=== PATIENT | male | born 1955 | race Caucasian/White ===

== ENCOUNTER → 2023-09-28 08:13 | Outpatient (REF) | payer MEDICARE, OTHER, SELFPAY | LOC: RCS 08:13 | PROVIDERS: ATTENDING PHYSICIAN Internal Medicine Cardiovascular Disease; FAMILY PHYSICIAN Family Medicine | DX: Q23.1 Congenital insufficiency of aortic valve (principal); I35.0 Nonrheumatic aortic (valve) stenosis | CPT/HCPCS: 93306 ==

== ENCOUNTER → 2023-11-01 11:22 | Outpatient (REF) | payer MEDICARE, OTHER, SELFPAY | LOC: RAD 11:22 | PROVIDERS: ATTENDING PHYSICIAN Family Medicine | DX: J18.9 Pneumonia, unspecified organism (principal) | CPT/HCPCS: 71046 ==

== ENCOUNTER 2023-11-12 19:05 | Emergency (ER) | payer MEDICARE, OTHER, SELFPAY ==
[2023-11-12 19:08] VITALS: BP 140/84
[2023-11-12 19:26] LABS: % Basophils 0.4 % (0-2); % Eosinophils 0.3 % (0-6); % Immature Granulocytes 1.4 % (0-0.5); % Lymphocytes 15.6 % (20.5-51.1); % Monocytes 6.9 % (1.7-9.3); % Neutrophils 75.4 % (42.2-75.2); Absolute Basophils 0.1 10^3/uL (0-0.2); Absolute Immature Granulocytes 0.2 10^3/uL (0-0.05); Absolute Lymphocytes 2.5 10^3/uL (1.2-3.4); Absolute Monocytes 1.1 10^3/uL (0.1-0.6); Absolute Neutrophils 11.9 10^3/uL (1.4-6.5); Hematocrit 39.5 % (39.0-52.0); Hemoglobin 14.2 g/dL (13.0-18.0); Mean Corp Hgb Conc. 35.9 g/dL (33.0-37.0); Mean Corpuscular Volume 83.3 fL (80.0-94.0); Nucleated Red Blood Cells % 0 % (-); Platelet Count 131 10^3/uL (130-400); Red Blood Cell Count 4.74 10^6/uL (4.70-6.10); Red Cell Dist. Width 13.1 % (11.5-14.5); White Blood Cell Count 15.8 10^3/uL (4.8-10.8)
[2023-11-12 19:36] LABS: Lactic Acid 1.3 mmol/L (0.7-2.0)
[2023-11-12 19:45] LABS: ALT (SGPT) 25 U/L (0-50); AST (SGOT) 34 U/L (17-59); Albumin 4.4 g/dl (3.5-5.0); Alkaline Phosphatase 135 U/L (38-126); Blood Urea Nitrogen 25 mg/dl (9-20); Calcium 10.3 mg/dl (8.4-10.2); Carbon Dioxide 24 mmol/L (22-30); Chloride 100 mmol/L (98-107); Glucose 114 mg/dl (70-99); Potassium 3.6 mmol/L (3.5-5.1); Sodium 135 mmol/L (135-145); Total Bilirubin 1.3 mg/dl (0.2-1.3); Total Protein 6.7 g/dl (6.3-8.2); eGFR > 60.00
--- NOTE | 2023-11-12 20:20 | ED.GENMED ---
History of Present Illness
General
Chief Complaint: Fever
Source: patient and spouse
Time Seen by Provider: 11/12/23 19:51
Travel History
Have you had any contact with someone who has COVID-19?: No
Do you have any symptoms of coronavirus? Fever > 100 degrees, chills, cough, shortness of breath, sore throat, loss of taste or smell, muscle aches, or headache?: No
History of Present Illness
History of Present Illness:
68-year-old male who states that he has had a productive cough, mild, throughout the week, and mild 'sore' feeling in the right flank area yesterday who awoke this morning with a mild headache associated with a fever of 102. Throughout the day,
fever and chills and fatigue has persisted. His headache is now much better. He just took Advil Cold and Sinus and says he feels remarkably better. He denies sore throat, rhinorrhea, chest pain, dyspnea. He notes urinary frequency but denies
dysuria or hematuria. He denies groin pain, abdominal pain, nausea, vomiting. He denies nuchal rigidity or photophobia. Patient has a history of CLL.
Past History
Past History
ED Past Medical History: Asthma, COPD, HTN, Hypercholesterolemia, Other (CLL) and Other (Thyroid nodules, migraines, bicuspid valve leaks, pneumonia, hepatitis C, kidney stones, thyroid cancer, shingles, skin cancer, anemia hypogonadism)
ED Past Surgical History: Tonsilectomy and Other (Needle biopsies of the thyroid, Benadryl for deviated septum, melanoma removed from the chest)
Social History
Tobacco: Non-smoker
Alcohol: Occasional
Drug: None
Personal:
Living: with family
Employment: Employed
Phy Exam
Physical Exam
Physical Exam:
GENERAL: Alert , in no apparent distress
EYE: pupils equal and reactive, no photophobia,
NECK: Supple, no significant adenopathy.
ENT: o/p clr, mm dry.
CARDIAC: Regular rate and rhythm .
LUNGS: Clear breath sounds bilaterally, no acute respiratory distress, no wheezes/rales/rhonchi
ABDOMEN: Soft, without focal tenderness, no r/g, no cvat
NEUROLOGICAL: Alert and oriented, no focal neuro deficits
SKIN: Warm and dry, skin intact.
MUSCULOSKELETAL: No edema, well perfused.
PSYCH: Normal and appropriate interaction.
Course
Orders/Labs/Results
Orders:
Orders
11/12/23 19:16
CMP [Comprehensive Metabolic Panel] Urgent
Complete Blood Count/With Diff Urgent
Lactic Acid Urgent
Influenza A+B Rapid Molecular Urgent
DIALLO Source: Nasal Swab
Specimen Description:
11/12/23 20:20
0.9% Sodium Chloride 1000 ml [Nss] 1,000 ml IV BOLUS
CR Chest - 2 Views Urgent
Comment:
Reason For Exam: FEVER COUGH
11/12/23 20:23
Influenza A+B Rapid Molecular Urgent
DIALLO Source: [facility]
Specimen Description:
11/12/23 20:33
COVID-19 Antigen Urgent
Source: Nasal Swab
Urinalysis Reflex To Culture Urgent
Date Specimen was Collected: 11/12/23
Time Specimen was Collected: 20:24
11/12/23 22:51
Amoxicillin 875 mg/Clav 125 mg [Augmentin 875 mg/125 mg] 1 tablet PO NOW STA
Doxycycline [Vibramycin] 100 mg PO NOW STA
Abnormal Lab Results
11/12/23 11/12/23
19:16 20:33
WBC 15.8 H 10^3/uL
(4.8-10.8)
MPV 11.0 H fL
(7.4-10.4)
Abs Immat Gran (auto) 0.2 H 10^3/uL
(0-0.05)
Absolute Neuts (auto) 11.9 H 10^3/uL
(1.4-6.5)
Absolute Monos (auto) 1.1 H 10^3/uL
(0.1-0.6)
Immature Gran % 1.4 H %
(0-0.5)
Neutrophils % 75.4 H %
(42.2-75.2)
Lymphocytes % 15.6 L %
(20.5-51.1)
BUN 25 H mg/dl
(9-20)
Glucose 114 H mg/dl
(70-99)
Calcium 10.3 H mg/dl
(8.4-10.2)
Alkaline Phosphatase 135 H U/L
(38-126)
Urine Ketones Trace A
(Negative)
11/12/23 19:16
11/12/23 19:16
Vital Signs
Initial and Last Documented VS:
Initial Vital Signs
Temp Pulse Resp BP Pulse Ox
98.9 F 112 24 140/84 96
11/12/23 19:08 11/12/23 19:08 11/12/23 19:08 11/12/23 19:08 11/12/23 19:08
Last Documented Vital Signs
Temp Pulse Resp BP Pulse Ox
98.9 F 84 21 130/63 93
11/12/23 19:08 11/12/23 22:30 11/12/23 22:30 11/12/23 21:00 11/12/23 22:30
*Critical Care Note
Total Time (30-74mins, 75-104mins- exclusive of procedures): Not Applicable
Update Note
Update Note:
Patient presents to the Emergency Department with fever fatigue___
Number and Complexity of Problems Addressed at the Encounter
� Chronic conditions affecting care:
� Acute Exacerbation and/or Progression of Chronic Illness:
� Differential Diagnosis includes: But not limited to influenza, COVID, pneumonia, UTI, neutropenic fever, etc.
Amount and/or Complexity of Data to be Reviewed and Analyzed
� I performed an independent evaluation of and my interpretation is:
EKG:
CT:
Xrays: Read by me, confirmed by radiology left lower lobe pneumonia noted
Laboratory Studies: Mild leukocytosis, otherwise generally unremarkable
Other:
� Review of other/old records reveals: Reviewed patient's prior discharge summaries including aortic valve replacement and colostomy reversal.
� Clinical information was obtained by an independent historian: who is bedside
� Prescriptions/Medications Considered but not given:
� Further testing considered but not performed:
Risk of Complications and/or Morbidity or Mortality of Patient Management
� Social determinants of health affecting care:
� Discussion with other providers (PCP, Hospitalists, Consultants, etc):
� Escalation of care including admission/observation vs risk of discharge considered: 10:55 PM reassessment here patient remains incredibly nontoxic and well-appearing, does not raise suspicion for sepsis/bacteremia, etc.
Patient eager to go home with treatment with p.o. antibiotics understanding importance of follow-up and reasons return to the ER immediately. He mentions that he had pneumonia in July and recovered well from that. His pulse ox remained stable
as does the rest of his vital signs.
ED Attending Note
-
Portions of this chart may have been created with voice recognition software.� Occasional wrong word or��sound alike� substitutions may have occurred due to the inherent limitations of voice recognition software.
Discharge Plan
Departure
Patient Disposition: Home (Routine Discharge)
Date of Disposition: 11/12/23
Time of Disposition: 22:52
Patient with high blood pressure during this ER visit?: Yes
Condition: Good
Discharge Problem:
Pneumonia
Instructions: Pneumonia in adults, BLOOD PRESSURE
Prescriptions:
New
amoxicillin-pot clavulanate 875-125 mg tablet
1 tab PO BID Qty: 14 0RF
doxycycline hyclate 100 mg capsule
100 mg PO BID Qty: 14 0RF
No Action
levothyroxine 75 MCG tablet
75 mcg PO DAILY
lorazepam 0.5 MG tablet
0.5 mg PO BID
ezetimibe 10 MG tablet
10 mg PO QPM
ascorbic acid (vitamin C) [Vitamin C] 500 MG tablet
500 mg PO DAILY
aspirin 81 MG tablet,delayed release (DR/EC)
81 mg PO DAILY
acyclovir 200 MG capsule
200 mg PO BID
cholecalciferol (vitamin D3) 2,000 UNITS tablet
2,000 units PO DAILY
metoprolol tartrate 25 MG tablet
25 mg PO BID
guaifenesin [Mucus Relief ER] 600 MG tablet extended release 12hr
600 mg PO BID
albuterol sulfate 1 PUFF HFA aerosol inhaler
2 puff inhalation R Q4HPRN PRN (Reason: sob)
alfuzosin 10 MG tablet extended release 24 hr
10 mg PO QPM
multivitamin with folic acid [Tab-A-Charla] 1 TABLET tablet
1 tab PO DAILY
sildenafil (pulm.hypertension) 20 MG tablet
20 mg PO DAILYPRN PRN (Reason: ed)
pseudoephedrine-ibuprofen 1 TAB tablet
2 tab PO DAILYPRN PRN (Reason: headache)
atorvastatin 40 MG tablet
40 mg PO DAILY 30 Days Qty: 30 0RF
testosterone [Testim] 5 GM gel
5 gm TD DAILY
acetaminophen 325 MG tablet
650 mg PO PRN PRN (Reason: PAIN)
acetaminophen [Tylenol Extra Strength] 500 MG tablet
1,000 mg PO PRN PRN (Reason: PAIN)
fluticasone furoate-vilanterol [Breo Ellipta] 1 EACH blister with device
1 inh PO DAILY
jwcavbcoms-gmtwulnsqwwng-xcri 1 TAB tablet
50 - 300 mg PO PRN PRN (Reason: PAIN)
hydrocodone-acetaminophen 1 TABLET tablet
1 tab PO Q4HPRN PRN (Reason: moderate to severe pain) Qty: 25 0RF
clopidogrel [Plavix] 75 MG tablet
75 mg PO DAILY Qty: 21 0RF
Patient Comments:
21 day regimen started 08/29/21-08/07/21, may resume
Referrals:
Irwin Kay MD [Family Provider] - Follow up in 2-3 days
UNKNOWN - PT DOES,NOT KNOW [Unknown Provider] -
Activity Restrictions/Additional Instructions:
PLEASE SEE YOUR DOCTOR IN CLOSE FOLLOW UP. IF YOU DEVELOP TROUBLE BREATHING, CONTINUED FEVERS, VOMITING, CHEST PAIN, DIZZINESS, VOMITING, BLEEDING, GET WORSE, DO NOT GET BETTER, OR OTHER WORRISOME SIGNS, GO TO THE ER IMMEDIATELY!
Interventions
Interventions:
*Risk Screen - Suicide Last Done: 11/12/23 19:08
*Neglect/Abuse Screening Last Done: 11/12/23 19:08
Discharge Date and Time
Print Language: TRINIDADIAN
[2023-11-12] MEDS: NSS 1000 IV (20:33)
[2023-11-12 20:35] VITALS: BP 119/67
[2023-11-12 20:52] LABS: Urine Albumin Negative (Neg - Trace); Urine Bilirubin Negative (Negative); Urine Character Clear (Clear); Urine Color Yellow; Urine Glucose Negative (Negative); Urine Ketone Trace (Negative); Urine Leukocyte Negative (Negative); Urine Nitrite Negative (Negative); Urine Occult Blood Negative (Negative); Urine Urobilinogen Negative (Neg - 1+)
[2023-11-12 21:00] VITALS: BP 130/63
[2023-11-12 21:04] LABS: COVID-19 Antigen Negative (Negative)
[2023-11-12 22:50] VITALS: BP 124/65
[2023-11-12] MEDS: AUGMENTIN 875 MG/125 MG 1 TABLET PO (23:01)
[2023-11-12] MEDS: VIBRAMYCIN 100 MG PO (23:01)
== END 2023-11-12 23:22 | disposition home or self-care (01) ==
LOC: EMR 19:05
PROVIDERS: Student in an Organized Health Care Education/Training Program; EMERGENCY PHYSICIAN Emergency Medicine; FAMILY PHYSICIAN Family Medicine
DX: J18.9 Pneumonia, unspecified organism (principal); J45.909 Unspecified asthma, uncomplicated; J44.9 Chronic obstructive pulmonary disease, unspecified; I10 Essential (primary) hypertension; E78.00 Pure hypercholesterolemia, unspecified; C91.10 Chronic lymphocytic leukemia of B-cell type not having achieved remission; E04.1 Nontoxic single thyroid nodule; J44.0 Chronic obstructive pulmonary disease with (acute) lower respiratory infection; Z85.820 Personal history of malignant melanoma of skin; Z85.828 Personal history of other malignant neoplasm of skin; Z85.850 Personal history of malignant neoplasm of thyroid; Z86.19 Personal history of other infectious and parasitic diseases; Z87.442 Personal history of urinary calculi; Z95.1 Presence of aortocoronary bypass graft; Z95.2 Presence of prosthetic heart valve
CPT/HCPCS: 99283; 96360; 71046; 80053; 81003; 83605; 85025; 87502; 87811

== ENCOUNTER → 2023-11-28 06:20 | Day surgery (SDC) | payer MEDICARE, OTHER, SELFPAY | LOC: GI 06:20 | PROVIDERS: ATTENDING PHYSICIAN Surgery; FAMILY PHYSICIAN Radiology Vascular & Interventional Radiology | DX: Z12.11 Encounter for screening for malignant neoplasm of colon (principal); Z86.010 Personal history of colon polyps; Z09 Encounter for follow-up examination after completed treatment for conditions other than malignant neoplasm; K57.30 Diverticulosis of large intestine without perforation or abscess without bleeding; D12.5 Benign neoplasm of sigmoid colon | CPT/HCPCS: 45380; 88305 ==

== ENCOUNTER → 2023-12-14 09:32 | Outpatient (REF) | payer MEDICARE, OTHER, SELFPAY | LOC: RAD 09:32 | PROVIDERS: ATTENDING PHYSICIAN Family Medicine | DX: Z87.01 Personal history of pneumonia (recurrent) (principal) | CPT/HCPCS: 71046 ==

== ENCOUNTER → 2023-12-26 12:40 | Outpatient (REF) | payer MEDICARE, OTHER, SELFPAY ==
[2023-12-26 14:11] LABS: Urine Albumin Negative (Neg - Trace); Urine Bilirubin Negative (Negative); Urine Character Clear (Clear); Urine Color Yellow; Urine Glucose Negative (Negative); Urine Ketone Negative (Negative); Urine Leukocyte Negative (Negative); Urine Nitrite Negative (Negative); Urine Occult Blood Negative (Negative); Urine Specific Gravity 1.005 (<1.030); Urine Urobilinogen Negative (Neg - 1+)
[2023-12-26 14:13] LABS: % Basophils 0.6 % (0-2); % Eosinophils 1.9 % (0-6); % Immature Granulocytes 1.8 % (0-0.5); % Lymphocytes 17.9 % (20.5-51.1); % Monocytes 6.3 % (1.7-9.3); % Neutrophils 71.5 % (42.2-75.2); Absolute Basophils 0.1 10^3/uL (0-0.2); Absolute Eosinophils 0.3 10^3/uL (0-0.7); Absolute Immature Granulocytes 0.3 10^3/uL (0-0.05); Absolute Lymphocytes 2.5 10^3/uL (1.2-3.4); Absolute Monocytes 0.9 10^3/uL (0.1-0.6); Absolute Neutrophils 10.1 10^3/uL (1.4-6.5); Hematocrit 43.2 % (39.0-52.0); Hemoglobin 14.6 g/dL (13.0-18.0); Mean Corp Hgb Conc. 33.8 g/dL (33.0-37.0); Mean Corpuscular Hgb 30.2 pg (27.0-31.0); Mean Corpuscular Volume 89.3 fL (80.0-94.0); Mean Platelet Volume 12.4 fL (7.4-10.4); Nucleated Red Blood Cells % 0 % (-); Platelet Count 99 10^3/uL (130-400); Red Blood Cell Count 4.84 10^6/uL (4.70-6.10); Red Cell Dist. Width 13.5 % (11.5-14.5); White Blood Cell Count 14.2 10^3/uL (4.8-10.8)
[2023-12-26 14:20] LABS: Erythrocyte Sed Rate 36 mm/hour (0-20)
[2023-12-26 14:37] LABS: ALT (SGPT) 29 U/L (0-50); AST (SGOT) 28 U/L (17-59); Albumin 4.3 g/dl (3.5-5.0); Alkaline Phosphatase 113 U/L (38-126); Blood Urea Nitrogen 17 mg/dl (9-20); Calcium 9.1 mg/dl (8.4-10.2); Carbon Dioxide 27 mmol/L (22-30); Chloride 104 mmol/L (98-107); Glucose 97 mg/dl (70-99); Potassium 3.8 mmol/L (3.5-5.1); Sodium 139 mmol/L (135-145); Total Bilirubin 0.8 mg/dl (0.2-1.3); Total Protein 6.8 g/dl (6.3-8.2); eGFR > 60.00
[2023-12-26 14:48] LABS: Procalcitonin 0.09 ng/ml (0.0-0.25)
== END ==
LOC: CLAB 12:40
PROVIDERS: ATTENDING PHYSICIAN Family Medicine
DX: R50.9 Fever, unspecified (principal)
CPT/HCPCS: 36415; 71046; 80053; 81003; 84145; 85025; 85652; 86140; 87040

== ENCOUNTER 2024-01-26 12:56 | Inpatient (IN) | payer MEDICARE, OTHER, SELFPAY ==
[2024-01-26] VITALS (18 sets, daily range): BP systolic 123–152; BP diastolic 63–89; BMI 24.5
[2024-01-26] MEDS: DUONEB 3 ML INH (09:03)
--- NOTE | 2024-01-26 09:09 | ED.GENMED ---
History of Present Illness
General
Chief Complaint: Cough
Source: patient, records and spouse
Exam Limitations: none
Time Seen by Provider: 01/26/24 08:35
Nursing documentation reviewed up to this point in time: agreed with
History of Present Illness
History of Present Illness:
68-year-old male history of CLL CAD status post bypass surgery is on his fourth course of antibiotics this year for pneumonia previously on Augmentin and doxycycline helped initially and then the symptoms return saw pulmonary Dr. Pinto, had a
sputum culture that revealed E. coli, recently started on Levaquin which again helped with his cough and fever this morning was coughing expectorating up some blood
He gets IVIG, from Dr. Cedeño he is on a twice daily medicine for CLL through hematology oncology [facility]
Tells me his platelet counts are usually 80-90,000 he takes baby aspirin
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
Past History
Past History
ED Past Medical History: Asthma, COPD, HTN, Hypercholesterolemia, Other (CLL) and Other (Thyroid nodules, migraines, bicuspid valve leaks, pneumonia, hepatitis C, kidney stones, thyroid cancer, shingles, skin cancer, anemia hypogonadism)
ED Past Surgical History: Appendectomy, Bowel resection and Tonsilectomy
Social History
Tobacco: Non-smoker
Alcohol: Occasional
Drug: None
Personal:
Living: with family
Employment: Employed
Review of Systems
Review of Systems
All Other Systems: Not applicable
Constitutional: Reports fatigue; Denies fever or chills
Respiratory: Reports cough, hemoptysis and trouble breathing
Cardiac: Reports no symptoms
ABD/GI: Reports no symptoms
: Reports no symptoms
Musculoskeletal: Reports no symptoms
Skin: Reports no symptoms
Phy Exam
Physical Exam
Physical Exam:
Physical Exam
General: 68 male mild distress coughing up some bloody sputum
Neck: No jaundice
Heart: s1/s2 regular rate and rhythm, no murmur. equal radial pulses.
Lungs: Rhonchi left greater than right
Abdomen: Nontender
Neuro: alert and oriented. no focal neurological deficits
Skin: no rash
Psychiatric: well kept. interactive and cooperative
Extremities: no edema. no calf tenderness.
Course
Orders/Labs/Results
Orders:
Orders
01/26/24 08:21
ECG [Electrocardiogram (*1)] Urgent
Reason for Study: Chest Pain
EKG- Treatment ONCE
01/26/24 08:35
Cardiac Monitoring- Treatment ONCE
01/26/24 08:36
Electrocardiogram (*1) Stat
Reason for Study: Other
Other Reason for Exam: pneumonia
EKG- Treatment ONCE
CR Chest - 2 Views Urgent
Comment:
Reason For Exam: sob
01/26/24 08:59
Type+Screen Urgent
Complete Blood Count/With Diff Urgent
Comprehensive Metabolic Panel Urgent
Lactic Acid Q4H
Comment: CANCEL 2nd LACTIC ACID IF 1st LACTIC ACID IS LESS THAN 2
Blood Culture Q30M
DILALO Source: Blood/Venous
Specimen Description:
01/26/24 09:02
Ipratropium/Albuterol Sulfate [Duoneb] 3 ml .ROUTE .STK-MED ONE
01/26/24 09:03
Ipratropium/Albuterol Sulfate [Duoneb] 3 ml INH R NOW ONE
01/26/24 09:15
Blood Culture Q30M
DIALLO Source: Blood/Venous
Specimen Description:
01/26/24 09:45
Respiratory Culture/Gram Stain Urgent
DIALLO Source: Sputum
Specimen Description:
Date Specimen was Collected: 01/26/24
Time Specimen was Collected: 09:06
Abnormal Lab Results
01/26/24
08:59
WBC 12.7 H 10^3/uL
(4.8-10.8)
MPV 11.7 H fL
(7.4-10.4)
Abs Immat Gran (auto) 0.2 H 10^3/uL
(0-0.05)
Absolute Neuts (auto) 7.2 H 10^3/uL
(1.4-6.5)
Absolute Monos (auto) 0.7 H 10^3/uL
(0.1-0.6)
Absolute Eos (auto) 1.2 H 10^3/uL
(0-0.7)
Immature Gran % 1.5 H %
(0-0.5)
Eosinophils % 9.7 H %
(0-6)
Chloride 108 H mmol/L
(98-107)
BUN 24 H mg/dl
(9-20)
Glucose 132 H mg/dl
(70-99)
01/26/24 08:59
01/26/24 08:59
Vital Signs
Initial and Last Documented VS:
Initial Vital Signs
Temp Pulse BP Pulse Ox
98.1 F 96 137/81 97
01/26/24 08:19 01/26/24 08:19 01/26/24 08:19 01/26/24 08:19
Last Documented Vital Signs
Temp Pulse Resp BP Pulse Ox
98.1 F 103 24 129/89 95
01/26/24 08:19 01/26/24 09:30 01/26/24 09:30 01/26/24 09:00 01/26/24 09:30
MDM/Problems Addressed
Differential Diagnosis Includes:
Infectious bronchitis irritation thrombocytopenia malignancy conceivably PE
MDM/Problems Addressed:
Cough of office
Chronic conditions affecting care:
Pneumonia CLL
Acute Exacerbation and/or Progression of Chronic Illness:
Pneumonia CLL
*Critical Care Note
Total Time (30-74mins, 75-104mins- exclusive of procedures): 15
Update Note
Update Note:
Update labs noted hemoglobin white count platelet count noted chest x-ray noted report noted believe it would be prudent to admit the patient to the hospital, message sent to the hospitalist and pulmonary
ED Attending Note
-
Portions of this chart may have been created with voice recognition software.� Occasional wrong word or��sound alike� substitutions may have occurred due to the inherent limitations of voice recognition software.
Discharge Plan
Departure
Patient Disposition: Admit
Date of Disposition: 01/26/24
Time of Disposition: 09:59
Admit to: Med/Surg
Presentation/result/management discussed w/ accepting MD/DO: Hospitalist
Condition: Fair
Covid-19: Not Applicable
Discharge Problem:
CLL (chronic lymphocytic leukemia), Acute bronchitis, Cough with hemoptysis
Prescriptions:
No Action
levothyroxine 75 MCG tablet
75 mcg PO DAILY
lorazepam 0.5 MG tablet
0.5 mg PO BID
ezetimibe 10 MG tablet
10 mg PO QPM
ascorbic acid (vitamin C) [Vitamin C] 500 MG tablet
500 mg PO DAILY
aspirin 81 MG tablet,delayed release (DR/EC)
81 mg PO DAILY
acyclovir 200 MG capsule
200 mg PO BID
cholecalciferol (vitamin D3) 2,000 UNITS tablet
2,000 units PO DAILY
metoprolol tartrate 25 MG tablet
25 mg PO BID
guaifenesin [Mucus Relief ER] 600 MG tablet extended release 12hr
600 mg PO BID
albuterol sulfate 1 PUFF HFA aerosol inhaler
2 puff inhalation R Q4HPRN PRN (Reason: sob)
alfuzosin 10 MG tablet extended release 24 hr
10 mg PO QPM
multivitamin with folic acid [Tab-A-Charla] 1 TABLET tablet
1 tab PO DAILY
sildenafil (pulm.hypertension) 20 MG tablet
20 mg PO DAILYPRN PRN (Reason: ed)
pseudoephedrine-ibuprofen 1 TAB tablet
2 tab PO DAILYPRN PRN (Reason: headache)
atorvastatin 40 MG tablet
40 mg PO DAILY 30 Days Qty: 30 0RF
testosterone [Testim] 5 GM gel
5 gm TD DAILY
acetaminophen 325 MG tablet
650 mg PO PRN PRN (Reason: PAIN)
acetaminophen [Tylenol Extra Strength] 500 MG tablet
1,000 mg PO PRN PRN (Reason: PAIN)
fluticasone furoate-vilanterol [Breo Ellipta] 1 EACH blister with device
1 inh PO DAILY
bwvytkhkma-muzkljxgvmucf-mssc 1 TAB tablet
50 - 300 mg PO PRN PRN (Reason: PAIN)
hydrocodone-acetaminophen 1 TABLET tablet
1 tab PO Q4HPRN PRN (Reason: moderate to severe pain) Qty: 25 0RF
clopidogrel [Plavix] 75 MG tablet
75 mg PO DAILY Qty: 21 0RF
Patient Comments:
21 day regimen started 08/29/21-08/07/21, may resume
amoxicillin-pot clavulanate 875-125 mg tablet
1 tab PO BID Qty: 14 0RF
doxycycline hyclate 100 mg capsule
100 mg PO BID Qty: 14 0RF
Referrals:
Irwin Kay MD [Family Provider] -
Interventions
Interventions:
*Risk Screen - Suicide Last Done: 01/26/24 08:36
*General Assessment Last Done: 01/26/24 08:36
*Neglect/Abuse Screening Last Done: 01/26/24 08:36
ED- Fall Risk Assessment Last Done: 01/26/24 08:36
*ED COVID-19 Vaccine History Last Done: 01/26/24 08:36
ED- Pulmonary Assessment Last Done: 01/26/24 08:36
Discharge Date and Time
Print Language: ROMANSH
[2024-01-26 09:19] LABS: % Basophils 1.3 % (0-2); % Eosinophils 9.7 % (0-6); % Immature Granulocytes 1.5 % (0-0.5); % Lymphocytes 25.2 % (20.5-51.1); % Monocytes 5.5 % (1.7-9.3); % Neutrophils 56.8 % (42.2-75.2); Absolute Basophils 0.2 10^3/uL (0-0.2); Absolute Eosinophils 1.2 10^3/uL (0-0.7); Absolute Immature Granulocytes 0.2 10^3/uL (0-0.05); Absolute Lymphocytes 3.2 10^3/uL (1.2-3.4); Absolute Monocytes 0.7 10^3/uL (0.1-0.6); Absolute Neutrophils 7.2 10^3/uL (1.4-6.5); Hematocrit 42.7 % (39.0-52.0); Hemoglobin 14.5 g/dL (13.0-18.0); Mean Corpuscular Hgb 29.6 pg (27.0-31.0); Mean Corpuscular Volume 87.1 fL (80.0-94.0); Mean Platelet Volume 11.7 fL (7.4-10.4); Nucleated Red Blood Cells % 0 % (-); Platelet Count 146 10^3/uL (130-400); Red Cell Dist. Width 13.3 % (11.5-14.5); White Blood Cell Count 12.7 10^3/uL (4.8-10.8)
[2024-01-26 09:23] LABS: Lactic Acid 1.8 mmol/L (0.7-2.0)
[2024-01-26 09:30] LABS: ALT (SGPT) 30 U/L (0-50); AST (SGOT) 36 U/L (17-59); Albumin 4.5 g/dl (3.5-5.0); Alkaline Phosphatase 121 U/L (38-126); Blood Urea Nitrogen 24 mg/dl (9-20); Calcium 9.5 mg/dl (8.4-10.2); Carbon Dioxide 26 mmol/L (22-30); Chloride 108 mmol/L (98-107); Estimated Creatinine Clearance 61 ml/min; Glucose 132 mg/dl (70-99); Potassium 4.5 mmol/L (3.5-5.1); Sodium 141 mmol/L (135-145); Total Protein 6.8 g/dl (6.3-8.2); eGFR 59.47
--- NOTE | 2024-01-26 12:00 | CON.PUL ---
Addendum entered and electronically signed by Carlos Paredes MD 01/26/24 13:15:
error below
Pt not taking Plavix
Will hold ASA
Original Note:
Consultation
Consultation Request
Date/Time Consultation Requested: 01/25
Date/Time Consultation Performed: 01/25
Reason for Consultation: Hemoptysis
Medical History
-
History of Present Illness:
History obtained from the patient, at bedside, ED staff, hospital records and outpatient records. Patient is a pleasant 68-year-old male with history of CLL, hypogammaglobulinemia on IVIG, on chronic Zanubrutinib follwed at [facility] ([facility]
[place]), with recent recurrent pneumonia, 4 times in 2023. More recently, he was seen in the pulmonary office, started on outpatient nebulized therapy. He was initially treated with Augmentin/doxycycline, but culture grew out E. coli transition to
Levaquin therapy. After a few days of Levaquin, he felt improved with regards to fatigue, cough improved. This morning, he woke up at 2 in the morning as is typical for him and proceeded to expectorate bright red blood. This progressed to the
point where he brought himself into [facility]. Throughout this he denied significant chest pain, chest tightness, lightheadedness, dizziness, palpitations or shortness of breath. He admits to some lightheadedness with cough spasms but
this is chronic. Upon arrival to [facility], afebrile, pulse 96, blood pressure 137/81, 97%. Chest x-ray suggest patchy pneumonia on the right side. Reviewed recent CT chest done at [facility] 01/10/2024 which reveals extensive right upper lobe
pneumonia and mild left lower lobe consolidation
Presently, patient has not expectorated now for 90 minutes which is the longest he has gone without coughing up blood. He otherwise appears to be comfortable
Patient exercises regularly, plays golf, plays pickle ball, last played 3 weeks ago
.
PMH: History of CLL diagnosed 2012 status post chemotherapy, recurred in 2020, now on chronic Zanubrutinib followed at [facility], IVIG for hypogammaglobulinemia, recurrent pneumonia, chronic thrombocytopenia, hypertension, hypercholesterolemia, history
of asthma, history of TIA, thyroid nodule, history of sleep apnea, not on CPAP for 10 years. Bypass surgery, aortic valvular surgery 2019 at , appendectomy, tonsillectomy, sigmoidectomy/colostomy secondary to diverticulitis 2020, colostomy
reversal 2021
Past Medical History
Past Medical History: None (See above)
Past Surgical History: None (See above)
Social History
Tobacco: Non-smoker
Alcohol: Occasional
Drug: None
Personal:
Living: With Family
Employment: Employed ([employer])
Family History
Family History: Other (Brother from CLL complicated by fungal pneumonia respiratory failure. Mother had CLL, in ninth decade. Family history negative for blood clots. Children are healthy)
Allergies / Home Medications
Allergies
Allergy/AdvReac Type Severity Reaction Status Date / Time
cat dander Allergy WHEEZING Verified 01/26/24 08:27
immune globulin,gamma (IgG) Allergy WHEEZING Verified 01/26/24 08:27
human
Iodinated Contrast Media Allergy wheezing Verified 01/26/24 08:27
[IV Dye, Iodine Containing
Contrast ]
ragweed pollen Allergy WHEEZING Verified 01/26/24 08:27
Home Medications
�Medication �Instructions �Recorded �Confirmed �Last Taken �Type
ascorbic acid (vitamin C) 500 mg 500 mg PO DAILY Supplement 10/30/16 01/26/24 01/25/24 History
tablet (Vitamin C)
ezetimibe 10 mg tablet 10 mg PO QPM High cholesterol 10/30/16 01/26/24 01/25/24 History
levothyroxine 75 mcg tablet 75 mcg PO DAILY Thyroid 10/30/16 01/26/24 01/25/24 History
lorazepam 0.5 mg tablet 0.5 mg PO BID Mental Health/Anxiety 10/30/16 01/26/24 01/25/24 History
acyclovir 200 mg capsule 400 mg PO BID Infection 09/24/19 01/26/24 01/25/24 History
aspirin 81 mg tablet,delayed 81 mg PO DAILY Blood clot 09/24/19 01/26/24 01/25/24 History
release prevention/tx
cholecalciferol (vitamin D3) 50 2,000 units PO DAILY Supplement 09/24/19 01/26/24 01/25/24 History
mcg (2,000 unit) tablet
metoprolol tartrate 25 mg tablet 25 mg PO BID Heart disease 09/24/19 01/26/24 01/25/24 History
albuterol sulfate 90 mcg/actuation 2 puff inhalation R Q4HPRN PRN 03/24/21 01/26/24 Unknown History
aerosol inhaler shortness of breath
alfuzosin 10 mg tablet,extended 10 mg PO QPM Urinary issue 04/30/21 01/26/24 01/25/24 History
release 24 hr
multivitamin with folic acid 400 1 tab PO DAILY Supplement 04/30/21 01/26/24 01/25/24 History
mcg tablet (Tab-A-Charla)
sildenafil (pulm.hypertension) 20 20 mg PO DAILYPRN PRN ed 04/30/21 01/26/24 05/31/21 20:00 History
mg tablet
Bifidobacterium infantis 4 mg 4 mg PO DAILY Gastrointestinal 01/26/24 01/26/24 01/25/24 History
capsule (Align) Issue
albuterol sulfate 2.5 mg/3 mL 2.5 mg inhalation R BID shortness 01/26/24 01/26/24 01/25/24 History
(0.083 %) solution for nebulization of breath
amlodipine 5 mg tablet (Norvasc) 5 mg PO DAILY Blood Pressure 01/26/24 01/26/24 01/25/24 History
atorvastatin 40 mg tablet 40 mg PO QPM High Cholesterol 01/26/24 01/26/24 01/25/24 History
calcium carbonate 500 mg PO DAILY Supplement 01/26/24 01/26/24 01/25/24 History
fluticasone furoate 100 1 inh inhalation R DAILY 01/26/24 01/26/24 01/25/24 History
mcg-vilanterol 25 mcg/dose Lung/Breathing Issues
inhalation powder (Breo Ellipta)
guaifenesin 600 mg tablet, 1,200 mg PO BID Gastrointestinal 01/26/24 01/26/24 01/25/24 History
extended release 12 hr (Mucinex) Issue
levofloxacin 500 mg tablet 500 mg PO NOON Infection 01/26/24 01/26/24 01/25/24 History
catcyrfm-psmzgh-srpze extract 5 3 cap PO BID Supplement 01/26/24 01/26/24 01/25/24 History
mg-6 mg-150 mg capsule (Fruit and
Vegetable Daily)
sulfamethoxazole 800 1 tab PO MOWEFR@0800 Infection 01/26/24 01/26/24 01/24/24 History
mg-trimethoprim 160 mg tablet
(Bactrim DS)
testosterone 50 mg/5 gram (1 %) 1 packet topical DAILY Hormonal 01/26/24 01/26/24 Unknown History
transdermal gel Agent
zanubrutinib 80 mg capsule 160 mg PO BID CLL 01/26/24 01/26/24 01/25/24 History
(Brukinsa)
zinc sulfate 25 mg zinc (110 mg) 25 mg PO DAILY Supplement 01/26/24 01/26/24 01/25/24 History
tablet
Review of Systems
-
All other systems: Negative unless noted
Vitals / Labs / Diagnostic Testing
Vital Signs
Temp Pulse Resp BP Pulse Ox
98.1 F 81 18 127/72 94
01/26/24 08:19 01/26/24 11:00 01/26/24 11:00 01/26/24 11:00 01/26/24 11:00
Lab Data
01/26/24 08:59
01/26/24 08:59
Microbiology
01/26/24 09:45 Sputum Gram Stain - Preliminary
Diagnostic Testing:
Physical Exam
-
HEENT: Normocephalic, Anicteric and Other (Old blood in posterior oropharynx, mild)
Cardiovascular: S1/S2, Regular Rhythm, Murmur (n), Rub (n) and Peripheral Edema (n)
Respiratory: Wheeze (n), Rales (Mild bibasilar, left greater than right), Rhonchi (n) and Non-Labored Respirations
GI: Soft, Non Distended and Non Tender
Neurology: Awake, Alert, Oriented and No Motor Deficits (Able to sit up without assistance)
Skin: Good Color and Other (No clubbing, cyanosis)
General: Comfortable
Assessment
-
68-year-old male with complex medical history including CLL on chronic Zanubrutinib, history of recurrent pneumonia recently identified as having E. coli, started on Levaquin therapy 3 days ago with subjective improvement. Now presents with
hemoptysis. We are asked to help from pulmonary standpoint 01/25
Acute hemoptysis
100-150cc
Right upper lobe pneumonia
E. coli per culture, 01/18/2024 R to ampicillin/cefazolin/gentamicin/tetracycline/Bactrim)
Scant mold growth
Status post Augmentin/doxycycline, switched to Levaquin with improvement
History of recurrent pneumonia, 4 times in 2023
Hypogammaglobulinemia, on IVIG
Conditions present prior to admission
Hypertension/hyperlipidemia
History of CLL, IVIG [id number] ([place])
chronic Zanubrutinib ([place])
History of sleep apnea, not using CPAP
S/p aortic valve replacement, CAB x 2018
Hypothyroidism
History of thyroid cancer status post thyroidectomy
History of hepatitis A
Diverticulitis status post sigmoidectomy with colostomy 2020
Colostomy reversal 2021
Family history of CLL
Plan/recommendations
At this time, patient with complex medical history
Salient features include recurrent pneumonia, recent CT chest 01/10/2024 with extensive right upper lobe consolidation, recent culture positive for E. coli with heavy growth started on Levaquin therapy with subjective improvement. There was also
scant mold growth
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
He has had recurrent pneumonias over the past 6 months with frequent antibiotic course
I reviewed all of his films. No significant film was a germination testing manager film/CT chest from 01/09 which showed extensive right upper lobe consolidation
Fortunately, his current x-ray appears to be improved, per my review
Moving forward
Differential is broad but includes bacterial pneumonia, fungal pneumonia given immunosuppression, thromboembolic disease, bronchiectasis. I cannot appreciate any bronchiectasis on CT imaging from 2 weeks ago
Given subjective and radiographic improvement, suspect this is from pneumonia
Will need to hold Plavix/aspirin for now
Maintain n.p.o., quantify hemoptysis
Empiric antitussive therapy, minimize cough for now. No indication for setroids
[id number] if there are any issues
Will maintain active type and screen
plts presently 146
Given possibility of fungal pneumonia in the setting of recurrent infection over the past few months, may need to empirically treat with antifungal therapy pending further data (Aspergillus, Mucor)
Consider infectious disease evaluation given immunosuppression and risk for fungal infection
Had recent sputum culture positive for mold 01/10/2024
In this regard, CT chest without contrast may be helpful to rule out mycetoma, but lack of cavitary process, mycetoma from 01/10/24 imaging is encouraging
Will also review prior imaging with IR (CT from 01/09 with IC contrast)
Bronchoscopy may be indicated acutely but for now we will hold off. Suspect bleeding coming from RUL based on recent imaging
less likely embolic phenomena
Given possible need for bronchoscopy, would recommend admission to ICU
Bedside bronchoscopy can be performed if needed
Would hold Zanubrutinib for now given risk for hemorrhage
Consider Heme/Onc to follow (Known to [facility])
Reviewed at length with critical care, ED, primary service, patient and
TCCT 50 min
--- NOTE | 2024-01-26 13:15 | HPS.HSE ---
Family Physician
-
Family Physician: Irwin Kay
Chief Complaint
-
Hemoptysis
History of Present Illness
68-year-old gentleman with CLL on Brukinsa and Bactrim prophylaxis presents with recurrent pneumonia and GI hemoptysis.
He states he has had 4 episodes of pneumonia requiring 4 courses of antibiotic. According to him his most recent sputum culture came back for E. coli and was put on Levaquin 4 days ago. He states his cough has gotten better but he was surprised to
have acute onset of large amount of hemoptysis mostly blood and very little phlegm. Not on blood thinners. Just on aspirin.
Patient never had hemoptysis before.
No fever chills.
No nausea or vomiting.
No dizziness or chest pain.
In ER he is hemodynamically stable and saturating well on room air. No acute respiratory distress noted.
He also has hypogammaglobinemia and on IVIG.
Medical History
Past Medical History
Past Medical History: Reports Asthma, CAD, Cancer (CLL diagnosed 9 years ago and was in remission after chemo;he has recurrence in last couple of years), CVA ([facility]IA), HTN, Hypercholesterolemia and Other (Hypogammaglobinemia)
Past Surgical History: Reports Bowel Resection (Sigmoidectomy/colectomy for diverticulitis) and Cardiac (CABG/Bovine AVR)
Social History
Tobacco: Former Smoker
Alcohol: Occasional
Drug: None
Personal:
Living: With Family
Family History
Family History: Not pertinent
Allergies / Home Medications
Allergies reflects when Allergies were last updated in [employer].
Home Medications with original date entered in [employer]
Allergy/Medication List:
Allergies
Allergy/AdvReac Type Severity Reaction Status Date / Time
cat dander Allergy WHEEZING Verified 01/26/24 08:27
immune globulin,gamma (IgG) Allergy WHEEZING Verified 01/26/24 08:27
human
Iodinated Contrast Media Allergy wheezing Verified 01/26/24 08:27
[IV Dye, Iodine Containing
Contrast ]
ragweed pollen Allergy WHEEZING Verified 01/26/24 08:27
Home Medications
ascorbic acid (vitamin C) 500 mg tablet (Vitamin C) 500 mg PO DAILY Supplement 10/30/16
ezetimibe 10 mg tablet 10 mg PO QPM High cholesterol 10/30/16
levothyroxine 75 mcg tablet 75 mcg PO DAILY Thyroid 10/30/16
lorazepam 0.5 mg tablet 0.5 mg PO BID Mental Health/Anxiety 10/30/16
acyclovir 200 mg capsule 400 mg PO BID Infection 09/24/19
aspirin 81 mg tablet,delayed release 81 mg PO DAILY Blood clot prevention/tx 09/24/19
cholecalciferol (vitamin D3) 50 mcg (2,000 unit) tablet 2,000 units PO DAILY Supplement 09/24/19
metoprolol tartrate 25 mg tablet 25 mg PO BID Heart disease 09/24/19
albuterol sulfate 90 mcg/actuation aerosol inhaler 2 puff inhalation R Q4HPRN PRN shortness of breath 03/24/21
alfuzosin 10 mg tablet,extended release 24 hr 10 mg PO QPM Urinary issue 04/30/21
multivitamin with folic acid 400 mcg tablet (Tab-A-Charla) 1 tab PO DAILY Supplement 04/30/21
sildenafil (pulm.hypertension) 20 mg tablet 20 mg PO DAILYPRN PRN ed 04/30/21
Bifidobacterium infantis 4 mg capsule (Align) 4 mg PO DAILY Gastrointestinal Issue 01/26/24
albuterol sulfate 2.5 mg/3 mL (0.083 %) solution for nebulization 2.5 mg inhalation R BID shortness of breath 01/26/24
amlodipine 5 mg tablet (Norvasc) 5 mg PO DAILY Blood Pressure 01/26/24
atorvastatin 40 mg tablet 40 mg PO QPM High Cholesterol 01/26/24
calcium carbonate 500 mg PO DAILY Supplement 01/26/24
fluticasone furoate 100 mcg-vilanterol 25 mcg/dose inhalation powder (Breo Ellipta) 1 inh inhalation R DAILY Lung/Breathing Issues 01/26/24
guaifenesin 600 mg tablet, extended release 12 hr (Mucinex) 1,200 mg PO BID Gastrointestinal Issue 01/26/24
levofloxacin 500 mg tablet 500 mg PO NOON Infection 01/26/24
ttsgytfu-fckfxw-ckhns extract 5 mg-6 mg-150 mg capsule (Fruit and Vegetable Daily) 3 cap PO BID Supplement 01/26/24
sulfamethoxazole 800 mg-trimethoprim 160 mg tablet (Bactrim DS) 1 tab PO MOWEFR@0800 Infection 01/26/24
testosterone 50 mg/5 gram (1 %) transdermal gel 1 packet topical DAILY Hormonal Agent 01/26/24
zanubrutinib 80 mg capsule (Brukinsa) 160 mg PO BID CLL 01/26/24
zinc sulfate 25 mg zinc (110 mg) tablet 25 mg PO DAILY Supplement 01/26/24
Review of Systems
-
A 12 point ROS was completed and negative except as noted: Yes
Physical Exam
Vital Signs
Vital Signs
Temp Pulse Resp BP Pulse Ox
98.1 F 85 20 145/86 97
01/26/24 08:19 01/26/24 13:00 01/26/24 13:00 01/26/24 13:00 01/26/24 13:00
Physical Exam
General: No Apparent Distress
HEENT: Moist mucous membranes
Respiratory: Crackles (Few coarse crackles in left base) and Non Labored Respirations; No Wheezes or Accessory Resp Muscle Use
Cardiac: S1/S2 and Regular Rhythm
GI: Soft
Musculoskeletal: No Edema
Neuro: AO x 3
Psych: Calm
Laboratory Results
-
01/26/24 08:59
01/26/24 08:59
Laboratory Results
Lactic Acid Cancelled 01/26/24 12:45
Total Bilirubin 1.0 mg/dl (0.2-1.3) 01/26/24 08:59
AST 36 U/L (17-59) 01/26/24 08:59
ALT 30 U/L (0-50) 01/26/24 08:59
Alkaline Phosphatase 121 U/L (38-126) 01/26/24 08:59
Data Reviewed
-
Diagnostic Radiology: Report Reviewed by me (CXR)
Lab Data: Labs Reviewed by me
Impression/Plan
-
Acute large amount hemoptysis-mostly blood mixed with minimal phlegm. Admit to ICU. Pulmonary consulted. He is current hemodynamically stable and not hypoxic. Review recent suptum cx data and CT chest data and consider repeating as appropriate.
Hx of Asthma - no flare -cw home inhaler tx.
Recurrent pneumonia-last 1 was a left lower lobe pneumonia currently on Levaquin for E. coli which was isolated in the sputum recently. Continue with Levaquin. In view of recurrent pneumonias, CLL on treatment consult ID for consultation.
CLL on Zanubrutinib - pt with recurrent pneumonias - consult Heme for an input regarding further use of the medication. CW Bactrim prophylaxis.
HTN -CW meds
Full code.
Discussed with pulmonary
[2024-01-26] MEDS: ZETIA PO (14:12)
[2024-01-26 14:14] LABS: INR 1.12; PT 14.2 Sec (11.4-14.6)
[2024-01-26 14:15] LABS: APTT 27.3 Sec (23.4-35.0)
[2024-01-26] MEDS: NORVASC 5 MG PO (14:20)
[2024-01-26] MEDS: ATIVAN 0.5 MG PO ×2 (14:21→21:52)
[2024-01-26] MEDS: LEVAQUIN 500 MG PO (14:21)
[2024-01-26] MEDS: VITAMIN C 500 MG PO (14:22)
[2024-01-26] MEDS: SYNTHROID 75 MCG PO (14:22)
[2024-01-26] MEDS: VITAMIN D3 (cholecalciferol) 50 MCG PO (14:22)
[2024-01-26] MEDS: LOPRESSOR 25 MG PO ×2 (14:22→21:52)
--- NOTE | 2024-01-26 14:28 | CON.ONC ---
Impression
Impression
- CLL
- acquired hypogammaglobulinemia
- recurrent respiratory infections
Plan
Plan
# Recurrent respiratory infections, hemoptysis
- pt with 4 respiratory infections over 6 months that appear to respond to abx then return. He presented to ED due to hemoptysis.
- pt has a hx of acquired hypogammaglobulinemia for which he receives IVIG every ~ 8 weeks, last received 5 weeks ago. Will check IgG and if < 400 then may require increased freq of IVIG in office.
- ok to hold Brukinsa in setting of reported hemoptysis. resume once this is confirmed resolved.
- due to repeat reported infections however no infiltrate on CXR with ongoing symptoms will check ESR, p-ANCA, c-ANCA to rule out a vasculitis.
Patient History
History of Present Illness
Watson is a 68-year-old gentleman with CLL on Brukinsa and Bactrim prophylaxis, IVIG every 2 months who presented with recurrent pneumonia and GI hemoptysis. He has been experiencing recurrent respiratory infections since july with admission
last in October. He has been following with pulm outpt. He was initially on 2 abx however then sputum culture was positive for E coli so recently switched to levofloxacin. ON this admission he also elicits episode of hemopytsis. CBC notable for
elevation in white count at 12.7 with elevated neutrophils, eosinophils, monocytes, normal lymphocytes. Hgb and plts normal. CXR showed no acute cardiopulm process, resolved left basilar PNA.
Regarding CLL hx, he was diagnosed in 2011 for which he received FCR with good response and late relapse. He is now on Burkinsa with normal lymphocyte count, hgb, platelets. He has acquired hypogammaglobulinemia for which he receives IVIG every 6-8
weeks to keep IgG > 600, last received in November and due again 02/18.
Patient Medication
�Medication �Instructions �Recorded �Confirmed �Last Taken �Type
ascorbic acid (vitamin C) 500 mg 500 mg PO DAILY Supplement 10/30/16 01/26/24 01/25/24 History
tablet (Vitamin C)
ezetimibe 10 mg tablet 10 mg PO QPM High cholesterol 10/30/16 01/26/24 01/25/24 History
levothyroxine 75 mcg tablet 75 mcg PO DAILY Thyroid 10/30/16 01/26/24 01/25/24 History
lorazepam 0.5 mg tablet 0.5 mg PO BID Mental Health/Anxiety 10/30/16 01/26/24 01/25/24 History
acyclovir 200 mg capsule 400 mg PO BID Infection 09/24/19 01/26/24 01/25/24 History
aspirin 81 mg tablet,delayed 81 mg PO DAILY Blood clot 09/24/19 01/26/24 01/25/24 History
release prevention/tx
cholecalciferol (vitamin D3) 50 2,000 units PO DAILY Supplement 09/24/19 01/26/24 01/25/24 History
mcg (2,000 unit) tablet
metoprolol tartrate 25 mg tablet 25 mg PO BID Heart disease 09/24/19 01/26/24 01/25/24 History
albuterol sulfate 90 mcg/actuation 2 puff inhalation R Q4HPRN PRN 03/24/21 01/26/24 Unknown History
aerosol inhaler shortness of breath
alfuzosin 10 mg tablet,extended 10 mg PO QPM Urinary issue 04/30/21 01/26/24 01/25/24 History
release 24 hr
multivitamin with folic acid 400 1 tab PO DAILY Supplement 04/30/21 01/26/24 01/25/24 History
mcg tablet (Tab-A-Charla)
sildenafil (pulm.hypertension) 20 20 mg PO DAILYPRN PRN ed 04/30/21 01/26/24 05/31/21 20:00 History
mg tablet
Bifidobacterium infantis 4 mg 4 mg PO DAILY Gastrointestinal 01/26/24 01/26/24 01/25/24 History
capsule (Align) Issue
albuterol sulfate 2.5 mg/3 mL 2.5 mg inhalation R BID shortness 01/26/24 01/26/24 01/25/24 History
(0.083 %) solution for nebulization of breath
amlodipine 5 mg tablet (Norvasc) 5 mg PO DAILY Blood Pressure 01/26/24 01/26/24 01/25/24 History
atorvastatin 40 mg tablet 40 mg PO QPM High Cholesterol 01/26/24 01/26/24 01/25/24 History
calcium carbonate 500 mg PO DAILY Supplement 01/26/24 01/26/24 01/25/24 History
fluticasone furoate 100 1 inh inhalation R DAILY 01/26/24 01/26/24 01/25/24 History
mcg-vilanterol 25 mcg/dose Lung/Breathing Issues
inhalation powder (Breo Ellipta)
guaifenesin 600 mg tablet, 1,200 mg PO BID Gastrointestinal 01/26/24 01/26/24 01/25/24 History
extended release 12 hr (Mucinex) Issue
levofloxacin 500 mg tablet 500 mg PO NOON Infection 01/26/24 01/26/24 01/25/24 History
fdkqlglq-hatrhu-pulyv extract 5 3 cap PO BID Supplement 01/26/24 01/26/24 01/25/24 History
mg-6 mg-150 mg capsule (Fruit and
Vegetable Daily)
sulfamethoxazole 800 1 tab PO MOWEFR@0800 Infection 01/26/24 01/26/24 01/24/24 History
mg-trimethoprim 160 mg tablet
(Bactrim DS)
testosterone 50 mg/5 gram (1 %) 1 packet topical DAILY Hormonal 01/26/24 01/26/24 Unknown History
transdermal gel Agent
zanubrutinib 80 mg capsule 160 mg PO BID CLL 01/26/24 01/26/24 01/25/24 History
(Brukinsa)
zinc sulfate 25 mg zinc (110 mg) 25 mg PO DAILY Supplement 01/26/24 01/26/24 01/25/24 History
tablet
Active Medications
Generic Name Dose Route Start Last Admin
Trade Name Freq PRN Reason Stop Dose Admin
Acyclovir Sodium 400 mg 01/26/24 20:00
Acyclovir Sodium 200 Mg Capsule PO 02/05/24 19:59
BID MITRA
Albuterol 2 puff 01/26/24 13:20
Albuterol Hfa [90 Mcg/Dose] Inhaler INH
R Q4HPRN PRN
shortness of breath
Protocol
Albuterol Sulfate 2.5 mg 01/26/24 20:00
Albuterol Nebs 2.5 Mg/3 Ml Ampul INH
R BID MITRA
Protocol
Albuterol/Ipratropium 3 ml 01/26/24 13:20
Ipratropium 0.5/Albuterol 3 Mg (3 Ml Ampul) INH
R Q4HPRN PRN
shortness of breath or wheezin
Protocol
Amlodipine Besylate 5 mg 01/26/24 13:20 01/26/24 14:20
Amlodipine 5 Mg Tablet PO 02/23/24 13:19 5 mg
DAILY MITRA Administration
Ascorbic Acid 500 mg 01/26/24 13:20 01/26/24 14:22
Ascorbic Acid 500 Mg Tablet PO 02/23/24 13:19 500 mg
DAILY MITRA Administration
Atorvastatin Calcium 40 mg 01/26/24 18:00
Atorvastatin (Lipitor) 40 Mg Tablet PO 02/23/24 17:59
QPM MITRA
Benzonatate 100 mg 01/26/24 13:20
Benzonatate 100 Mg Capsule PO 02/23/24 13:19
TIDPRN PRN
cough
Calcium Carbonate 500 mg 01/27/24 08:00
Calcium Carbonate 500 Mg Tablet PO 02/24/24 07:59
DAILY MITRA
Cholecalciferol 50 mcg 01/26/24 13:20 01/26/24 14:22
Cholecalciferol (Vitamin D3) 50 Mcg Tablet (2,000 Units) PO 02/23/24 13:19 50 mcg
DAILY MITRA Administration
Ezetimibe 10 mg 01/26/24 13:20 01/26/24 14:12
Ezetimibe (Zetia) 10 Mg Tablet PO 02/23/24 13:19 Not Given
QPM MITRA
Guaifenesin 1,200 mg 01/26/24 20:00
Guaifenesin 600 Mg Extended Release Tablet PO 02/23/24 19:59
BID MITRA
Lactobacillus/Bifidobacterium 1 cap 01/27/24 08:00
Lactobac/Bifidobac (Visbiome) PO 02/24/24 07:59
DAILY MITRA
Levofloxacin 500 mg 01/26/24 15:00 01/26/24 14:21
Levofloxacin 500 Mg Tablet PO 500 mg
NOON MITRA Administration
Levothyroxine Sodium 75 mcg 01/26/24 13:20 01/26/24 14:22
Levothyroxine 75 Mcg Tablet PO 02/23/24 13:19 75 mcg
DAILY@0600 MITRA Administration
Lorazepam 0.5 mg 01/26/24 13:20 01/26/24 14:21
Lorazepam 0.5 Mg Tablet PO 02/23/24 13:19 0.5 mg
BID MITRA Administration
Metoprolol Tartrate 25 mg 01/26/24 13:20 01/26/24 14:22
Metoprolol 25 Mg Regular Release Tablet PO 02/23/24 13:19 25 mg
BID MITRA Administration
Non-Formulary Medication 160 mg 01/26/24 20:00
Zanubrutinib [Brukinsa] PO 02/23/24 19:59
BID MITRA
Fluticasone Furoate- 1 inh 01/26/24 13:20
Vilanterol [Breo INH 02/23/24 13:19
Ellipta] 100-25 Mcg/ R DAILY MITRA
Dose 1 Inhalation
Daily
Non-Formulary Medication 1 packet 01/26/24 13:20
Testosterone TOPICAL 02/23/24 13:19
DAILY MITRA
Sodium Chloride 0 flush 01/26/24 14:00
Sodium Chloride 0.9% (Flush) Syringe IV 02/23/24 13:59
PER PROTOCOL MITRA
Tamsulosin HCl 0.4 mg 01/26/24 18:00
Tamsulosin 0.4 Mg Capsule PO 02/23/24 17:59
QPM MITRA
Trimethoprim/Sulfamethoxazole 1 tablet 01/29/24 08:00
Sulfamethoxazole (800 Mg)/Trimethoprim (160 Mg) Tablet PO
MOWEFR@0800 MITRA
Zinc Sulfate 220 mg 01/27/24 08:00
Zinc Sulfate 220 Mg Capsule PO 02/24/24 07:59
DAILY MITRA
Review of Systems
-
History Source: Patient
Constitutional: Denies Fever
EENT: Denies Sore Throat
Respiratory: Reports Cough and Hemoptysis
Cardiac: Denies Chest Pain
Neuro: Denies Headache
Hematologic/Lymphatic: Denies Swollen Glands
Allergy / Immunology: Reports Asthma
Physical Exam
-
General: Well Developed, Well Nourished and No Apparent Distress
HEENT: Negative Jaundice
Cardiology: Normal Sinus Rhythm
Pulmonary: Clear; Negative Wheezes
Musculoskeletal: No Cyanosis and No Edema
Neurology: Non Focal
Psych: Calm
Labs
Lab Results
WBC 12.7 10^3/uL (4.8-10.8) H 01/26/24 08:59
RBC 4.90 10^6/uL (4.70-6.10) 01/26/24 08:59
Hgb 14.5 g/dL (13.0-18.0) 01/26/24 08:59
Hct 42.7 % (39.0-52.0) 01/26/24 08:59
MCV 87.1 fL (80.0-94.0) 01/26/24 08:59
MCH 29.6 pg (27.0-31.0) 01/26/24 08:59
MCHC 34.0 g/dL (33.0-37.0) 01/26/24 08:59
RDW 13.3 % (11.5-14.5) 01/26/24 08:59
Plt Count 146 10^3/uL (130-400) 01/26/24 08:59
MPV 11.7 fL (7.4-10.4) H 01/26/24 08:59
Abs Immat Gran (auto) 0.2 10^3/uL (0-0.05) H 01/26/24 08:59
Absolute Neuts (auto) 7.2 10^3/uL (1.4-6.5) H 01/26/24 08:59
Absolute Lymphs (auto) 3.2 10^3/uL (1.2-3.4) 01/26/24 08:59
Absolute Monos (auto) 0.7 10^3/uL (0.1-0.6) H 01/26/24 08:59
Absolute Eos (auto) 1.2 10^3/uL (0-0.7) H 01/26/24 08:59
Absolute Basos (auto) 0.2 10^3/uL (0-0.2) 01/26/24 08:59
Immature Gran % 1.5 % (0-0.5) H 01/26/24 08:59
Neutrophils % 56.8 % (42.2-75.2) 01/26/24 08:59
Lymphocytes % 25.2 % (20.5-51.1) 01/26/24 08:59
Monocytes % 5.5 % (1.7-9.3) 01/26/24 08:59
Eosinophils % 9.7 % (0-6) H 01/26/24 08:59
Basophils % 1.3 % (0-2) 01/26/24 08:59
Creatinine 1.3 mg/dL (0.7-1.3) 01/26/24 08:59
Vital Signs
Vital Signs
Temp Pulse Resp BP Pulse Ox
98.1 F 96 18 139/71 94
01/26/24 08:19 01/26/24 14:22 01/26/24 14:00 01/26/24 14:22 01/26/24 14:00
--- NOTE | 2024-01-26 14:47 | PTCARENOTE ---
patient received from ED, assessments per work list. labs sent. oriented to room. plan of care. call jolly in reach
[2024-01-26] MEDS: NON-FORMULARY ITEM 1 INH INH (14:50)
[2024-01-26 15:25] LABS: Erythrocyte Sed Rate 13 mm/hour (0-20)
--- NOTE | 2024-01-26 15:48 | CON.ID ---
Consultation
-
Date/Time Consultation Requested: January 26, 2024 1320
Date/Time Consultation Performed: January 26, 2024 1550
Requesting Provider: Dr. Adelfo Evans
Performing Provider: Dr. Jessica Magallanes
Reason for Consultation: CLL, hemoptysis
Chief Complaint / Past History
Chief Complaint
Coughing up blood
History of Present Illness
History obtained from the patient as well as review from medical records. He is a 68-year-old male with hypogammaglobulinemia on IVIG every 8 weeks, recurrent CLL currently on send new routine nebs since May 2023 who presented to the ER today
due to hemoptysis. He has had 4 episodes of pneumonia since July 2023. The first 1 was treated with Augmentin, second episode with doxycycline and Augmentin, third episode doxycycline and Augmentin. The fourth time again he was placed on
Augmentin and doxycycline until January 17 sputum culture resulted as E. coli, scant mold and he was changed to levofloxacin 500 mg daily for 14 days. His symptoms of pneumonia consist of fever, chills, and cough. Since being on levofloxacin 4 days
ago, he feels much improved with decreased cough. He was also using nebulized treatment. Last night he got up and coughed up large amount of bloody sputum. He went back to bed. However this morning can he coughed up sputum with blood. He
therefore came to the hospital. He is afebrile. He is oxygenating well. White count 12.7. Chest x-ray shows no acute pulmonary process with resolution of previous left basilar opacity. So far he has not had hemoptysis while in the ICU. No
recent fevers or chills. No diarrhea. No sinus congestion. No headache. He reports his brother had CLL and of fungal pneumonia at age 59. He recently had chest CT without contrast at [facility] on January 09 which showed new moderate right upper
lobe and right middle lobe consolidation, mild left lower lobe consolidation, increased right hilar lymphadenopathy most likely reactive.
Past History
Additional Past Medical History:
CLL diagnosed 1999 2011 status post chemotherapy with recurrence in 2020, currently on Zanubrutinib since 05/2023 ([facility])
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
Hypertension
Chronic thrombocytopenia
Recurrent pneumonia
TIA
CAD status post CAB x 1
Bio-Aortic valve replacement
Appendectomy
Diverticulitis status post sigmoidectomy with colostomy with subsequent colostomy reversal
Allergy History:
cat dander Allergy (Verified 01/26/24 08:27)
WHEEZING
immune globulin,gamma (IgG) human Allergy (Verified 01/26/24 08:27)
WHEEZING
Iodinated Contrast Media [IV Dye, Iodine Containing Contrast ] Allergy (Verified 01/26/24 08:27)
wheezing
ragweed pollen Allergy (Verified 01/26/24 08:27)
WHEEZING
Social History
Tobacco: Non-Smoker
Alcohol: None
Drug: None
Personal:
Family History
Family History: Not Pertinent
Review of Systems
Review of Systems
General: Negative Fever, Chills or Change in Appetite
HEENT: Negative Sinus Problems or Pharyngitis
Cardiovascular: Negative Chest Pain or Dyspnea
Respiratory: Cough; Negative Dyspnea
Gasteroenterology: Other (no diarrhea); Negative Nausea or Vomiting
Genital / Urological: Negative Dysuria or Flank Pain
Endocrine: Negative Weakness or Fatigue
Musculoskeletal: Negative Arthralgias
Skin / Hair / Nails: Negative Rash
Neurological: Negative Dizziness
All systems: All other systems were reviewed and were negative
Vital Signs
Temp Pulse Resp BP Pulse Ox
97.6 F 87 16 129/77 97
01/26/24 15:23 01/26/24 15:03 01/26/24 15:03 01/26/24 15:00 01/26/24 15:03
Physical Exam
Physical Exam
Constitutional: No Acute Distress and Comfortable
Eyes: No Conjunctival Hemorrhage and Sclera Anicteric
Cardiovascular: Regular Rate and S1/S2
Pulmonary: Coarse (Mild left base coarse BS)
Gastrointestinal: Soft, Non Tender, Non Distended and Normal Bowel Sounds
Genito-Urinary: Negative CVA Tenderness
Extremities: Negative Edema
Neurological: AO x 3
Lab / Diagnostic Study Results
01/26/24 08:59
01/26/24 08:59
Abs Immat Gran (auto) 0.2 10^3/uL (0-0.05) H 01/26/24 08:59
Absolute Neuts (auto) 7.2 10^3/uL (1.4-6.5) H 01/26/24 08:59
Absolute Lymphs (auto) 3.2 10^3/uL (1.2-3.4) 01/26/24 08:59
Absolute Monos (auto) 0.7 10^3/uL (0.1-0.6) H 01/26/24 08:59
Absolute Basos (auto) 0.2 10^3/uL (0-0.2) 01/26/24 08:59
Immature Gran % 1.5 % (0-0.5) H 01/26/24 08:59
Neutrophils % 56.8 % (42.2-75.2) 01/26/24 08:59
Lymphocytes % 25.2 % (20.5-51.1) 01/26/24 08:59
Monocytes % 5.5 % (1.7-9.3) 01/26/24 08:59
Eosinophils % 9.7 % (0-6) H 01/26/24 08:59
Basophils % 1.3 % (0-2) 01/26/24 08:59
ESR 13 mm/hour (0-20) 01/26/24 15:01
PT 14.2 Sec (11.4-14.6) 01/26/24 13:49
INR 1.12 01/26/24 13:49
Lactic Acid Cancelled 01/26/24 12:45
C-Reactive Protein 6.60 mg/L (0.0-10.00) 01/26/24 15:01
Microbiology Results
Micro:
01/26/24 13:49 Blood Culture - Pending
Blood/Venous
01/26/24 09:45 Respiratory Culture - Pending
Sputum Gram Stain - Preliminary
01/26/24 08:59 Blood Culture - Pending
Blood/Venous
01/26/24 CXR: No acute cardiopulmonary process. Resolved left basilar pneumonia.
Assessment / Plan
# Hemoptysis
# Recurrent PNA x 4 since Jul 2023. Most recent E. coli
# Recurrent CLL on Zanubrutinib since 05/2023 ([facility]), prophylactic acyclovir and Bactrim 3x/wk
# Hypogammaglobulinemia on IVIG q8 weeks
- 01/18/24 Sputum E. coli, scant mold
-07/30/18 Sputum x 2: Aspergillus fumigatus
- 01/10/[address] (at [facility]): new moderate RUL, RML opacities, mild LLL opacity
- Of note Zanubrutinib increases hemorrhage, drug on hold.
- Follow sputum cx.
- At this time unclear if Aspergillus is playing a role in hemoptysis. He is nontoxic- appearing, oxygenating well, feels well.
Will like to ascertain if mold is invasive vs noninvasive. Can start with checking serum Aspergillus galactomannan assay and Fungitell.
Interestingly, + peripheral eosinophilia. ?Allergic Bronchopulmonary Aspergillosis. Check total IgE, and Aspergillus-IgE
-Continue levofloxacin for now.
--- NOTE | 2024-01-26 17:16 | PTCARENOTE ---
patient with moist cough, expectorated small amount thick blood sputum, nickel sized. patient to remain npo per orders from Dr Evans. darryl text to hospitalist and steel pourer helper to update
[2024-01-26] MEDS: FLOMAX 0.400000000000000022 MG PO (17:24)
[2024-01-26] MEDS: ZETIA 10 MG PO (17:24)
[2024-01-26] MEDS: LIPITOR 40 MG PO (17:24)
[2024-01-26] MEDS: TESSALON PERLES 100 MG PO (17:31)
--- NOTE | 2024-01-26 18:36 | PTCARENOTE ---
Addendum entered by Nancy Cintron RN 01/26/24 19:14:
stat cxr taken, RT to admin stat neb. report to oncoming RN
Original Note:
patient rang call light, hemoptysis resumed, expectorated @50 ml bright red blood. patient states 'I'm trying not to cough'. turned to right side. Precast Worker GISELLE updated, to assess patient at bedside
[2024-01-26 19:12] LABS: Fibrinogen 380 MG/DL (199-459)
[2024-01-26] MEDS: TRANEXAMIC ACID 1000 MG INH (19:14)
[2024-01-26] MEDS: VENTOLIN NEBULES 2.5 MG INH (19:14)
[2024-01-26] MEDS: BENADRYL 50 MG IV (19:56)
[2024-01-26] MEDS: SOLU-CORTEF 200 MG IV (19:56)
--- NOTE | 2024-01-26 20:00 | PTCARENOTE ---
Pt Aox3, VSS, NSR on monitor, room air. no complaints of pain. Right long coarse and rhonchus anterior and posterior. Pt is coughing up bright red sputum with clots. CXR, CT scan and TXA neb treatment ordered. After TXA nebulizer, pts hemoptysis
subsided. Pt has allergy to Iodine, he received prep of Benadryl and Hydrocortisone.
[2024-01-26] MEDS: MUCINEX 1200 MG PO (21:52)
[2024-01-26] MEDS: ZOVIRAX 400 MG PO (21:52)
[2024-01-27] VITALS (24 sets, daily range): BP systolic 98–142; BP diastolic 62–88; BMI 23.4
[2024-01-27] MEDS: TRANEXAMIC ACID 500 MG INH ×4 (02:56→23:13)
[2024-01-27 04:07] LABS: Hematocrit 38.3 % (39.0-52.0); Hemoglobin 13.4 g/dL (13.0-18.0); Mean Corpuscular Volume 85.7 fL (80.0-94.0); Mean Platelet Volume 11.6 fL (7.4-10.4); Platelet Count 142 10^3/uL (130-400); Red Blood Cell Count 4.47 10^6/uL (4.70-6.10); Red Cell Dist. Width 13.4 % (11.5-14.5); White Blood Cell Count 10.9 10^3/uL (4.8-10.8)
[2024-01-27 04:25] LABS: Blood Urea Nitrogen 24 mg/dl (9-20); Calcium 9.2 mg/dl (8.4-10.2); Carbon Dioxide 25 mmol/L (22-30); Chloride 106 mmol/L (98-107); Estimated Creatinine Clearance 79 ml/min; Glucose 130 mg/dl (70-99); Potassium 4.2 mmol/L (3.5-5.1); Sodium 140 mmol/L (135-145); eGFR > 60.00
--- NOTE | 2024-01-27 06:03 | PTCARENOTE ---
Pt assessment unchanged, 2nd TXA neb given per order.
[2024-01-27] MEDS: SYNTHROID 75 MCG PO (06:38)
--- NOTE | 2024-01-27 07:14 | W.PN.INTV ---
Today's Communication / Plan
Recommendations
Doing well, stable on RA
Hb stable
Repeat CT not impressive, PNA mostly resolved from prior scan 01/09
Hemoptysis noted, observation next 24 hours
ID following for abx recs
Consider ENT eval for UA eval
Assessment
-
68-year-old male with complex medical history including CLL on chronic Zanubrutinib, history of recurrent pneumonia recently identified as having E. coli, started on Levaquin therapy 3 days ago with subjective improvement. Now presents with
hemoptysis. We are asked to help from pulmonary standpoint 01/25
Acute hemoptysis, 100-150cc
Right upper lobe pneumonia
E. coli per culture (01/18/2024 R to ampicillin/cefazolin/gentamicin/tetracycline/Bactrim)
Scant mold growth
Status post Augmentin/doxycycline, switched to Levaquin with improvement
History of recurrent pneumonia, 4 times in 2023
Hypogammaglobulinemia, on IVIG
Conditions present prior to admission
Hypertension/hyperlipidemia
History of CLL, IVIG [id number] ([place])
chronic Zanubrutinib ([facility])
History of sleep apnea, not using CPAP
S/p aortic valve replacement, CAB x 2018
Hypothyroidism
History of thyroid cancer status post thyroidectomy
History of hepatitis A
Diverticulitis status post sigmoidectomy with colostomy 2020
Colostomy reversal 2021
Family history of CLL
Plan
At this time, he is stable on RA
Hemoptysis ongoing, about 120cc total
Will observe next 24 hours
Hb stable
Salient features include recurrent pneumonia, recent CT chest 01/10/2024 with extensive right upper lobe consolidation, recent culture positive for E. coli with heavy growth started on Levaquin therapy with subjective improvement. There was also
scant mold growth
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
He has had recurrent pneumonias over the past 6 months with frequent antibiotic course
ID following for abx regiment
I personally reviewed all of his films. CT chest from 01/09 which showed extensive right upper lobe consolidation
Fortunately, his current x-ray appears to be improved, per my review
Repeat CT showing no significant parenchymal disease on R, speckled appearance on L
Consideration for ENT eval to r/o upper airway cause
Hb stable
Continue to hold Plavix/aspirin for now
Advance diet to clears
Nebs PRN, inhalers
Follow CBC
Bronchoscopy may be indicated but for now we will hold off.
Can quantify another 24 hours to determine direction
Would hold Zanubrutinib for now given risk for hemorrhage
Consider Heme/Onc to follow (Known to [facility])
-----
Critical Care time 35 mins -- The patient is admitted for acute critical illness for the treatment of vital organ failure and/or prevention of further life-threatening conditions. Total care includes time spent in review of history, physical exam,
medications, hemodynamic/ventilator parameters, laboratory data, imaging and discussion with house staff, pharmacy, respiratory therapy, cable repairer, and nursing.
Subjective Dataa
Subjective Data
Date of Service:
Date of Service: January 27, 2024
Chief Complaint: Iron Pellet Tester Follow Up
Subjective:
hemoptysis ongoing, total amount in containers ~120cc
stable on room air otherwise, no acute distress
Objective Data
Data Reviewed
Vital Signs / I&O / Oxygen:
Vital Signs
Temp Pulse Resp BP Pulse Ox
98.0 F 62 15 114/68 93
01/27/24 03:43 01/27/24 06:00 01/27/24 06:00 01/27/24 06:00 01/27/24 06:00
Intake and Output
01/26/24 01/27/24 01/28/24
06:59 06:59 06:59
Intake Total 240 / 240
Output Total 1550 / 1550
Balance -1310 / -1310
SaO2 93
Nasal Cannula flow liters per 92
minute
Physical Exam
General: Comfortable and Other (NAD)
HEENT: Normocephalic, Anicteric and Moist Mucous Membranes
Cardiovascular: S1-S2 and Regular Rhythm
Respiratory: Rhonchi (L>R) and Non-Labored Respirations
GI: Soft, Non Distended and Non Tender
Neurology: Awake, Alert, Oriented, AO x 3 and No Motor Deficits
Skin: Warm, Dry and Good Color
Labs/Micro/Reports
Lab Data
01/27/24 03:48
01/27/24 03:48
Laboratory Results
01/26/24
13:49
PT 14.2
INR 1.12
APTT 27.3
Microbiology
01/26/24 09:45 Sputum Gram Stain - Preliminary
[2024-01-27] MEDS: VENTOLIN NEBULES 2.5 MG INH ×2 (07:57→19:40)
[2024-01-27] MEDS: NON-FORMULARY ITEM 1 INH INH (07:57)
[2024-01-27] MEDS: ZINC SULFATE 220 MG PO (08:45)
[2024-01-27] MEDS: LOPRESSOR 25 MG PO ×2 (08:45→20:39)
[2024-01-27] MEDS: MUCINEX 1200 MG PO ×2 (08:45→20:40)
[2024-01-27] MEDS: VITAMIN D3 (cholecalciferol) 50 MCG PO (08:45)
[2024-01-27] MEDS: ZOVIRAX 400 MG PO ×2 (08:45→20:39)
[2024-01-27] MEDS: VITAMIN C 500 MG PO (08:45)
[2024-01-27] MEDS: VISBIOME 1 CAP PO (08:45)
[2024-01-27] MEDS: NORVASC 5 MG PO (08:45)
[2024-01-27] MEDS: ATIVAN 0.5 MG PO ×2 (08:45→20:40)
[2024-01-27] MEDS: OSCAL CAL 500 500 MG PO (08:45)
--- NOTE | 2024-01-27 09:15 | W.PN.ID1 ---
Date of Service
Date of Service: January 27, 2024
Today's Communication
See below.
Assessment / Plan
# Hemoptysis persists
# Recurrent PNA x 4 since Jul 2023; most recent E. coli, currently on levofloxacin
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
# Hypogammaglobulinemia on IVIG q8 weeks
- 01/18/24 Sputum E. coli, scant mold
-07/30/18 Sputum x 2: Aspergillus fumigatus
- 01/10/[address] (at [facility]): new moderate RUL, RML opacities, mild LLL opacity
-01/27/[address] PE ([facility]) resolved R lung opacities; mild opacity DANIA/lingula
- Zanubrutinib increases hemorrhage, drug on hold.
- Follow sputum cx. pending
- At this time unclear if Aspergillus is playing a role in hemoptysis. He is nontoxic- appearing, oxygenating well, feels well. Per Pulm, CT unimpressive, ENT to assess upper airways.
- Unlikely invasive aspergillosis given relatively benign CT. Serum Aspergillus galactomannan assay and Fungitell are pending.
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 Total IgE, and Aspergillus-IgE pending.
-Continue levofloxacin for now.
#Additional Past Medical History:
CLL diagnosed 1999 2011 status post chemotherapy with recurrence in 2020, currently on Zanubrutinib since 05/2023 ([facility])
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
Hypertension
Chronic thrombocytopenia
Recurrent pneumonia
TIA
CAD status post CAB x 1
Bio-Aortic valve replacement
Appendectomy
Diverticulitis status post sigmoidectomy with colostomy with subsequent colostomy reversal
Chief Complaint
-: Other (Hemoptysis)
Subjective / Review of Systems
Had episode of copious hemoptysis last evening. Otherwise feels well.
Vital Signs / Physical Exam
Vital Signs
Vital Signs
Temp Pulse Resp BP Pulse Ox
97.5 F 86 18 135/71 91
01/27/24 07:21 01/27/24 08:45 01/27/24 08:45 01/27/24 08:00 01/27/24 08:45
Physical Exam
Constitutional: No Acute Distress, Comfortable and Non-toxic
Eyes: No Conjunctival Hemorrhage and Sclera Anicteric
Cardiovascular: Regular Rate and S1/S2
Pulmonary: Coarse (mild left base)
Gastrointestinal: Soft, Non Tender, Non Distended and Normal Bowel Sounds
Genito-Urinary: Negative CVA Tenderness
Extremities: Negative Edema
Neurological: AO x 3
Objective Data
Lab Data
Lab Results
01/27/24 03:48
01/27/24 03:48
ESR 13 mm/hour (0-20) 01/26/24 15:01
PT 14.2 Sec (11.4-14.6) 01/26/24 13:49
INR 1.12 01/26/24 13:49
APTT 27.3 Sec (23.4-35.0) 01/26/24 13:49
Estimated Creat Clear 79 ml/min 01/27/24 03:48
Lactic Acid Cancelled 01/26/24 12:45
Total Bilirubin 1.0 mg/dl (0.2-1.3) 01/26/24 08:59
AST 36 U/L (17-59) 01/26/24 08:59
ALT 30 U/L (0-50) 01/26/24 08:59
Alkaline Phosphatase 121 U/L (38-126) 01/26/24 08:59
C-Reactive Protein 6.60 mg/L (0.0-10.00) 01/26/24 15:01
Most recent labs reviewed.
Micro Results:
01/26/24 08:59 Blood Culture - Preliminary
Blood/Venous No Growth in 24 hours- Final report to follow
01/26/24 13:49 Blood Culture - Pending
Blood/Venous
01/26/24 09:45 Respiratory Culture - Pending
Sputum Gram Stain - Preliminary
01/26/24 CXR: No acute cardiopulmonary process. Resolved left basilar pneumonia.
01/26/24 CT chest PE protocol: parenchymal consolidation consistent with pneumonia seen previously in the right upper lobe has resolved. Intraluminal opacity in the posteromedial right lower lobe segmental/subsegmental bronchus, consistent with
mucous plugging. Mild Patchy airspace opacity is present in the anterior left upper lobe, consistent with pneumonia. There is also patchy airspace opacity in the superior segment of the left lower lobe and lingula. In the left lower lobe, patchy and
slightly more confluent airspace opacity is noted, consistent with pneumonia.
Care Review
Plan reviewed with: Physician (Dr. Cannon)
--- NOTE | 2024-01-27 09:16 | PTCARENOTE ---
Rec'd pt at 0700. Pt AAOx3, follows commands, DOTSON. Monitor SR. Lungs basilar sct coarse, pox 96% RA. No hemoptysis this am. +BS, abd soft/nt. Will start clear liquid diet today.
[2024-01-27] MEDS: LEVAQUIN 500 MG PO (11:39)
--- NOTE | 2024-01-27 12:49 | W.PN.HOSP.TC ---
Today's Communication/Plan
-
Follow closely in ICU
CW ABX
Follow HH
Assessment / Plan
Assessment / Plan
Acute large amount hemoptysis-mostly blood mixed with minimal phlegm. He is current hemodynamically stable and not hypoxic. Recent sputum cx data - EColi and mold .CT chest no PE,mild pneumonia, few small nodular opacities concerning for
inflammatory pathology.
Appt ID and pulm input
Ongoing eval for Aspergillus infection
CW Levaquin
Endoscopic eval per pulm
Hx of Asthma - no flare -cw home inhaler tx
Recurrent pneumonia-last 1 was a left lower lobe pneumonia currently on Levaquin for E. coli which was isolated in the sputum recently. Continue with Levaquin.
CLL on Zanubrutinib - pt with recurrent pneumonias - consulted [facility] for an input regarding further use of the medication. .Hold Zanubruitinib with recurrent infections and bleeding.CW Bactrim prophylaxis
HTN -CW meds
Full code.
Discussed with pulmonary
Anticipated Discharge: > 48 hours
Subjective/Interval History
-
Date of Service: January 27, 2024
No hemoptysis this morning.
Not SOB.
No CP.
No fever or chills.
Objective Data
-
Labs:
Laboratory Results
01/27/24
03:48
WBC 10.9 H
Hgb 13.4
Hct 38.3 L
Plt Count 142
Sodium 140
Potassium 4.2
Chloride 106
Carbon Dioxide 25
BUN 24 H
Creatinine 1.0
Glucose 130 H
Calcium 9.2
Vital Signs:
Vital Signs
Temp Pulse Resp BP Pulse Ox
97.4 F 75 15 120/73 96
01/27/24 11:15 01/27/24 10:45 01/27/24 10:45 01/27/24 10:00 01/27/24 10:45
I&O
01/26/24 01/27/24 01/28/24
06:59 06:59 06:59
Intake Total 240 / 240
Output Total 1550 / 1550
Balance -1310 / -1310
Review of Systems
-
Constitutional: Denies Fever
EENT: Denies Sore Throat
Abdomen/GI: Denies Abdominal Pain, Nausea or Vomiting
Neuro: Denies Dizzy
Physical Exam
-
General: No Apparent Distress
HEENT: Moist Mucous Membranes
Respiratory: Crackles (in left base); Negative Wheezes
Cardiac: Regular Rhythm and S1/S2
GI: Soft
Neuro: AO x 3
Data Reviewed
-
CT Scan: Report Reviewed by me (ct chest)
Labs: Labs Reviewed by me
[2024-01-27] MEDS: LIPITOR 40 MG PO (17:06)
[2024-01-27] MEDS: ZETIA 10 MG PO (17:07)
[2024-01-27] MEDS: FLOMAX 0.400000000000000022 MG PO (17:07)
--- NOTE | 2024-01-27 17:23 | PTCARENOTE ---
Pt occas bringing up bloody sputum with moist cough, quantifying <10ml throughout entire shift. Pt sitting up eating dinner at this time.
--- NOTE | 2024-01-27 20:30 | PTCARENOTE ---
Pt Aox3, VSS, NSR on monitor, denies pain. Lungs are clear on room air sats 91-95%. Pt continues with small amount of bloody sputum.
--- NOTE | 2024-01-27 22:29 | W.PN.ONC2 ---
Today's Communication / Plan
-
Holding Brukinsa. Discussed possibility of a change in regimen with frequent infections despite IVIg, and now bleeding.
Supportive care.
Impression
Impression
- CLL
- acquired hypogammaglobulinemia
- recurrent respiratory infections
- hemoptysis
Plan
Plan
# Recurrent respiratory infections, hemoptysis
- pt with 4 respiratory infections over 6 months that appear to respond to abx then return. He presented to ED due to hemoptysis.
- pt has a hx of acquired hypogammaglobulinemia for which he receives IVIG every ~ 8 weeks, last received 5 weeks ago. Will check IgG and if < 400 then may require increased freq of IVIG in office.
# Hemoptysis
- ok to hold Brukinsa in setting of reported hemoptysis. resume once this is confirmed resolved.
- sed rate unremarkable.
- p-ANCA, c-ANCA to rule out a vasculitis.
Brukinsa associated with frequent infection as well as bleeding.
Subjective/Objective
Chief Complaint
Heme/Onc follow up of CLL, hemoptysis
Subjective
Reports less hemoptysis. Brukinsa held currently. Recent E. coli pna.
Vital Signs:
Vital Signs
Temp Pulse Resp BP Pulse Ox
97.7 F 79 22 131/80 93
01/27/24 19:43 01/27/24 21:00 01/27/24 21:00 01/27/24 21:00 01/27/24 21:00
Lab Results:
Laboratory Data
WBC 10.9 10^3/uL (4.8-10.8) H 01/27/24 03:48
Hgb 13.4 g/dL (13.0-18.0) 01/27/24 03:48
Plt Count 142 10^3/uL (130-400) 01/27/24 03:48
PT 14.2 Sec (11.4-14.6) 01/26/24 13:49
INR 1.12 01/26/24 13:49
APTT 27.3 Sec (23.4-35.0) 01/26/24 13:49
eGFR > 60.00 01/27/24 03:48
Physical Exam
HEENT: Moist Mucous Membranes; No Jaundice
Cardiology: Normal Sinus Rhythm, S1 and S2
Pulmonary: Wheezes (cleared with cough)
GI: Soft and Normal Bowel Sounds
Extremities: Pulses Present; No Phlebitic Signs
Neuro: Non Focal
[2024-01-28] VITALS (19 sets, daily range): BP systolic 91–132; BP diastolic 46–95; BMI 23.2
--- NOTE | 2024-01-28 00:30 | PTCARENOTE ---
Pt reassessed and assessment unchanged, he received TXA nebulizer.
[2024-01-28 04:36] LABS: Hematocrit 37.9 % (39.0-52.0); Mean Corp Hgb Conc. 34.3 g/dL (33.0-37.0); Mean Corpuscular Hgb 30.1 pg (27.0-31.0); Mean Corpuscular Volume 87.7 fL (80.0-94.0); Mean Platelet Volume 11.6 fL (7.4-10.4); Platelet Count 112 10^3/uL (130-400); Red Blood Cell Count 4.32 10^6/uL (4.70-6.10); Red Cell Dist. Width 13.1 % (11.5-14.5); White Blood Cell Count 8.4 10^3/uL (4.8-10.8)
[2024-01-28] MEDS: SYNTHROID 75 MCG PO (06:13)
[2024-01-28 07:06] LABS: Blood Urea Nitrogen 23 mg/dl (9-20); Calcium 8.5 mg/dl (8.4-10.2); Carbon Dioxide 25 mmol/L (22-30); Chloride 108 mmol/L (98-107); Estimated Creatinine Clearance 87 ml/min; Glucose 115 mg/dl (70-99); Potassium 3.7 mmol/L (3.5-5.1); Sodium 138 mmol/L (135-145); eGFR > 60.00
--- NOTE | 2024-01-28 07:18 | W.PN.INTV ---
Today's Communication / Plan
Recommendations
Doing well today, hemoptysis greatly improving, only ~20cc in past 24 hours
Continue supportive care, abx
Can likely hold off on procedures at this point
Quantify another 24 hours
Will advance diet
Can likely transfer to floors today as well
Assessment
-
68-year-old male with complex medical history including CLL on chronic Zanubrutinib, history of recurrent pneumonia recently identified as having E. coli, started on Levaquin therapy 3 days ago with subjective improvement. Now presents with
hemoptysis. We are asked to help from pulmonary standpoint 01/25
Acute hemoptysis, 100-150cc--improving
Right upper lobe pneumonia
E. coli per culture (01/18/2024 R to ampicillin/cefazolin/gentamicin/tetracycline/Bactrim)
Scant mold growth
Status post Augmentin/doxycycline, switched to Levaquin with improvement
History of recurrent pneumonia, 4 times in 2023
Hypogammaglobulinemia, on IVIG
Conditions present prior to admission
Hypertension/hyperlipidemia
History of CLL, IVIG [id number] ([facility])
chronic Zanubrutinib ([facility])
History of sleep apnea, not using CPAP
S/p aortic valve replacement, CAB x 2018
Hypothyroidism
History of thyroid cancer status post thyroidectomy
History of hepatitis A
Diverticulitis status post sigmoidectomy with colostomy 2020
Colostomy reversal 2021
Family history of CLL
Plan
At this time, he is stable on RA
Hemoptysis ongoing, about 120cc total on day of admission
He now is improving, only 20cc made in last 24 hours
Will observe next 24 hours
Hb stable
Salient features include recurrent pneumonia, recent CT chest 01/10/2024 with extensive right upper lobe consolidation, recent culture positive for E. coli with heavy growth started on Levaquin therapy with subjective improvement. There was also
scant mold growth
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
He has had recurrent pneumonias over the past 6 months with frequent antibiotic course
ID following for abx regiment
I personally reviewed all of his films. CT chest from 01/09 which showed extensive right upper lobe consolidation
Fortunately, his current x-ray appears to be improved, per my review
Repeat CT showing no significant parenchymal disease on R, speckled appearance on L
Hb stable
Continue to hold Plavix/aspirin for now
Advance diet to clears
Nebs PRN, inhalers
Follow CBC
Bronchoscopy may be indicated but for now we will hold off.
If hemoptysis is improving, no intervention may be needed
Can quantify another 24 hours to determine direction
Would hold Zanubrutinib for now given risk for hemorrhage
Consider Heme/Onc to follow (Known to [facility])
-----
Critical Care time 31 mins -- The patient is admitted for acute critical illness for the treatment of vital organ failure and/or prevention of further life-threatening conditions. Total care includes time spent in review of history, physical exam,
medications, hemodynamic/ventilator parameters, laboratory data, imaging and discussion with house staff, pharmacy, respiratory therapy, lopper, and nursing.
Subjective Dataa
Subjective Data
Date of Service:
Date of Service: January 28, 2024
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
Subjective:
better this AM, hemoptysis improving, about 20cc total past 24 hours
no new complaints
stable on RA
Objective Data
Data Reviewed
Vital Signs / I&O / Oxygen:
Vital Signs
Temp Pulse Resp BP Pulse Ox
98.5 F 74 16 108/71 90
01/28/24 03:51 01/28/24 05:00 01/28/24 05:00 01/28/24 05:00 01/28/24 05:00
Intake and Output
01/27/24 01/28/24 01/29/24
06:59 06:59 06:59
Intake Total 240 / 240 600 / 600
Output Total 1550 / 1550 850 / 850
Balance -1310 / -1310 -250 / -250
SaO2 90
Nasal Cannula flow liters per 93
minute
Physical Exam
General: Comfortable and Other (NAD)
HEENT: Normocephalic, Anicteric and Moist Mucous Membranes
Cardiovascular: S1-S2 and Regular Rhythm
Respiratory: Clear and Non-Labored Respirations
GI: Soft, Non Distended and Non Tender
Neurology: Awake, Alert, Oriented, AO x 3 and No Motor Deficits
Skin: Warm, Dry and Good Color
Labs/Micro/Reports
Lab Data
01/28/24 04:17
01/28/24 06:18
Microbiology
01/26/24 13:49 Blood/Venous Blood Culture - Preliminary
No Growth in 24 hours- Final report to follow
01/26/24 09:45 Sputum Respiratory Culture - Preliminary
Mold
01/26/24 09:45 Sputum Gram Stain - Preliminary
01/26/24 08:59 Blood/Venous Blood Culture - Preliminary
No Growth in 24 hours- Final report to follow
--- NOTE | 2024-01-28 07:29 | W.PN.HOSP.TC ---
Today's Communication/Plan
-
see A/P
Assessment / Plan
Assessment / Plan
A/P:
# Acute large amount hemoptysis-mostly blood mixed with minimal phlegm.
# Recurrent PNA x 4 since Jul 2023; most recently isolated E. coli, currently on levofloxacin
He is current hemodynamically stable and not hypoxic. 97% on RA on my exam.
Recent sputum cx data noted mold.
CT chest no PE, mild pneumonia, few small nodular opacities concerning for inflammatory pathology.
Appt ID and pulm input
Ongoing eval for Aspergillus infection
c/w Levaquin
Endoscopic eval per pulm
# Hx of Asthma - no flare- cw home inhaler tx
# CLL on Zanubrutinib
# acquired hypogammaglobulinemia, he receives IVIG every ~ 8 weeks, last received 5 weeks ago.
pt with recurrent pneumonias, Heme on board for input regarding further use of the medication. Hold Zanubruitinib with recurrent infections and bleeding. CW Bactrim prophylaxis
p-ANCA, c-ANCA to rule out a vasculitis.
# HTN- CW meds
Full code.
Anticipated Discharge: > 48 hours
Subjective/Interval History
-
Date of Service: January 28, 2024
Objective Data
-
Labs:
Laboratory Results
01/28/24 01/28/24
04:17 06:18
WBC 8.4
Hgb 13.0
Hct 37.9 L
Plt Count 112 L D
Sodium 138
Potassium 3.7
Chloride 108 H
Carbon Dioxide 25
BUN 23 H
Creatinine 0.9
Glucose 115 H
Calcium 8.5
Vital Signs:
Vital Signs
Temp Pulse Resp BP Pulse Ox
36.9 C 74 16 108/71 90
01/28/24 03:51 01/28/24 05:00 01/28/24 05:00 01/28/24 05:00 01/28/24 05:00
I&O
01/27/24 01/28/24 01/29/24
06:59 06:59 06:59
Intake Total 240 / 240 600 / 600
Output Total 1550 / 1550 850 / 850
Balance -1310 / -1310 -250 / -250
Review of Systems
-
Respiratory: Reports Hemoptysis; Denies Trouble Breathing
Physical Exam
-
General: Well Developed, Well Nourished, No Apparent Distress and Comfortable
Respiratory: Crackles (in left base) and Non Labored Respirations; Negative Wheezes or Accessory Resp Muscle Use
Cardiac: Regular Rhythm and S1/S2
GI: Soft, Nondistended and Normal Bowel Sounds
Neuro: Awake, Alert and AO x 3
Psych: Calm and Intact Judgement/Insight
Data Reviewed
-
Labs: Labs Reviewed by me
[2024-01-28] MEDS: TRANEXAMIC ACID 500 MG INH ×3 (07:36→23:36)
[2024-01-28] MEDS: VENTOLIN NEBULES 2.5 MG INH ×2 (07:36→19:39)
[2024-01-28] MEDS: NON-FORMULARY ITEM 1 INH INH (07:37)
[2024-01-28] MEDS: NORVASC 5 MG PO (07:58)
[2024-01-28] MEDS: VITAMIN C 500 MG PO (07:59)
[2024-01-28] MEDS: ATIVAN 0.5 MG PO ×2 (07:59→19:42)
[2024-01-28] MEDS: OSCAL CAL 500 500 MG PO (07:59)
[2024-01-28] MEDS: MUCINEX 1200 MG PO ×2 (07:59→19:43)
[2024-01-28] MEDS: LOPRESSOR 25 MG PO ×2 (07:59→19:42)
[2024-01-28] MEDS: VISBIOME 1 CAP PO (07:59)
[2024-01-28] MEDS: ZINC SULFATE 220 MG PO (07:59)
[2024-01-28] MEDS: VITAMIN D3 (cholecalciferol) 50 MCG PO (07:59)
[2024-01-28] MEDS: ZOVIRAX 400 MG PO ×2 (07:59→19:42)
--- NOTE | 2024-01-28 08:42 | W.PN.ID1 ---
Date of Service
Date of Service: January 28, 2024
Today's Communication
Observing without antifungal.
Assessment / Plan
# Hemoptysis decreasing
# Recurrent PNA x 4 since Jul 2023; most recent E. coli, currently on levofloxacin
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
# Hypogammaglobulinemia on IVIG q8 weeks
- 01/18/24 Sputum E. coli, scant mold
-07/30/18 Sputum x 2: Aspergillus fumigatus
- 01/10/[address] (at [place]): new moderate RUL, RML opacities, mild LLL opacity
-01/27/[address] PE ([facility]) resolved R lung opacities; mild opacity DANIA/lingula
- Zanubrutinib increases risk of hemorrhage, drug on hold.
- Sputum cx: few Mold - asked micro to identify
- At this time unclear if Aspergillus is playing a role in hemoptysis. He is nontoxic- appearing, oxygenating well, feels well. Per Pulm, CT unimpressive, ENT to assess upper airways.
- Unlikely invasive aspergillosis given relatively benign CT. Serum Aspergillus galactomannan assay and Fungitell are pending.
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 Total IgE, and Aspergillus-IgE pending.
-Continue levofloxacin for now.
#Additional Past Medical History:
CLL diagnosed 2011 status post chemotherapy with recurrence in 2020, currently on Zanubrutinib since 05/2023 ([facility])
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
Hypertension
Chronic thrombocytopenia
Recurrent pneumonia
TIA
CAD status post CAB x 1
Bio-Aortic valve replacement
Appendectomy
Diverticulitis status post sigmoidectomy with colostomy with subsequent colostomy reversal
Chief Complaint
-: Other (Hemoptysis)
Subjective / Review of Systems
Hemoptysis decreasing
Vital Signs / Physical Exam
Vital Signs
Vital Signs
Temp Pulse Resp BP Pulse Ox
97.3 F 73 20 129/76 95
01/28/24 07:38 01/28/24 08:30 01/28/24 08:30 01/28/24 08:00 01/28/24 08:30
Physical Exam
Constitutional: No Acute Distress and Comfortable
Cardiovascular: Regular Rate and S1/S2
Pulmonary: Coarse (left base)
Gastrointestinal: Soft, Non Tender and Non Distended
Extremities: Negative Edema
Neurological: AO x 3
Objective Data
Lab Data
Lab Results
01/28/24 04:17
01/28/24 06:18
ESR 13 mm/hour (0-20) 01/26/24 15:01
PT 14.2 Sec (11.4-14.6) 01/26/24 13:49
INR 1.12 01/26/24 13:49
APTT 27.3 Sec (23.4-35.0) 01/26/24 13:49
Estimated Creat Clear 87 ml/min 01/28/24 06:18
Lactic Acid Cancelled 01/26/24 12:45
Total Bilirubin 1.0 mg/dl (0.2-1.3) 01/26/24 08:59
AST 36 U/L (17-59) 01/26/24 08:59
ALT 30 U/L (0-50) 01/26/24 08:59
Alkaline Phosphatase 121 U/L (38-126) 01/26/24 08:59
C-Reactive Protein 6.60 mg/L (0.0-10.00) 01/26/24 15:01
Most recent labs reviewed.
Micro Results:
01/26/24 13:49 Blood Culture - Preliminary
Blood/Venous No Growth in 24 hours- Final report to follow
01/26/24 09:45 Respiratory Culture - Preliminary
Sputum Mold
Gram Stain - Preliminary
01/26/24 08:59 Blood Culture - Preliminary
Blood/Venous No Growth in 24 hours- Final report to follow
01/26/24 CXR: No acute cardiopulmonary process. Resolved left basilar pneumonia.
01/26/24 CT chest PE protocol: parenchymal consolidation consistent with pneumonia seen previously in the right upper lobe has resolved. Intraluminal opacity in the posteromedial right lower lobe segmental/subsegmental bronchus, consistent with
mucous plugging. Mild Patchy airspace opacity is present in the anterior left upper lobe, consistent with pneumonia. There is also patchy airspace opacity in the superior segment of the left lower lobe and lingula. In the left lower lobe, patchy and
slightly more confluent airspace opacity is noted, consistent with pneumonia.
--- NOTE | 2024-01-28 11:05 | PTCARENOTE ---
Rec'd pt at 0700. Pt AAOx3, follows commands, [place]. Monitor SR. Lungs sct coarse/rales left posteriorly, pox 94% RA. Occas moist cough, scant amt bloody sputum, quantifying at bedside in specimen cup. +BS, abd soft/nt. Advanced to reg diet, ate 100%
breakfast. Vdg benji urine via urinal. For transfer to IMU.
[2024-01-28] MEDS: LEVAQUIN 500 MG PO (12:11)
[2024-01-28] MEDS: FLOMAX 0.400000000000000022 MG PO (17:07)
[2024-01-28] MEDS: ZETIA 10 MG PO (17:07)
[2024-01-28] MEDS: LIPITOR 40 MG PO (17:07)
--- NOTE | 2024-01-28 17:22 | PTCARENOTE ---
Pt sitting OOB in chair throughout afternoon, back in bed at this time. No changes in assessment.
--- NOTE | 2024-01-28 20:00 | PTCARENOTE ---
Rec'd pt resting in bed, amb ad bijan to bathroom , denies pain, SR w/ occas PVC's, bp stable, + pulses, skin warm/dry, RA, lungs w/ crackles 1/4 up Left, sat 95, sm amt dark red/maroon sputum- cup at bedside to quantify, + bowel sounds, no bm, abd
soft, no n/v, blanche diet, voids in bathroom
[2024-01-28 22:40] LABS: IgE 3301 kU/L (<=214)
[2024-01-28 23:43] LABS: IgG 502 mg/dl (700-1600)
[2024-01-29] VITALS (11 sets, daily range): BP systolic 100–133; BP diastolic 58–80; BMI 23.7
--- NOTE | 2024-01-29 00:12 | PTCARENOTE ---
sys reviewed, changes noted
[2024-01-29 01:13] LABS: Myeloperoxidase Antibody 0 AU/mL (0-19); Serine Protease-3, IgG 0 AU/mL (0-19)
--- NOTE | 2024-01-29 04:03 | PTCARENOTE ---
sys reviewed, changes noted
[2024-01-29 04:21] LABS: % Basophils 1.1 % (0-2); % Eosinophils 12.5 % (0-6); % Immature Granulocytes 1.4 % (0-0.5); % Lymphocytes 25.7 % (20.5-51.1); % Monocytes 7.2 % (1.7-9.3); % Neutrophils 52.1 % (42.2-75.2); Absolute Basophils 0.1 10^3/uL (0-0.2); Absolute Eosinophils 1.2 10^3/uL (0-0.7); Absolute Immature Granulocytes 0.1 10^3/uL (0-0.05); Absolute Lymphocytes 2.4 10^3/uL (1.2-3.4); Absolute Monocytes 0.7 10^3/uL (0.1-0.6); Absolute Neutrophils 4.8 10^3/uL (1.4-6.5); Hematocrit 37.1 % (39.0-52.0); Hemoglobin 12.9 g/dL (13.0-18.0); Mean Corp Hgb Conc. 34.8 g/dL (33.0-37.0); Mean Corpuscular Hgb 29.7 pg (27.0-31.0); Mean Corpuscular Volume 85.3 fL (80.0-94.0); Mean Platelet Volume 11.7 fL (7.4-10.4); Nucleated Red Blood Cells % 0 % (-); Platelet Count 115 10^3/uL (130-400); Red Blood Cell Count 4.35 10^6/uL (4.70-6.10); Red Cell Dist. Width 13.1 % (11.5-14.5); White Blood Cell Count 9.2 10^3/uL (4.8-10.8)
[2024-01-29 04:35] LABS: Blood Urea Nitrogen 28 mg/dl (9-20); Calcium 8.7 mg/dl (8.4-10.2); Carbon Dioxide 22 mmol/L (22-30); Chloride 109 mmol/L (98-107); Estimated Creatinine Clearance 88 ml/min; Glucose 119 mg/dl (70-99); Magnesium 2.2 mg/dl (1.6-2.3); Potassium 4.2 mmol/L (3.5-5.1); Sodium 140 mmol/L (135-145); eGFR > 60.00
[2024-01-29] MEDS: SYNTHROID 75 MCG PO (05:52)
--- NOTE | 2024-01-29 06:43 | W.PN.INTV ---
Today's Communication / Plan
Recommendations
Out of bed to chair, ambulate
Continue to quantify hemoptysis
No indication for bronchoscopy at this time
Continue to hold Zanubrutinib, Aspirin
Continue Levaquin
Okay for transfer out of ICU. Pulmonary will continue to follow
Assessment
-
68-year-old male with complex medical history including CLL on chronic Zanubrutinib, history of recurrent pneumonia recently identified as having E. coli, started on Levaquin therapy 3 days ago with subjective improvement. Now presents with
hemoptysis. We are asked to help from pulmonary standpoint 01/25
Acute hemoptysis, 100-150cc--improving
Right upper lobe pneumonia
E. coli per culture (01/18/2024 R to ampicillin/cefazolin/gentamicin/tetracycline/Bactrim)
Scant mold growth
Status post Augmentin/doxycycline, switched to Levaquin with improvement
History of recurrent pneumonia, 4 times in 2023
Hypogammaglobulinemia, on IVIG
Eosinophilia, elevated IgE
(ANCA neg)
Conditions present prior to admission
Hypertension/hyperlipidemia
History of CLL, IVIG [id number] ([place])
chronic Zanubrutinib ([place])
History of sleep apnea, not using CPAP
S/p aortic valve replacement, CAB x 2018
Hypothyroidism
History of thyroid cancer status post thyroidectomy
History of hepatitis A
Diverticulitis status post sigmoidectomy with colostomy 2020
Colostomy reversal 2021
Family history of CLL
Plan/recommendations
At this time, he is stable on RA
Minimal hemoptysis over the last 36 hours
Hb stable
Salient features include recurrent pneumonia, recent CT chest 01/10/2024 with extensive right upper lobe consolidation, recent culture positive for E. coli with heavy growth started on Levaquin therapy with subjective improvement. There was also
scant mold growth
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
He has had recurrent pneumonias over the past 6 months with frequent antibiotic course
ID following for abx regiment. Remains on oral Levaquin
I personally reviewed all of his films. CT chest from 01/09 which showed extensive right upper lobe consolidation
Fortunately, his current x-ray appears to be improved, per my review
Repeat CT showing no significant parenchymal disease on R, speckled appearance on L
Suspect mucous plugging, aspirated blood
Hb stable
Continue to hold Plavix/aspirin for now
Continue diet
Discontinue nebs
Follow CBC
Out of bed to chair, ambulate
Bronchoscopy may be indicated but for now we will hold off.
If hemoptysis is improving, no intervention may be needed
Can quantify another 24 hours to determine direction
Hope for possible disposition in the next 24 hours
I would recommend bronchoscopy sometime in the next 4 weeks for endobronchial inspection given extent of hemoptysis
Elevated IgE, eosinophilia noted
Check Aspergillus specific IgE
Would hold Zanubrutinib for now given risk for hemorrhage
Oncology following
Subjective Dataa
Subjective Data
Date of Service:
Date of Service: January 29, 2024
Chief Complaint: Denitrator Follow Up
Subjective:
Patient is feeling well. Denies chest pain, lightheadedness, dizziness, nausea. Has mild cough. Hemoptysis improved significantly over the last 36 hours. Without any other complaints
Objective Data
Data Reviewed
Vital Signs / I&O / Oxygen:
Vital Signs
Temp Pulse Resp BP Pulse Ox
97.1 F 85 21 100/58 96
01/29/24 03:35 01/29/24 05:00 01/29/24 05:00 01/29/24 04:02 01/29/24 05:00
Intake and Output
01/27/24 01/28/24 01/29/24
06:59 06:59 06:59
Intake Total 240 / 240 600 / 600 560 / 560
Output Total 1550 / 1550 850 / 850 800 / 800
Balance -1310 / -1310 -250 / -250 -240 / -240
SaO2 96
Nasal Cannula flow liters per 93
minute
Physical Exam
General: Comfortable and Other (NAD)
HEENT: Normocephalic, Anicteric and Moist Mucous Membranes
Cardiovascular: S1-S2, Regular Rhythm, Murmur (n) and Rub (n)
Respiratory: Wheeze (n), Crackles (Few at base), Non-Labored Respirations and Stridor (n)
GI: Soft, Non Distended and Non Tender
Neurology: Awake, Alert and No Motor Deficits
Skin: Good Color, Cyanosis (n), Jaundice (n) and Rash (n)
Labs/Micro/Reports
Lab Data
01/29/24 03:58
01/29/24 03:58
Microbiology
01/26/24 13:49 Blood/Venous Blood Culture - Preliminary
No Growth in 48 hours- Final report to follow
01/26/24 09:45 Sputum Respiratory Culture - Final
Mold
01/26/24 09:45 Sputum Gram Stain - Final
01/26/24 08:59 Blood/Venous Blood Culture - Preliminary
No Growth in 48 hours- Final report to follow
[2024-01-29] MEDS: VENTOLIN NEBULES 2.5 MG INH (07:42)
[2024-01-29] MEDS: NON-FORMULARY ITEM 1 INH INH (07:42)
[2024-01-29] MEDS: TRANEXAMIC ACID 500 MG INH (07:45)
[2024-01-29] MEDS: ATIVAN 0.5 MG PO ×2 (08:32→20:44)
[2024-01-29] MEDS: BACTRIM DS 800 MG/160 MG 1 TABLET PO (08:32)
[2024-01-29] MEDS: VITAMIN C 500 MG PO (08:32)
[2024-01-29] MEDS: LOPRESSOR 25 MG PO ×2 (08:32→20:42)
[2024-01-29] MEDS: VISBIOME 1 CAP PO (08:32)
[2024-01-29] MEDS: OSCAL CAL 500 500 MG PO (08:32)
[2024-01-29] MEDS: ZINC SULFATE 220 MG PO (08:32)
[2024-01-29] MEDS: ZOVIRAX 400 MG PO ×2 (08:32→20:43)
[2024-01-29] MEDS: MUCINEX 1200 MG PO ×2 (08:32→20:41)
[2024-01-29] MEDS: NORVASC 5 MG PO (08:32)
[2024-01-29] MEDS: VITAMIN D3 (cholecalciferol) 50 MCG PO (08:32)
--- NOTE | 2024-01-29 09:00 | PTCARENOTE ---
Received pt @ change of shift. AAOx3, denies pain. SR monitor. SpO2 98% on RA. Hemoptysis improving, occasion productive cough w brown/old bloody secretions. Dr. Paredes to bedside this AM aware; eventual plan for outpt. bronchoscopy. +BS, abd
soft/nt, + aubree. Cont b/b. Stand by assisted into chair, steady gait. Instructed on how to report care concerns and call jolly w in reach.
--- NOTE | 2024-01-29 10:15 | W.PN.ID1 ---
Date of Service
Date of Service: January 29, 2024
Today's Communication
See below.
Assessment / Plan
# Hemoptysis decreasing
# Recurrent PNA x 4 since Jul 2023; most recent E. coli, currently on levofloxacin
# Recurrent CLL on Zanubrutinib since 05/2023 ([facility]), prophylactic acyclovir and Bactrim 3x/wk
# Hypogammaglobulinemia on IVIG q8 weeks
- 01/18/24 Sputum E. coli, scant mold
-07/30/18 Sputum x 2: Aspergillus fumigatus
- 01/10/[address] (at [facility] [facility]): new moderate RUL, RML opacities, mild LLL opacity
-01/27/[address] PE ([facility]) resolved R lung opacities; mild opacity DANIA/lingula
- Zanubrutinib increases risk of hemorrhage, drug on hold.
- Sputum cx: few Mold - asked micro to identify
- At this time unclear if Aspergillus is playing a role in hemoptysis. He is nontoxic- appearing, oxygenating well, feels well. Per Pulm, CT unimpressive, ENT to assess upper airways.
- Unlikely invasive aspergillosis given relatively benign CT. Serum Aspergillus galactomannan assay and Fungitell are pending.
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
Total IgE >3301
Aspergillus-IgE pending. If positive, tx is steroid taper 2-3months and itraconazole x 3-6months.
-Consider dc levofloxacin (d7)
#Additional Past Medical History:
CLL diagnosed 2011 status post chemotherapy with recurrence in 2020, currently on Zanubrutinib since 05/2023 ([facility])
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
Hypertension
Chronic thrombocytopenia
Recurrent pneumonia
TIA
CAD status post CAB x 1
Bio-Aortic valve replacement
Appendectomy
Diverticulitis status post sigmoidectomy with colostomy with subsequent colostomy reversal
Chief Complaint
-: Other (Hemoptysis)
Subjective / Review of Systems
Hemoptysis is scant.
Vital Signs / Physical Exam
Vital Signs
Vital Signs
Temp Pulse Resp BP Pulse Ox
97.7 F 83 16 128/77 98
01/29/24 08:21 01/29/24 08:32 01/29/24 07:49 01/29/24 08:32 01/29/24 07:49
Physical Exam
Constitutional: No Acute Distress and Comfortable
Pulmonary: Clear
Gastrointestinal: Soft, Non Tender and Non Distended
Extremities: Negative Edema
Neurological: AO x 3
Objective Data
Lab Data
Lab Results
01/29/24 03:58
01/29/24 03:58
ESR 13 mm/hour (0-20) 01/26/24 15:01
PT 14.2 Sec (11.4-14.6) 01/26/24 13:49
INR 1.12 01/26/24 13:49
APTT 27.3 Sec (23.4-35.0) 01/26/24 13:49
Estimated Creat Clear 88 ml/min 01/29/24 03:58
Lactic Acid Cancelled 01/26/24 12:45
Total Bilirubin 1.0 mg/dl (0.2-1.3) 01/26/24 08:59
AST 36 U/L (17-59) 01/26/24 08:59
ALT 30 U/L (0-50) 01/26/24 08:59
Alkaline Phosphatase 121 U/L (38-126) 01/26/24 08:59
C-Reactive Protein 6.60 mg/L (0.0-10.00) 01/26/24 15:01
Most recent labs reviewed.
Micro Results:
01/26/24 08:59 Blood Culture - Preliminary
Blood/Venous No Growth in 72 hours- Final report to follow
01/26/24 13:49 Blood Culture - Preliminary
Blood/Venous No Growth in 48 hours- Final report to follow
01/26/24 09:45 Fungus Mold Identification - Pending
Sputum
01/26/24 09:45 Respiratory Culture - Final
Sputum Mold
Gram Stain - Final
01/26/24 CXR: No acute cardiopulmonary process. Resolved left basilar pneumonia.
01/26/24 CT chest PE protocol: parenchymal consolidation consistent with pneumonia seen previously in the right upper lobe has resolved. Intraluminal opacity in the posteromedial right lower lobe segmental/subsegmental bronchus, consistent with
mucous plugging. Mild Patchy airspace opacity is present in the anterior left upper lobe, consistent with pneumonia. There is also patchy airspace opacity in the superior segment of the left lower lobe and lingula. In the left lower lobe, patchy and
slightly more confluent airspace opacity is noted, consistent with pneumonia.
Care Review
Plan reviewed with: Physician (Dr. Paredes)
--- NOTE | 2024-01-29 10:59 | PTCARENOTE ---
Report given to 4E RN and pt. transferred via wheel chair to 413-[id number] 02 on mat making machine tender and belongings. No further needs from this RN.
--- NOTE | 2024-01-29 11:47 | PTCARENOTE ---
Recieved pt form ICU. AAOx3, VVS WNL. Oriented to unit. Plan of care is ongoing.
--- NOTE | 2024-01-29 11:53 | CM ---
CM following re: discharge planning.
Reviewed pt's chart, met with pt.
Pt is a 68 year old male, admitted with primary dx of Hemoptysis. Per MD pt is doing better and probably will be discharged denice may tomorrow. Pt is aware, expressed his agreement. IMM reviewed, placed on chart, pt has a copy.
Pt reports he lives with spouse in a 2SH, 1 step o enter, has 4 supportive children. 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
PCP: Irwin Urrutia
Pharmacy: [facility].
D/C plan: home with anticipated no needs. Family to transport at discharge.
CM will follow with discharge plan updates as needed.
[2024-01-29] MEDS: LEVAQUIN 500 MG PO (13:13)
--- NOTE | 2024-01-29 16:06 | W.PN.HOSP.TC ---
Today's Communication/Plan
-
Minimal hemoptysis. Continue to monitor
On room air.
Continue Levaquin
Physical therapy assessment
Discharge planning.
Assessment / Plan
Assessment / Plan
A/P:
# Acute large amount hemoptysis-mostly blood mixed with minimal phlegm.
# Recurrent PNA x 4 since Jul 2023; most recently isolated E. coli, currently on levofloxacin
He is current hemodynamically stable and not hypoxic. 97% on RA on my exam.
Recent sputum cx data noted mold.
CT chest no PE, mild pneumonia, few small nodular opacities concerning for inflammatory pathology.
Appt ID and pulm input
Ongoing eval for Aspergillus infection
c/w Levaquin
Endoscopic eval per pulm
# Hx of Asthma - no flare- cw home inhaler tx
# CLL on Zanubrutinib
# acquired hypogammaglobulinemia, he receives IVIG every ~ 8 weeks, last received 5 weeks ago.
pt with recurrent pneumonias, Heme on board for input regarding further use of the medication. Hold Zanubruitinib with recurrent infections and bleeding. CW Bactrim prophylaxis
p-ANCA, c-ANCA to rule out a vasculitis.
# HTN- CW meds
Full code.
Anticipated Discharge: 24 - 48 hours
Subjective/Interval History
-
Date of Service: January 29, 2024
Objective Data
-
Labs:
Laboratory Results
01/29/24
03:58
WBC 9.2
Hgb 12.9 L
Hct 37.1 L
Plt Count 115 L
Sodium 140
Potassium 4.2
Chloride 109 H
Carbon Dioxide 22
BUN 28 H
Creatinine 0.9
Glucose 119 H
Calcium 8.7
Vital Signs:
Vital Signs
Temp Pulse Resp BP Pulse Ox
97.8 F 85 20 127/76 98
01/29/24 11:47 01/29/24 11:47 01/29/24 11:47 01/29/24 11:47 01/29/24 11:47
I&O
01/28/24 01/29/24 01/30/24
06:59 06:59 06:59
Intake Total 600 / 600 560 / 560 360 / 360
Output Total 850 / 850 800 / 800 200 / 200
Balance -250 / -250 -240 / -240 160 / 160
Physical Exam
-
General: Well Developed and No Apparent Distress
HEENT: Normocephalic, Atraumatic and Moist Mucous Membranes
Respiratory: Clear to Auscultation
Cardiac: Regular Rhythm and S1/S2; Negative Murmur, Rub or Gallop
GI: Soft, Nontender, Nondistended and Normal Bowel Sounds; Negative Organomegaly
Rectal: Deferred by Provider
Musculoskeletal: No Clubbing, No Cyanosis and No Edema
Skin: Negative Rash
Neuro: Nonfocal/Grossly Intact
--- NOTE | 2024-01-29 16:17 | W.PN.ONC2 ---
Today's Communication / Plan
-
Continue to hold Brukinsa until hemoptysis resolves.
Impression
Impression
- CLL
- acquired hypogammaglobulinemia
- recurrent respiratory infections
- hemoptysis
Plan
Plan
# Recurrent respiratory infections, hemoptysis
- pt with 4 respiratory infections over 6 months that appear to respond to abx then return. He presented to ED due to hemoptysis.
- pt has a hx of acquired hypogammaglobulinemia for which he receives IVIG every ~ 8 weeks, last received 5 weeks ago. IgG 502 from 01/25, okay to continue on Q8w schedule
# Hemoptysis
- ok to hold Brukinsa in setting of reported hemoptysis. resume once this is confirmed resolved.
- sed rate unremarkable.
- vasculitis serologies from 01/25 are negative.
IgE noted to be 3301.
Brukinsa associated with frequent infection as well as bleeding; however, pt states he has been reassured by his outpt physicians that the frequent infections are not related to Brukinsa.
Unclear whether aspergillosis is present and how much it may be contributing to hemoptysis, recurrent lung infection. W/u ongoing, Pulmonary and ID following.
Subjective/Objective
Chief Complaint
CLL, recurrent pna, hemoptysis
Subjective
Scant hemoptysis today, similar to 01/26
Vital Signs:
Vital Signs
Temp Pulse Resp BP Pulse Ox
97.8 F 85 20 127/76 98
01/29/24 11:47 01/29/24 11:47 01/29/24 11:47 01/29/24 11:47 01/29/24 11:47
Lab Results:
Laboratory Data
WBC 9.2 10^3/uL (4.8-10.8) 01/29/24 03:58
Hgb 12.9 g/dL (13.0-18.0) L 01/29/24 03:58
Plt Count 115 10^3/uL (130-400) L 01/29/24 03:58
PT 14.2 Sec (11.4-14.6) 01/26/24 13:49
INR 1.12 01/26/24 13:49
APTT 27.3 Sec (23.4-35.0) 01/26/24 13:49
eGFR > 60.00 01/29/24 03:58
Physical Exam
Awake, alert, non-toxic appearing
HEENT: Moist Mucous Membranes; No Jaundice
Cardiology: Normal Sinus Rhythm, S1 and S2
Pulmonary: Clear
GI: Soft and Normal Bowel Sounds
Extremities: Pulses Present and No C/C/E
Neuro: Non Focal
Review of Systems
Review of Systems
Constitutional: Reports Fatigue; Denies Fever
Head: Denies Sore Throat or Hearing Loss
Respiratory: Denies Dyspnea or Cough
Cardiovascular: Denies Chest Pain or Palpitations
Gastrointestinal: Denies Nausea/Vomiting or Diarrhea
Genitourinary: Denies Hematuria
Skin: Denies Rash or Pruritis
Neurological: Denies Headache or Numbness
Psychiatric: Denies Depression or Insomnia
Hem/Lymphatic: Denies Easy Bruising or Night Sweats
[2024-01-29] MEDS: ZETIA 10 MG PO (17:00)
[2024-01-29] MEDS: LIPITOR 40 MG PO (17:00)
[2024-01-29] MEDS: FLOMAX 0.400000000000000022 MG PO (17:00)
[2024-01-30 03:30] VITALS: BP 106/64
[2024-01-30] MEDS: SYNTHROID 75 MCG PO (05:36)
[2024-01-30 06:00] VITALS: BMI 23.5
[2024-01-30 08:00] VITALS: BP 128/78
[2024-01-30] MEDS: NON-FORMULARY ITEM 1 INH INH (08:18)
[2024-01-30] MEDS: MUCINEX 1200 MG PO (09:10)
[2024-01-30] MEDS: ATIVAN 0.5 MG PO (09:10)
[2024-01-30] MEDS: ZINC SULFATE 220 MG PO (09:10)
[2024-01-30] MEDS: NORVASC 5 MG PO (09:10)
[2024-01-30] MEDS: ZOVIRAX 400 MG PO (09:10)
[2024-01-30] MEDS: VISBIOME 1 CAP PO (09:10)
[2024-01-30] MEDS: VITAMIN C 500 MG PO (09:11)
[2024-01-30] MEDS: LOPRESSOR 25 MG PO (09:11)
[2024-01-30] MEDS: OSCAL CAL 500 500 MG PO (09:11)
[2024-01-30] MEDS: VITAMIN D3 (cholecalciferol) 50 MCG PO (09:11)
--- NOTE | 2024-01-30 10:44 | W.PN.ID1 ---
Date of Service
Date of Service: January 30, 2024
Today's Communication
See below.
Assessment / Plan
# Hemoptysis decreasing
# Suspect ABPA
# Recurrent PNA x 4 since Jul 2023; most recent E. coli, currently on levofloxacin
# Recurrent CLL on Zanubrutinib since 05/2023 ([facility]), prophylactic acyclovir and Bactrim 3x/wk
# Hypogammaglobulinemia on IVIG q8 weeks
- 01/18/24 Sputum E. coli, scant mold
-07/30/18 Sputum x 2: Aspergillus fumigatus
- 01/10/[address] (at [place]): new moderate RUL, RML opacities, mild LLL opacity
-01/27/[address] PE ([facility]) resolved R lung opacities; mild opacity DANIA/lingula
- Zanubrutinib increases risk of hemorrhage, drug on hold.
- Sputum cx: few Mold - asked micro to identify
- At this time unclear if Aspergillus is playing a role in hemoptysis.
- Unlikely invasive aspergillosis given relatively benign CT. Also Serum Aspergillus galactomannan assay and Fungitell both negative.
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
Total IgE >3301
Aspergillus-IgE pending. If positive, tx is steroid taper 2-3months and itraconazole x 3-6months.
If dc home prior to results, follow-up with me in 1 week.
- dc levofloxacin- had 7d course for E. coli recovered in sputum outpt.
-Continue prophylactic acyclovir and Bactrim
#Additional Past Medical History:
CLL diagnosed 2011 status post chemotherapy with recurrence in 2020, currently on Zanubrutinib since 05/2023 ([facility])
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
Hypertension
Chronic thrombocytopenia
Recurrent pneumonia
TIA
CAD status post CAB x 1
Bio-Aortic valve replacement
Appendectomy
Diverticulitis status post sigmoidectomy with colostomy with subsequent colostomy reversal
Chief Complaint
-: Other (Hemoptysis)
Subjective / Review of Systems
Has scant hemoptysis.
Vital Signs / Physical Exam
Vital Signs
Vital Signs
Temp Pulse Resp BP Pulse Ox
97.5 F 75 16 128/78 97
01/30/24 08:00 01/30/24 09:10 01/30/24 08:19 01/30/24 09:10 01/30/24 08:19
Physical Exam
Constitutional: No Acute Distress and Comfortable
Pulmonary: Coarse (LLL)
Gastrointestinal: Soft, Non Tender, Non Distended and Normal Bowel Sounds
Extremities: Negative Edema
Neurological: AO x 3
Objective Data
Lab Data
Lab Results
01/29/24 03:58
01/29/24 03:58
ESR 13 mm/hour (0-20) 01/26/24 15:01
PT 14.2 Sec (11.4-14.6) 01/26/24 13:49
INR 1.12 01/26/24 13:49
APTT 27.3 Sec (23.4-35.0) 01/26/24 13:49
Estimated Creat Clear 88 ml/min 01/29/24 03:58
Lactic Acid Cancelled 01/26/24 12:45
Total Bilirubin 1.0 mg/dl (0.2-1.3) 01/26/24 08:59
AST 36 U/L (17-59) 01/26/24 08:59
ALT 30 U/L (0-50) 01/26/24 08:59
Alkaline Phosphatase 121 U/L (38-126) 01/26/24 08:59
C-Reactive Protein 6.60 mg/L (0.0-10.00) 01/26/24 15:01
Most recent labs reviewed.
Micro Results:
01/26/24 08:59 Blood Culture - Preliminary
Blood/Venous No Growth in 4 days- Final report to follow
01/26/24 13:49 Blood Culture - Preliminary
Blood/Venous No Growth in 72 hours- Final report to follow
01/26/24 09:45 Fungus Mold Identification - Pending
Sputum
01/26/24 09:45 Respiratory Culture - Final
Sputum Mold
Gram Stain - Final
01/26/24 CXR: No acute cardiopulmonary process. Resolved left basilar pneumonia.
01/26/24 CT chest PE protocol: parenchymal consolidation consistent with pneumonia seen previously in the right upper lobe has resolved. Intraluminal opacity in the posteromedial right lower lobe segmental/subsegmental bronchus, consistent with
mucous plugging. Mild Patchy airspace opacity is present in the anterior left upper lobe, consistent with pneumonia. There is also patchy airspace opacity in the superior segment of the left lower lobe and lingula. In the left lower lobe, patchy and
slightly more confluent airspace opacity is noted, consistent with pneumonia.
[2024-01-30 11:00] VITALS: BP 120/68
[2024-01-30] MEDS: LEVAQUIN 500 MG PO (11:32)
--- NOTE | 2024-01-30 12:09 | W.PN.PUL3 ---
Today's Communication / Plan
-
Patient stable for discharge home on systemic steroids � started 40 mg daily and reduce by 10 mg every fifth day
We will see him in the office during this taper and will adjust his OCS dosing if needed depending on his symptoms
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
Defer antifungal treatment initiation to ID, who will also see the patient as an outpatient hopefully within 1 week from discharge
If patient unable to tolerate steroid taper without a recurrent ABPA flare then he will need to start biologic agent (xolair vs Nucala depending on his asthmatic Sx)
If hemoptysis recurs then we can discuss bronchoscopy for endobronchial inspection as an outpatient
Continue to hold Zanubrutinib for now given risk for hemorrhage --> defer to Oncology when to resume
Patient is stable for discharge home. We will see the patient in the office over the next 1-2 weeks. Pulmonary service will sign off. Please reconsult if there are any additional questions or concerns.
Assessment
-
68-year-old male with complex medical history including CLL on chronic Zanubrutinib, history of recurrent pneumonia recently identified as having E. coli, started on Levaquin therapy 3 days ago with subjective improvement. Now presents with
hemoptysis. We are asked to help from pulmonary standpoint 01/25
Impression:
Acute hemoptysis, 100-150cc--markedly improved as of 01/30/2024
Hx of right upper lobe pneumonia
E. coli per culture (01/18/2024 R to ampicillin/cefazolin/gentamicin/tetracycline/Bactrim)
Scant mold growth on respiratory culture
Status post Augmentin/doxycycline, switched to Levaquin with improvement
History of recurrent pneumonia, 4 times in 2023
Hypogammaglobulinemia, on IVIG
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
(ANCA neg)
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
Conditions present prior to admission
Hypertension/hyperlipidemia
History of CLL, IVIG [id number] ([place])
chronic Zanubrutinib ([place])
History of sleep apnea, not using CPAP
S/p aortic valve replacement, CAB x 2018
Hypothyroidism
History of thyroid cancer status post thyroidectomy
History of hepatitis A
Diverticulitis status post sigmoidectomy with colostomy 2020
Colostomy reversal 2021
Family history of CLL
Plan/recommendations
At this time, he is stable on RA
Minimal hemoptysis over the last 1-2 days
Hb stable
Salient features include recurrent pneumonia, recent CT chest 01/10/2024 with extensive right upper lobe consolidation, recent culture positive for E. coli with heavy growth started on Levaquin therapy with subjective improvement. There was also
scant mold growth
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
He has had recurrent pneumonias over the past 6 months with frequent antibiotic course
ID following for abx regiment. Remains on oral Levaquin
I personally reviewed all of his films. CT chest from 01/09 which showed extensive right upper lobe consolidation; CT chest performed on 01/18/2024 shows resolved RUL pneumonia and now with new DANIA pneumonia as well as patchy airspace opacities in
the LLL
Suspect mucous plugging, aspirated blood vs ABPA
Hb stable
Continue to hold Plavix/aspirin for now
Continue diet
Continue with Breo 100mcg with prn Duonebs
Follow CBC
Out of bed to chair, ambulate
Bronchoscopy not indicated as patient has improved with minimal hemoptysis today
Patient is stable for discharge and ABPA panel is pending which we will follow-up these results and discussed them with him in the office
Discharged on prednisone with taper: Start at 40 mg daily and reduce by 10 mg every fifth day; if patient does not tolerate steroid taper then he will need to start antifungal treatment with itraconazole +/- Xolair - pt to follow up with ID and I
will defer starting antifungal Tx to them; ideally if patient tolerates steroid taper without a recurrent ABPA flare, any will not need to start a biologic agent.
If hemoptysis recurs then we can discuss bronchoscopy for endobronchial inspection as an outpatient
Would hold Zanubrutinib for now given risk for hemorrhage --> defer to Oncology when to resume
Patient is stable for discharge home. We will see the patient in the office over the next 1-2 weeks. Pulmonary service will sign off. Thank you for allowing us to be involved in the care of this patient. Please reconsult if there are any
additional questions or concerns.
Total time spent today was 35 minutes for this encounter. Time includes reviewing laboratory test/imaging results, reviewing pertinent medical records, obtaining and reviewing medical history, performing an appropriate exam, ordering medications,
tests and procedures. Time also includes documentation of this encounter, coordinating patient care and communicating with other healthcare professionals. Total time does not include separately billed tests performed on this date of service.
Subjective Data
-
Date of Service:
Date of Service: January 30, 2024
Chief Complaint: Pulmonary Follow Up
Subjective:
Patient was seen and evaluated at bedside today with friend at bedside. Patient feels much better, minimal bloody phlegm production. He is ambulating okay around the unit without any chest pain or shortness of breath. He currently is eager to go
home, and denies abdominal pain, chest pain, fevers or chills.
Review of Systems
General: Other (Negative unless mentioned above)
Objective Data
Data Reviewed
Vital Signs / I&O / Oxygen:
Vital Signs
Temp Pulse Resp BP Pulse Ox
97.5 F 75 16 128/78 97
01/30/24 08:00 01/30/24 09:10 01/30/24 08:19 01/30/24 09:10 01/30/24 08:19
Intake and Output
01/29/24 01/30/24 01/31/24
06:59 06:59 06:59
Intake Total 560 / 560 600 / 600
Output Total 800 / 800 200 / 200
Balance -240 / -240 400 / 400
SaO2 97
Nasal Cannula flow liters per 93
minute
Physical Exam
General: Respiratory Distress (Negative) and Comfortable
HEENT: Normocephalic and Anicteric
Cardiovascular: S1-S2 and Peripheral Edema (Negative)
Respiratory: Wheeze (Negative), Crackles (Bilateral at the bases), Rhonchi (Negative) and Non-Labored Respirations
GI: Soft, Non Distended and Non Tender
Neurology: AO x 3 and Tremors (Negative)
Skin: Warm, Dry and Jaundice (n)
Labs/Micro/Reports
Lab Data
01/29/24 03:58
01/29/24 03:58
Microbiology
01/26/24 08:59 Blood/Venous Blood Culture - Preliminary
No Growth in 4 days- Final report to follow
01/26/24 13:49 Blood/Venous Blood Culture - Preliminary
No Growth in 72 hours- Final report to follow
01/26/24 09:45 Sputum Respiratory Culture - Final
Mold
01/26/24 09:45 Sputum Gram Stain - Final
--- NOTE | 2024-01-30 13:25 | W.PN.ONC ---
Today's Communication / Plan
-
Clinically improving. Acute plans as per pulmonary and infectious disease services.
Impression
Impression
- CLL
- acquired hypogammaglobulinemia
- recurrent respiratory infections; suspicion for allergic bronchopulmonary aspergillosis
- hemoptysis
Plan
Plan
# Recurrent respiratory infections, hemoptysis
- pt with 4 respiratory infections over 6 months that appear to respond to abx then return. He presented to ED due to hemoptysis.
- pt has a hx of acquired hypogammaglobulinemia for which he receives IVIG every ~ 8 weeks, last received 5 weeks ago. IgG 502 from 01/25, okay to continue on Q8w schedule
# Hemoptysis
- ok to hold Brukinsa in setting of reported hemoptysis. resume once this is confirmed resolved.
- sed rate unremarkable.
- vasculitis serologies from 01/25 are negative.
IgE noted to be 3301.
Brukinsa associated with frequent infection as well as bleeding; however, pt states he has been reassured by his outpt physicians that the frequent infections are not related to Brukinsa.
Unclear whether aspergillosis is present and how much it may be contributing to hemoptysis, recurrent lung infection. W/u ongoing, Pulmonary and ID following.
Subjective/Objective
Subjective/Objective
He notes less hemoptysis. His breathing is stable. Examination shows his chest to be clear.
Vital Signs:
Vital Signs
Temp Pulse Resp BP Pulse Ox
97.9 F 78 18 120/68 97
01/30/24 11:00 01/30/24 11:00 01/30/24 11:00 01/30/24 11:00 01/30/24 11:00
Lab Results:
Laboratory Data
WBC 9.2 10^3/uL (4.8-10.8) 01/29/24 03:58
Hgb 12.9 g/dL (13.0-18.0) L 01/29/24 03:58
Plt Count 115 10^3/uL (130-400) L 01/29/24 03:58
PT 14.2 Sec (11.4-14.6) 01/26/24 13:49
INR 1.12 01/26/24 13:49
APTT 27.3 Sec (23.4-35.0) 01/26/24 13:49
eGFR > 60.00 01/29/24 03:58
[2024-01-30 15:00] VITALS: BP 120/75
--- NOTE | 2024-01-30 16:51 | W.DS.TRANS ---
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
-
Discharge Instructions:
Discharge Diagnosis/Procedures ABPA.
CLL
Diet Regular
Instructions:
Stand-Alone Forms:
Changes to Home Medications: Yes
Discharge Medications:
DC Medications w/original date entered in [facility]
ascorbic acid (vitamin C) 500 mg tablet (Vitamin C) 500 mg PO DAILY Supplement 10/30/16
ezetimibe 10 mg tablet 10 mg PO QPM High cholesterol 10/30/16
levothyroxine 75 mcg tablet 75 mcg PO DAILY Thyroid 10/30/16
lorazepam 0.5 mg tablet 0.5 mg PO BID Mental Health/Anxiety 10/30/16
acyclovir 200 mg capsule 400 mg PO BID Infection 09/24/19
aspirin 81 mg tablet,delayed release 81 mg PO DAILY Blood clot prevention/tx 09/24/19
cholecalciferol (vitamin D3) 50 mcg (2,000 unit) tablet 2,000 units PO DAILY Supplement 09/24/19
metoprolol tartrate 25 mg tablet 25 mg PO BID Heart disease 09/24/19
albuterol sulfate 90 mcg/actuation aerosol inhaler 2 puff inhalation R Q4HPRN PRN shortness of breath 03/24/21
alfuzosin 10 mg tablet,extended release 24 hr 10 mg PO QPM Urinary issue 04/30/21
multivitamin with folic acid 400 mcg tablet (Tab-A-Charla) 1 tab PO DAILY Supplement 04/30/21
sildenafil (pulm.hypertension) 20 mg tablet 20 mg PO DAILYPRN PRN ed 04/30/21
Bifidobacterium infantis 4 mg capsule (Align) 4 mg PO DAILY Gastrointestinal Issue 01/26/24
albuterol sulfate 2.5 mg/3 mL (0.083 %) solution for nebulization 2.5 mg inhalation R BID shortness of breath 01/26/24
amlodipine 5 mg tablet (Norvasc) 5 mg PO DAILY Blood Pressure 01/26/24
atorvastatin 40 mg tablet 40 mg PO QPM High Cholesterol 01/26/24
calcium carbonate 500 mg PO DAILY Supplement 01/26/24
fluticasone furoate 100 mcg-vilanterol 25 mcg/dose inhalation powder (Breo Ellipta) 1 inh inhalation R DAILY Lung/Breathing Issues 01/26/24
guaifenesin 600 mg tablet, extended release 12 hr (Mucinex) 1,200 mg PO BID Gastrointestinal Issue 01/26/24
kwuzqhzd-pfifdi-tvmos extract 5 mg-6 mg-150 mg capsule (Fruit and Vegetable Daily) 3 cap PO BID Supplement 01/26/24
sulfamethoxazole 800 mg-trimethoprim 160 mg tablet (Bactrim DS) 1 tab PO MOWEFR@0800 Infection 01/26/24
testosterone 50 mg/5 gram (1 %) transdermal gel 1 packet topical DAILY Hormonal Agent 01/26/24
zanubrutinib 80 mg capsule (Brukinsa) 160 mg PO BID CLL 01/26/24
zinc sulfate 25 mg zinc (110 mg) tablet 25 mg PO DAILY Supplement 01/26/24
prednisone 10 mg tablet 10 mg PO DIRECTED #50 tabs 01/30/24
Home Medication Changes
Prednisone taper
Pending Results: Yes
Total time spent discharging patient (in min): Aspergilous IgE
== END 2024-01-30 18:26 | disposition home or self-care (01) | DRG 178 ==
LOC: 4 EAST ACU 12:56
PROVIDERS: Internal Medicine; Nurse Practitioner Family; ADMITTING PHYSICIAN Internal Medicine; ATTENDING PHYSICIAN Internal Medicine; CONSULT PHYSICIAN Internal Medicine Hematology & Oncology; CONSULT PHYSICIAN Internal Medicine Infectious Disease; EMERGENCY PHYSICIAN Emergency Medicine; FAMILY PHYSICIAN Family Medicine; OTHER PHYSICIAN Internal Medicine Critical Care Medicine
DX: J15.5 Pneumonia due to Escherichia coli (principal); C91.10 Chronic lymphocytic leukemia of B-cell type not having achieved remission; R04.2 Hemoptysis; D80.1 Nonfamilial hypogammaglobulinemia; D84.9 Immunodeficiency, unspecified; D69.6 Thrombocytopenia, unspecified; I10 Essential (primary) hypertension; Z95.3 Presence of xenogenic heart valve; J45.909 Unspecified asthma, uncomplicated; E03.9 Hypothyroidism, unspecified; E78.00 Pure hypercholesterolemia, unspecified; G47.30 Sleep apnea, unspecified; Z79.82 Long term (current) use of aspirin; Z79.890 Hormone replacement therapy; Z79.899 Other long term (current) drug therapy; Z87.01 Personal history of pneumonia (recurrent); Z86.73 Personal history of transient ischemic attack (TIA), and cerebral infarction without residual deficits; Z87.19 Personal history of other diseases of the digestive system; Z87.891 Personal history of nicotine dependence; Z92.21 Personal history of antineoplastic chemotherapy; Z90.49 Acquired absence of other specified parts of digestive tract; Z95.1 Presence of aortocoronary bypass graft; Z88.8 Allergy status to other drugs, medicaments and biological substances
CPT/HCPCS: 71045; 71046; 71275; 80048; 80053; 82784; 82785; 83516; 83605; 83735; 85025; 85027; 85384; 85610; 85652; 85730; 86140; 86850; 86900; 86901; 87040; 87070; 87107; 87205; 93005; 94640; 99285; Q9967

== ENCOUNTER 2024-04-30 18:22 | Inpatient (IN) | payer MEDICARE, OTHER, SELFPAY ==
[2024-04-30] VITALS (9 sets, daily range): BP systolic 120–138; BP diastolic 61–76; BMI 25.4
[2024-04-30 13:06] LABS: % Basophils 0.2 % (0-2); % Eosinophils 0.1 % (0-6); % Immature Granulocytes 0.9 % (0-0.5); % Lymphocytes 8.8 % (20.5-51.1); % Monocytes 2.7 % (1.7-9.3); % Neutrophils 87.3 % (42.2-75.2); Absolute Basophils 0.1 10^3/uL (0-0.2); Absolute Immature Granulocytes 0.2 10^3/uL (0-0.05); Absolute Lymphocytes 2.2 10^3/uL (1.2-3.4); Absolute Monocytes 0.7 10^3/uL (0.1-0.6); Absolute Neutrophils 22.3 10^3/uL (1.4-6.5); Hematocrit 40.8 % (39.0-52.0); Mean Corp Hgb Conc. 34.3 g/dL (33.0-37.0); Mean Corpuscular Hgb 30.2 pg (27.0-31.0); Mean Corpuscular Volume 88.1 fL (80.0-94.0); Mean Platelet Volume 11.2 fL (7.4-10.4); Nucleated Red Blood Cells % 0 % (-); Platelet Count 104 10^3/uL (130-400); Red Blood Cell Count 4.63 10^6/uL (4.70-6.10); Red Cell Dist. Width 14.9 % (11.5-14.5); White Blood Cell Count 25.5 10^3/uL (4.8-10.8)
[2024-04-30 13:18] LABS: INR 1.23; PT 15.3 Sec (11.4-14.6)
[2024-04-30 13:19] LABS: APTT 36.6 Sec (23.4-35.0); COVID-19 Antigen Negative (Negative)
[2024-04-30 13:23] LABS: ALT (SGPT) 19 U/L (0-50); AST (SGOT) 21 U/L (17-59); Albumin 3.7 g/dl (3.5-5.0); Alkaline Phosphatase 98 U/L (38-126); Calcium 8.7 mg/dl (8.4-10.2); Carbon Dioxide 31 mmol/L (22-30); Chloride 97 mmol/L (98-107); Glucose 225 mg/dl (70-99); Potassium 3.8 mmol/L (3.5-5.1); Sodium 139 mmol/L (135-145); Total Protein 5.8 g/dl (6.3-8.2); eGFR > 60.00
--- NOTE | 2024-04-30 13:46 | ED.GENMED ---
History of Present Illness
<Pasquale Muhammad MD, Resident - Last Filed: 05/01/24 08:59>
General
Chief Complaint: Cold/Flu/URI Symptoms
Source: patient and records
Time Seen by Provider: 04/30/24 13:19
Travel History
Have you traveled to any high risk areas for coronavirus over the past 14 days?: No
Have you had any contact with someone who has COVID-19?: No
Do you have any symptoms of coronavirus? Fever > 100 degrees, chills, cough, shortness of breath, sore throat, loss of taste or smell, muscle aches, or headache?: No
History of Present Illness
History of Present Illness:
Watson Ward, 68-year-old male, with chronic lymphocytic leukemia on zanubrutinib, hypogammaglobulinemia on IVIG, allergic bronchopulmonary aspergillosis, recurrent pneumonias and currently on a prednisone taper, has been experiencing right-sided
sharp back pain since 04-27-24. The pain is more prominent with deep inspiration. On 04-28-24, he developed fever, night sweats, chills and hemoptysis, which have all persisted. He discussed this with his primary who recommended he go to the
hospital for further evaluation and management. Of note, he is on trimethoprim-sulfamethoxazole, itraconazole and acyclovir prophylaxis.
Past History
<Pasquale Muhammad MD, Resident - Last Filed: 05/01/24 08:59>
Past History
ED Past Medical History: Asthma, COPD, HTN, Hypercholesterolemia, Other (CLL) and Other (Thyroid nodules, migraines, bicuspid valve leaks, pneumonia, hepatitis C, kidney stones, thyroid cancer, shingles, skin cancer, anemia hypogonadism)
ED Past Surgical History: Appendectomy, Bowel resection and Tonsilectomy
Social History
Tobacco: Non-smoker
Alcohol: Occasional
Drug: None
Personal:
Living: with family
Employment: Employed
Phy Exam
<Pasquale Muhammad MD, Resident - Last Filed: 05/01/24 08:59>
General Physical Exam
General Presentation: well appearing and no apparent distress
General Skin: warm and dry
General Habitus: normal
General Mental: alert
General Hydration: appears well hydrated
ENT Exam
ENT Exam: EOMI, pharynx normal, neck supple and normocephalic
Eye Exam
Eye Exam: PERRL, cornea clear and conjunctiva normal
Cardiovascular Exam
Cardiovascular Exam: regular rate/rhythm, no edema, no murmur and normal peripheral pulses
Pulmonary Exam
Pulmonary Exam: no respiratory distress, no stridor, generalized wheezing and other (bilateral rhonchi at bases (L>R))
Oxygen Status: room air
Cough: coarse cough and other (hemoptysis)
Gastrointestinal Exam
Gastrointestinal Exam: normal bowel sounds, non tender, soft, no organomegaly, no pulsatile mass and non distended
Neurological Exam
Neurological Exam: alert, oriented x3, no motor deficits and speech normal
Musculoskeletal Exam
Musculoskeletal Exam: full ROM and no edema
Skin Exam
Skin Exam: normal color, warm/dry, no rash and no petechia
Psychiatric Exam
Psychiatric Exam: normal mood/affect
Sepsis
<Pasquale Muhammad MD, Resident - Last Filed: 05/01/24 08:59>
Sepsis Screen
Sepsis Screen: Severe Sepsis
Date: 05/01/24
Time: 08:59
<Aaron Brown, DO - Last Filed: 04/30/24 20:55>
Sepsis Screening
Sepsis Assessment: Severe Sepsis
Sepsis Screening: Lactate >2mmol/L
Sepsis Screen
Sepsis Screen: Severe Sepsis
Date: 04/30/24
Time: 20:55
Course
<Pasquale Muhammad MD, Resident - Last Filed: 05/01/24 08:59>
Orders/Labs/Results
Orders:
Orders
04/30/24 12:44
EKG [Electrocardiogram (*1)] Urgent
Reason for Study: Chest Pain
EKG- Treatment ONCE
04/30/24 12:57
COVID-19 Antigen Urgent
Source: Nasal Swab
Complete Blood Count/With Diff Urgent
Comprehensive Metabolic Panel Urgent
PTT Urgent
Prothrombin Time Urgent
04/30/24 14:[address] [CT Chest Pe Study] Stat
Comment:
Reason For Exam: right sided sharp back pain
04/30/24 14:08
Diphenhydramine [Benadryl] 50 mg IV NOW STA
Hydrocortisone Sod Succinate [Solu-Cortef] 200 mg IV NOW STA
04/30/24 14:33
Lactic Acid Q4H
Comment: CANCEL 2nd LACTIC ACID IF 1st LACTIC ACID IS LESS THAN 2
Blood Culture Urgent
DIALLO Source: Blood/Venous
Specimen Description:
Influenza A+B Rapid Molecular Urgent
DIALLO Source: Nasal Swab
Specimen Description:
04/30/24 Dinner
Regular
At Your Request: Full Participation
04/30/24 18:05
Admit/Transfer Patient As Directed
Co-Sign Provider:
Level of Care: Inpatient admission
Assign to:: Medical/Surgical
Physician / Group: Alex Manzano
Diagnosis: Right lung PNA, h/o of aspergillosis
Reason for Hospitalization: Right lung PNA, h/o of aspergillosis in immunocompromised patient requiring
further testing
Expected length of stay greater than two midnights?: Yes
ELOS- Estimated Length of Stay in days: 2
I certify the patient meets the requirements for IP care: Yes
04/30/24 18:08
PRN Pain Medication Management As Directed
May give lesser potent ordered pain med per pt: Yes
preference::
Protocol:: Medication orders for pain may be administered in a
manner that supports deferring to patient preference
when the pt is:
- Requesting an ordered lesser potent pain medication.
Least to most potent pain medications are defined
as: acetaminophen < NSAID < tramadol < opioids
(morphine, oxycodone, hydromorphone).
- Requesting a lesser dose of the same medication IF
ORDERED.
- Requesting a less intrusive route of administration
if both routes are prescribed by the provider (PO <
IV).
04/30/24 18:12
Code Status As Directed
Resuscitation Status: Full Code
04/30/24 19:41
Acetaminophen [Tylenol] 650 mg PO Q4HPRN PRN
Albuterol Nebs [Ventolin Nebules] 2.5 mg INH R BIDPRN PRN
Bisacodyl [Dulcolax] 10 mg RECTAL [id number] PRN
Dextrose 50%-Water [Dextrose 50% Syringe] 12.5 grams IV [id number] PRN
Docusate W/Senna [Senokot-S] 1 tablet PO BIDPRN PRN
Glucagon [GlucaGen] 1 mg IM PRN PRN
Polyethylene Glycol Powder [Miralax] 17 grams PO DAILYPRN PRN
04/30/24 19:41
Consult Infectious Disease [INFECTIOUS DISEASE CONSULT] Routine
Consulting Provider: Rachel Hamlin
Was physician already notified: Yes
Reason for consult: aspergillus, Pna
Consult Pulmonary [PULMONARY CONSULT] Routine
Consulting Provider: Janette Hancock
Was physician already notified: Yes
Reason for consult: R pneumonia, immunocompromised
Respiratory Culture/Gram Stain Routine
DIALLO Source: Sputum
Specimen Description:
Activity As Directed
Activity Level: Ambulate
Bedside Glucose Monitoring As Directed
Frequency: AC&HS
Additional Instructions:: Change to q6h if pt on TPN, tube feeding or not eating
Pneumatic Compression Sleeves As Directed
Type: Knee high
Vital Signs As Directed
Frequency: Per unit guidelines
DX Deep Vein Thrombosis Video Routine
04/30/24 20:00
Acyclovir [Zovirax] 400 mg PO BID
Itraconazole [Sporanox] 200 mg PO BID
Lorazepam [Ativan] 0.5 mg PO BID
Metoprolol [Lopressor] 25 mg PO BID
Piperacillin/Tazo 4.5 Gram [Zosyn] 4.5 gram in 100 ml IV Q6H
zanubrutinib [Brukinsa] See Dose Instructions PO BID
05/01/24 06:00
Basic Metabolic Panel IN AM
Complete Blood Count/No Diff IN AM
Hemoglobin A1c [Glycohemoglobin (HgbA1c)] IN AM
Levothyroxine [Synthroid] 75 mcg PO DAILY@0600
05/01/24 07:30
Insulin Aspart Corrective Low [Novolog Flexpen-Low Resistance] See Protocol SC AC
05/01/24 08:00
Amlodipine [Norvasc] 5 mg PO DAILY
Aspirin Low Dose EC [Aspir Low (Enteric Coated)] 81 mg PO DAILY
Prednisone [Deltasone] 5 mg PO Q48H
Sulfamethox./Trimethoprim Ds [Bactrim Ds 800 mg/160 mg] 1 tablet PO MOWEFR@0800
testosterone 1 packet TOPICAL DAILY
05/01/24 18:00
Ezetimibe [Zetia] 10 mg PO QPM
05/02/24 06:00
Basic Metabolic Panel IN AM
Complete Blood Count/No Diff IN AM
05/02/24 08:00
Prednisone [Deltasone] 10 mg PO Q48H
Abnormal Lab Results
04/30/24
12:57
WBC 25.5 H 10^3/uL
(4.8-10.8)
RBC 4.63 L 10^6/uL
(4.70-6.10)
RDW 14.9 H %
(11.5-14.5)
Plt Count 104 L 10^3/uL
(130-400)
MPV 11.2 H fL
(7.4-10.4)
Abs Immat Gran (auto) 0.2 H 10^3/uL
(0-0.05)
Absolute Neuts (auto) 22.3 H 10^3/uL
(1.4-6.5)
Absolute Monos (auto) 0.7 H 10^3/uL
(0.1-0.6)
Immature Gran % 0.9 H %
(0-0.5)
Neutrophils % 87.3 H %
(42.2-75.2)
Lymphocytes % 8.8 L %
(20.5-51.1)
PT 15.3 H Sec
(11.4-14.6)
APTT 36.6 H Sec
(23.4-35.0)
Chloride 97 L mmol/L
(98-107)
Carbon Dioxide 31 H mmol/L
(22-30)
BUN 26 H mg/dl
(9-20)
Glucose 225 H mg/dl
(70-99)
Total Protein 5.8 L g/dl
(6.3-8.2)
04/30/24 12:57
04/30/24 12:57
Vital Signs
Initial and Last Documented VS:
Initial Vital Signs
Pulse Resp BP Pulse Ox
94 18 128/66 97
04/30/24 12:50 04/30/24 12:50 04/30/24 12:50 04/30/24 12:50
Last Documented Vital Signs
Temp Pulse Resp BP Pulse Ox
98.0 F 85 16 129/76 95
05/01/24 07:30 05/01/24 07:30 05/01/24 07:30 05/01/24 07:30 05/01/24 07:30
<Celestine Kilpatrick MD - Last Filed: 04/30/24 15:16>
Orders/Labs/Results
Orders:
Orders
04/30/24 12:44
EKG [Electrocardiogram (*1)] Urgent
Reason for Study: Chest Pain
EKG- Treatment ONCE
04/30/24 12:57
COVID-19 Antigen Urgent
Source: Nasal Swab
Complete Blood Count/With Diff Urgent
Comprehensive Metabolic Panel Urgent
PTT Urgent
Prothrombin Time Urgent
04/30/24 14:[address] [CT Chest Pe Study] Stat
Comment:
Reason For Exam: right sided sharp back pain
04/30/24 14:08
Diphenhydramine [Benadryl] 50 mg IV NOW STA
Hydrocortisone Sod Succinate [Solu-Cortef] 200 mg IV NOW STA
04/30/24 14:33
Lactic Acid Q4H
Comment: CANCEL 2nd LACTIC ACID IF 1st LACTIC ACID IS LESS THAN 2
Blood Culture Urgent
DIALLO Source: Blood/Venous
Specimen Description:
Influenza A+B Rapid Molecular Urgent
DIALLO Source: Nasal Swab
Specimen Description:
04/30/24 Dinner
Regular
At Your Request: Full Participation
04/30/24 18:05
Admit/Transfer Patient As Directed
Co-Sign Provider:
Level of Care: Inpatient admission
Assign to:: Medical/Surgical
Physician / Group: Alex Manzano
Diagnosis: Right lung PNA, h/o of aspergillosis
Reason for Hospitalization: Right lung PNA, h/o of aspergillosis in immunocompromised patient requiring
further testing
Expected length of stay greater than two midnights?: Yes
ELOS- Estimated Length of Stay in days: 2
I certify the patient meets the requirements for IP care: Yes
04/30/24 18:08
PRN Pain Medication Management As Directed
May give lesser potent ordered pain med per pt: Yes
preference::
Protocol:: Medication orders for pain may be administered in a
manner that supports deferring to patient preference
when the pt is:
- Requesting an ordered lesser potent pain medication.
Least to most potent pain medications are defined
as: acetaminophen < NSAID < tramadol < opioids
(morphine, oxycodone, hydromorphone).
- Requesting a lesser dose of the same medication IF
ORDERED.
- Requesting a less intrusive route of administration
if both routes are prescribed by the provider (PO <
IV).
04/30/24 18:12
Code Status As Directed
Resuscitation Status: Full Code
04/30/24 19:41
Acetaminophen [Tylenol] 650 mg PO Q4HPRN PRN
Albuterol Nebs [Ventolin Nebules] 2.5 mg INH R BIDPRN PRN
Bisacodyl [Dulcolax] 10 mg RECTAL [id number] PRN
Dextrose 50%-Water [Dextrose 50% Syringe] 12.5 grams IV [id number] PRN
Docusate W/Senna [Senokot-S] 1 tablet PO BIDPRN PRN
Glucagon [GlucaGen] 1 mg IM PRN PRN
Polyethylene Glycol Powder [Miralax] 17 grams PO DAILYPRN PRN
04/30/24 19:41
Consult Infectious Disease [INFECTIOUS DISEASE CONSULT] Routine
Consulting Provider: Rachel Hamlin
Was physician already notified: Yes
Reason for consult: aspergillus, Pna
Consult Pulmonary [PULMONARY CONSULT] Routine
Consulting Provider: Janette Hancock
Was physician already notified: Yes
Reason for consult: R pneumonia, immunocompromised
Respiratory Culture/Gram Stain Routine
DIALLO Source: Sputum
Specimen Description:
Activity As Directed
Activity Level: Ambulate
Bedside Glucose Monitoring As Directed
Frequency: AC&HS
Additional Instructions:: Change to q6h if pt on TPN, tube feeding or not eating
Pneumatic Compression Sleeves As Directed
Type: Knee high
Vital Signs As Directed
Frequency: Per unit guidelines
DX Deep Vein Thrombosis Video Routine
04/30/24 20:00
Acyclovir [Zovirax] 400 mg PO BID
Itraconazole [Sporanox] 200 mg PO BID
Lorazepam [Ativan] 0.5 mg PO BID
Metoprolol [Lopressor] 25 mg PO BID
Piperacillin/Tazo 4.5 Gram [Zosyn] 4.5 gram in 100 ml IV Q6H
zanubrutinib [Brukinsa] See Dose Instructions PO BID
05/01/24 06:00
Basic Metabolic Panel IN AM
Complete Blood Count/No Diff IN AM
Hemoglobin A1c [Glycohemoglobin (HgbA1c)] IN AM
Levothyroxine [Synthroid] 75 mcg PO DAILY@0600
05/01/24 07:30
Insulin Aspart Corrective Low [Novolog Flexpen-Low Resistance] See Protocol SC AC
05/01/24 08:00
Amlodipine [Norvasc] 5 mg PO DAILY
Aspirin Low Dose EC [Aspir Low (Enteric Coated)] 81 mg PO DAILY
Prednisone [Deltasone] 5 mg PO Q48H
Sulfamethox./Trimethoprim Ds [Bactrim Ds 800 mg/160 mg] 1 tablet PO MOWEFR@0800
testosterone 1 packet TOPICAL DAILY
05/01/24 18:00
Ezetimibe [Zetia] 10 mg PO QPM
05/02/24 06:00
Basic Metabolic Panel IN AM
Complete Blood Count/No Diff IN AM
05/02/24 08:00
Prednisone [Deltasone] 10 mg PO Q48H
Abnormal Lab Results
04/30/24
12:57
WBC 25.5 H 10^3/uL
(4.8-10.8)
RBC 4.63 L 10^6/uL
(4.70-6.10)
RDW 14.9 H %
(11.5-14.5)
Plt Count 104 L 10^3/uL
(130-400)
MPV 11.2 H fL
(7.4-10.4)
Abs Immat Gran (auto) 0.2 H 10^3/uL
(0-0.05)
Absolute Neuts (auto) 22.3 H 10^3/uL
(1.4-6.5)
Absolute Monos (auto) 0.7 H 10^3/uL
(0.1-0.6)
Immature Gran % 0.9 H %
(0-0.5)
Neutrophils % 87.3 H %
(42.2-75.2)
Lymphocytes % 8.8 L %
(20.5-51.1)
PT 15.3 H Sec
(11.4-14.6)
APTT 36.6 H Sec
(23.4-35.0)
Chloride 97 L mmol/L
(98-107)
Carbon Dioxide 31 H mmol/L
(22-30)
BUN 26 H mg/dl
(9-20)
Glucose 225 H mg/dl
(70-99)
Total Protein 5.8 L g/dl
(6.3-8.2)
04/30/24 12:57
04/30/24 12:57
Vital Signs
Initial and Last Documented VS:
Initial Vital Signs
Pulse Resp BP Pulse Ox
94 18 128/66 97
04/30/24 12:50 04/30/24 12:50 04/30/24 12:50 04/30/24 12:50
Last Documented Vital Signs
Temp Pulse Resp BP Pulse Ox
98.0 F 85 16 129/76 95
05/01/24 07:30 05/01/24 07:30 05/01/24 07:30 05/01/24 07:30 05/01/24 07:30
<Aaronash Luther Kevin, DO - Last Filed: 04/30/24 20:55>
Orders/Labs/Results
Orders:
Orders
04/30/24 12:44
EKG [Electrocardiogram (*1)] Urgent
Reason for Study: Chest Pain
EKG- Treatment ONCE
04/30/24 12:57
COVID-19 Antigen Urgent
Source: Nasal Swab
Complete Blood Count/With Diff Urgent
Comprehensive Metabolic Panel Urgent
PTT Urgent
Prothrombin Time Urgent
04/30/24 14:[address] [CT Chest Pe Study] Stat
Comment:
Reason For Exam: right sided sharp back pain
04/30/24 14:08
Diphenhydramine [Benadryl] 50 mg IV NOW STA
Hydrocortisone Sod Succinate [Solu-Cortef] 200 mg IV NOW STA
04/30/24 14:33
Lactic Acid Q4H
Comment: CANCEL 2nd LACTIC ACID IF 1st LACTIC ACID IS LESS THAN 2
Blood Culture Urgent
DIALLO Source: Blood/Venous
Specimen Description:
Influenza A+B Rapid Molecular Urgent
DIALLO Source: Nasal Swab
Specimen Description:
04/30/24 Dinner
Regular
At Your Request: Full Participation
04/30/24 18:05
Admit/Transfer Patient As Directed
Co-Sign Provider:
Level of Care: Inpatient admission
Assign to:: Medical/Surgical
Physician / Group: Alex Manzano
Diagnosis: Right lung PNA, h/o of aspergillosis
Reason for Hospitalization: Right lung PNA, h/o of aspergillosis in immunocompromised patient requiring
further testing
Expected length of stay greater than two midnights?: Yes
ELOS- Estimated Length of Stay in days: 2
I certify the patient meets the requirements for IP care: Yes
04/30/24 18:08
PRN Pain Medication Management As Directed
May give lesser potent ordered pain med per pt: Yes
preference::
Protocol:: Medication orders for pain may be administered in a
manner that supports deferring to patient preference
when the pt is:
- Requesting an ordered lesser potent pain medication.
Least to most potent pain medications are defined
as: acetaminophen < NSAID < tramadol < opioids
(morphine, oxycodone, hydromorphone).
- Requesting a lesser dose of the same medication IF
ORDERED.
- Requesting a less intrusive route of administration
if both routes are prescribed by the provider (PO <
IV).
04/30/24 18:12
Code Status As Directed
Resuscitation Status: Full Code
04/30/24 19:41
Acetaminophen [Tylenol] 650 mg PO Q4HPRN PRN
Albuterol Nebs [Ventolin Nebules] 2.5 mg INH R BIDPRN PRN
Bisacodyl [Dulcolax] 10 mg RECTAL [id number] PRN
Dextrose 50%-Water [Dextrose 50% Syringe] 12.5 grams IV [id number] PRN
Docusate W/Senna [Senokot-S] 1 tablet PO BIDPRN PRN
Glucagon [GlucaGen] 1 mg IM PRN PRN
Polyethylene Glycol Powder [Miralax] 17 grams PO DAILYPRN PRN
04/30/24 19:41
Consult Infectious Disease [INFECTIOUS DISEASE CONSULT] Routine
Consulting Provider: Rachel Hamlin
Was physician already notified: Yes
Reason for consult: aspergillus, Pna
Consult Pulmonary [PULMONARY CONSULT] Routine
Consulting Provider: Janette Hancock
Was physician already notified: Yes
Reason for consult: R pneumonia, immunocompromised
Respiratory Culture/Gram Stain Routine
DIALLO Source: Sputum
Specimen Description:
Activity As Directed
Activity Level: Ambulate
Bedside Glucose Monitoring As Directed
Frequency: AC&HS
Additional Instructions:: Change to q6h if pt on TPN, tube feeding or not eating
Pneumatic Compression Sleeves As Directed
Type: Knee high
Vital Signs As Directed
Frequency: Per unit guidelines
DX Deep Vein Thrombosis Video Routine
04/30/24 20:00
Acyclovir [Zovirax] 400 mg PO BID
Itraconazole [Sporanox] 200 mg PO BID
Lorazepam [Ativan] 0.5 mg PO BID
Metoprolol [Lopressor] 25 mg PO BID
Piperacillin/Tazo 4.5 Gram [Zosyn] 4.5 gram in 100 ml IV Q6H
zanubrutinib [Brukinsa] See Dose Instructions PO BID
05/01/24 06:00
Basic Metabolic Panel IN AM
Complete Blood Count/No Diff IN AM
Hemoglobin A1c [Glycohemoglobin (HgbA1c)] IN AM
Levothyroxine [Synthroid] 75 mcg PO DAILY@0600
05/01/24 07:30
Insulin Aspart Corrective Low [Novolog Flexpen-Low Resistance] See Protocol SC AC
05/01/24 08:00
Amlodipine [Norvasc] 5 mg PO DAILY
Aspirin Low Dose EC [Aspir Low (Enteric Coated)] 81 mg PO DAILY
Prednisone [Deltasone] 5 mg PO Q48H
Sulfamethox./Trimethoprim Ds [Bactrim Ds 800 mg/160 mg] 1 tablet PO MOWEFR@0800
testosterone 1 packet TOPICAL DAILY
05/01/24 18:00
Ezetimibe [Zetia] 10 mg PO QPM
05/02/24 06:00
Basic Metabolic Panel IN AM
Complete Blood Count/No Diff IN AM
05/02/24 08:00
Prednisone [Deltasone] 10 mg PO Q48H
Abnormal Lab Results
04/30/24
12:57
WBC 25.5 H 10^3/uL
(4.8-10.8)
RBC 4.63 L 10^6/uL
(4.70-6.10)
RDW 14.9 H %
(11.5-14.5)
Plt Count 104 L 10^3/uL
(130-400)
MPV 11.2 H fL
(7.4-10.4)
Abs Immat Gran (auto) 0.2 H 10^3/uL
(0-0.05)
Absolute Neuts (auto) 22.3 H 10^3/uL
(1.4-6.5)
Absolute Monos (auto) 0.7 H 10^3/uL
(0.1-0.6)
Immature Gran % 0.9 H %
(0-0.5)
Neutrophils % 87.3 H %
(42.2-75.2)
Lymphocytes % 8.8 L %
(20.5-51.1)
PT 15.3 H Sec
(11.4-14.6)
APTT 36.6 H Sec
(23.4-35.0)
Chloride 97 L mmol/L
(98-107)
Carbon Dioxide 31 H mmol/L
(22-30)
BUN 26 H mg/dl
(9-20)
Glucose 225 H mg/dl
(70-99)
Total Protein 5.8 L g/dl
(6.3-8.2)
04/30/24 12:57
04/30/24 12:57
Vital Signs
Initial and Last Documented VS:
Initial Vital Signs
Pulse Resp BP Pulse Ox
94 18 128/66 97
04/30/24 12:50 04/30/24 12:50 04/30/24 12:50 04/30/24 12:50
Last Documented Vital Signs
Temp Pulse Resp BP Pulse Ox
98.0 F 85 16 129/76 95
05/01/24 07:30 05/01/24 07:30 05/01/24 07:30 05/01/24 07:30 05/01/24 07:30
<Pasquale Muhammad MD, Resident - Last Filed: 05/01/24 08:59>
MDM/Problems Addressed
Differential Diagnosis Includes:
Pulmonary embolism
Community acquired pneumonia
Aspergilloma
Empyema
MDM/Problems Addressed:
Considering the pleuritic pain, borderline tachycardia, presence of CLL and non-anticoagulated status, will check CT chest. IV hydrocortisone and diphenhydramine given for preparation.
Chronic conditions affecting care:
Chronic lymphocytic leukemia on zanubrutinib, hypogammaglobulinemia on IVIG, allergic bronchopulmonary aspergillosis, recurrent pneumonias and status prednisone taper
<Aaron Brown DO - Last Filed: 04/30/24 20:55>
*Critical Care Note
Total Time (30-74mins, 75-104mins- exclusive of procedures): Not Applicable
ED Attending Note
<Pasquale Muhammad MD, Resident - Last Filed: 05/01/24 08:59>
-
Portions of this chart may have been created with voice recognition software.� Occasional wrong word or��sound alike� substitutions may have occurred due to the inherent limitations of voice recognition software.
<Celestine Kilpatrick MD - Last Filed: 04/30/24 15:16>
ED Attending Note
Patient seen and examined by attending physician: Yes
I performed a history and physical exam of patient and discussed management with resident, I reviewed resident's note and agree with documented findings and plan of care.: Yes
ED Attending Note:
HPI: Patient is a 68-year-old male with history of CLL on immunotherapy, hypogammaglobulinemia on IVIG, ABPA, multiple recurrent pneumonias currently on a prednisone taper presented to the ED with worsening shortness of breath and fevers. Patient
states that a few days ago he had left-sided back pain that was sharp and pleuritic. He is also been having fevers hemoptysis and a cough which is chronic for him. Denies any congestion or rhinorrhea. He denies any chest pain. No nausea or
vomiting. No diarrhea. He has been taking all his medications.
GENERAL: in no acute distress
HEENT: normocephalic, extraocular movements intact, moist oral mucosa
NECK: normal inspection
RESPIRATORY: no respiratory distress, crackles at the base
CARDIOVASCULAR: regular rate and rhythm
ABDOMEN/: soft, non-distended, non-tender to palpation, no rebound or guarding
EXTREMITIES: non-tender, no edema/swelling
NEUROLOGIC: awake and alert, moves all extremities
SKIN: warm
MDM: Patient is a 68-year-old man with history of CLL on chemotherapy, hypogammaglobulinemia on IVIG, ABPA, multiple admissions for pneumonia finishing up a prednisone taper presenting to the emergency department with new back pain that is pleuritic
as well as fevers hemoptysis and a cough. Vitals here are unremarkable and exam does show crackles. Concern for pneumonia. However given the pleuritic pain will rule out PE. Less likely to be ACS. Could be viral condition such as COVID or flu.
Blood work obtained prior to my evaluation does show leukocytosis. He does have blood work completed earlier in the week and is similar. Leukocytosis certainly could be secondary to the prednisone though given recent fever chills could be
secondary to the pneumonia. Will check blood cultures. Will obtain CT PE. Patient likely will need admission.
Discharge Plan
Departure
Patient Disposition: Admit
Date of Disposition: 04/30/24
Time of Disposition: 17:14
Presentation/result/management discussed w/ accepting MD/DO: Hospitalist
Discharge Problem:
Pneumonia
Interventions
Interventions:
*Risk Screen - Suicide Last Done: 04/30/24 15:19
*General Assessment Last Done: 04/30/24 15:19
*Neglect/Abuse Screening Last Done: 04/30/24 15:19
*ED COVID-19 Vaccine History Last Done: 04/30/24 15:19
*Nursing Disposition Last Done: 04/30/24 20:03
ED- Pulmonary Assessment Last Done: 04/30/24 15:19
Discharge Date and Time
Discharge Date/Time: 04/30/24 20:04
[2024-04-30 14:01] LABS: Blood Urea Nitrogen 26 mg/dl (9-20); Total Bilirubin 1.1 mg/dl (0.2-1.3)
[2024-04-30] MEDS: BENADRYL 50 MG IV (14:23)
[2024-04-30] MEDS: SOLU-CORTEF 200 MG IV (14:23)
--- NOTE | 2024-04-30 18:27 | W.PN.UPDATE ---
Update Note
Progress Note Update
I personally performed a history and physical exam of the patient and discussed management with the resident. I reviewed the resident's note and agree with the documented findings and plan of care HPI/CC.
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
upper back pain, minimal pleuritic cough fever chills. Patient was hospitalized in January for pneumonia and was treated with empiric antibiotics. Patient have known Aspergillus and recurrent pneumonia for the whole year. Patient was followed up in
the office by pulmonology and was noted to have increased serological marker of aspergillosis. Patient currently on IV terconazole and tapering course of steroid. Per prophylaxis patient is on acyclovir/Bactrim. Patient gets IVIG infusion every 8
weeks and last infusion was on Monday. Patient denies of having any dyspnea.
HEENT: No pallor, cyanosis, or jaundice. Throat clear.
NECK: Supple. No JVD.
RESPIRATORY: Lungs clear to auscultation.
CVS: S1, S2 normal. RRR. No murmur, rub or gallop.
ABDOMEN: Soft, non-tender. No distension. BS+/normal.
EXTREMITIES: No peripheral cyanosis or edema.
METAL LATHER: AOx3. No focal deficits.
CT chest
No evidence of central pulmonary embolism.
Large dense consolidation with air bronchograms in the right upper lobe with some volume loss extending to the anterior right hilum most likely representing pneumonia. Central mass/malignancy with postobstructive component cannot be entirely
excluded. Recommend short-term follow-up Chest CT to confirm resolution.
Small bilateral lower lobe areas of 'consolidation with air bronchograms most likely representing subsegmental atelectasis. Pneumonia, particularly in the left lower lobe cannot be excluded.
Approximate 1.3 cm slightly irregular focal opacity in the left lower lobe, which may be inflammatory/infectious. Malignancy cannot be excluded.
Resolution of approximate 0.8 cm nodular opacity in the left upper lobe in the interval since prior study.
1. Right upper lobe consolidation -rule out pneumonia
Sepsis -fever/leukocytosis
Immunocompromise state
History of chronic pulmonary aspergillosis
-Patient have x4 episodes of pneumonia this year
-In January patient was noted to having Aspergillus from get his growth on sputum, IgE level > 3000. Xbfj-i-zyaasi in serum was negative
-Patient has been getting Iatroconazole 200 mg twice daily and will continue that
-Patient came in with new fever/chills/leukocytosis of 25K with neutrophil dominant
-CT chest as above showing mainly right upper lobe consolidation also some infiltrative change on left lower lung
-Sputum culture ordered
-Start patient on Zosyn 4.5 mg Q6 over until ID evaluation, patient is E. coli in the past never been diagnosed with Pseudomonas
-Maintain patient on prophylactic dose of Bactrim/acyclovir
-Continue home regimen of oral prednisone 10/5 mg alternate day
-Pulmonology evaluation requested and may require bronchoscopy large for further diagnosis.
2. CLL
-Brukinsa can give increased bleeding although patient wants to continue, will do for now
-will need to hold if clinically felt strong of PNA to be bacterial in origin
3. History of immunoglobulin deficiency
-Patient got IVIG on Monday, next infusion will be after 8 weeks
4. Hypothyroidism
-maintain on levothyroxine
Full code
Total time spent : 78 mins
I personally saw and examined the patient.
I have reviewed all diagnostic interpretations and treatment plans as written.
Time includes patient management by me, time spent at the patients bedside, time to review lab and imaging results, discussing patient care, documentation in the medical record, and time spent with the family or caregiver and discussing care plan
with RN/Consultants.
--- NOTE | 2024-04-30 18:32 | HPS.HSE ---
Family Physician
-
Family Physician: Irwin Kay
Chief Complaint
-
Fever with chills-4days
Back pain-1 day
History of Present Illness
Patient is a 68-year-old male known case of CLL since 2007 , acquired hypogammaglobulinemia,had recurrent pneumonia since July and was recently diagnosed with ABPA pneumonia in December 2023.
He was in his usual state of health 3 days ago when he developed high-grade fever upto 101 �F, associated with chills and had yellowish sputum with specks of blood. He took Tylenol for fever and reports to be afebrile from last 10 hours. This
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 His primary care physician
advised him to go to the emergency. Patient currently on IV terconazole and tapering course of steroid. Per prophylaxis patient is on acyclovir/Bactrim. Patient gets IVIG infusion every 8 weeks and last infusion was on . Patient denies
of having any dyspnea. He had a CAT scan done, that showed new consolidations in right upper lobe and left lower lobe.Patient admitted for recurrence of pneumonia versus ABPA workup.
Medical History
Past Medical History
Past Medical History: Reports Asthma, Cancer (thyroid,CLL since 2007), HTN, Hypercholesterolemia and Other
Additional Past Medical History:
migraines stable on codeine-butalbital from last 15 years,hepatitis c?,skin cancer
Past Surgical History: Reports Appendectomy and Bowel Resection
Additional Past Surgical History:
Aortic valve repair with bovine prosthetic
Social History
Tobacco: Non-smoker
Alcohol: Occasional
Drug: None
Personal:
Living: With Family
Employment: Retired ([employer])
Family History
Family History: Other (brother of pneumonia in setting of CLL)
Allergies / Home Medications
Allergies
Allergy/AdvReac Type Severity Reaction Status Date / Time
cat dander Allergy WHEEZING Verified 04/30/24 12:52
immune globulin,gamma (IgG) Allergy WHEEZING Verified 04/30/24 12:52
human
Iodinated Contrast Media Allergy wheezing Verified 04/30/24 12:52
[IV Dye, Iodine Containing
Contrast ]
ragweed pollen Allergy WHEEZING Verified 04/30/24 12:52
Home Medications
ascorbic acid (vitamin C) 500 mg tablet (Vitamin C) 500 mg PO DAILY Supplement 10/30/16
ezetimibe 10 mg tablet 10 mg PO QPM High cholesterol 10/30/16
levothyroxine 75 mcg tablet 75 mcg PO DAILY Thyroid 10/30/16
lorazepam 0.5 mg tablet 0.5 mg PO BID Mental Health/Anxiety 10/30/16
acyclovir 200 mg capsule 400 mg PO BID Infection 09/24/19
aspirin 81 mg tablet,delayed release 81 mg PO DAILY Blood clot prevention/tx 09/24/19
metoprolol tartrate 25 mg tablet 25 mg PO BID Heart disease 09/24/19
albuterol sulfate 90 mcg/actuation aerosol inhaler 2 puff inhalation R Q4HPRN PRN shortness of breath 03/24/21
multivitamin with folic acid 400 mcg tablet (Tab-A-Charla) 1 tab PO DAILY Supplement 04/30/21
albuterol sulfate 2.5 mg/3 mL (0.083 %) solution for nebulization 2.5 mg inhalation R BIDPRN PRN sob/wheezing 01/26/24
amlodipine 5 mg tablet (Norvasc) 5 mg PO DAILY Blood Pressure 01/26/24
calcium carbonate 500 mg PO DAILY Supplement 01/26/24
fluticasone furoate 100 mcg-vilanterol 25 mcg/dose inhalation powder (Breo Ellipta) 1 inh inhalation R DAILY Lung/Breathing Issues 01/26/24
guaifenesin 600 mg tablet, extended release 12 hr (Mucinex) 600 - 1,200 mg PO BID Gastrointestinal Issue 01/26/24
xryvbycv-qedkbv-fohvo extract 5 mg-6 mg-150 mg capsule (Fruit and Vegetable Daily) 3 cap PO BID Supplement 01/26/24
sulfamethoxazole 800 mg-trimethoprim 160 mg tablet (Bactrim DS) 1 tab PO MOWEFR@0800 Infection 01/26/24
testosterone 50 mg/5 gram (1 %) transdermal gel 1 packet topical DAILY Hormonal Agent 01/26/24
zanubrutinib 80 mg capsule (Brukinsa) 160 mg PO BID CLL 01/26/24
zinc sulfate 25 mg zinc (110 mg) tablet 25 mg PO DAILY Supplement 01/26/24
amoxicillin 500 mg capsule 2,000 mg PO DAILYPRN PRN prior to procedure 04/30/24
cholecalciferol (vitamin D3) 50 mcg (2,000 unit) tablet 50 mcg PO DAILY 04/30/24
fhoyhhr-xbzcafflvt-TUA-caffeine 30 mg-50 mg-325 mg-40 mg capsule (Ascomp with Codeine) 2 cap PO Q8HPRN PRN headache 04/30/24
dexamethasone 4 mg tablet 4 mg PO USEASDIRECTD 04/30/24
itraconazole 100 mg capsule 200 mg PO BID 04/30/24
prednisone 10 mg tablet 5 mg PO Q48H 04/30/24
prednisone 10 mg tablet 10 mg PO Q48H 04/30/24
Allergies reflects when Allergies were last updated in [facility].
Home Medications with original date entered in [facility]
Allergy/Medication List:
Allergies
Allergy/AdvReac Type Severity Reaction Status Date / Time
cat dander Allergy WHEEZING Verified 04/30/24 12:52
immune globulin,gamma (IgG) Allergy WHEEZING Verified 04/30/24 12:52
human
Iodinated Contrast Media Allergy wheezing Verified 04/30/24 12:52
[IV Dye, Iodine Containing
Contrast ]
ragweed pollen Allergy WHEEZING Verified 04/30/24 12:52
Home Medications
ascorbic acid (vitamin C) 500 mg tablet (Vitamin C) 500 mg PO DAILY Supplement 10/30/16
ezetimibe 10 mg tablet 10 mg PO QPM High cholesterol 10/30/16
levothyroxine 75 mcg tablet 75 mcg PO DAILY Thyroid 10/30/16
lorazepam 0.5 mg tablet 0.5 mg PO BID Mental Health/Anxiety 10/30/16
acyclovir 200 mg capsule 400 mg PO BID Infection 09/24/19
aspirin 81 mg tablet,delayed release 81 mg PO DAILY Blood clot prevention/tx 09/24/19
metoprolol tartrate 25 mg tablet 25 mg PO BID Heart disease 09/24/19
albuterol sulfate 90 mcg/actuation aerosol inhaler 2 puff inhalation R Q4HPRN PRN shortness of breath 03/24/21
multivitamin with folic acid 400 mcg tablet (Tab-A-Charla) 1 tab PO DAILY Supplement 04/30/21
albuterol sulfate 2.5 mg/3 mL (0.083 %) solution for nebulization 2.5 mg inhalation R BIDPRN PRN sob/wheezing 01/26/24
amlodipine 5 mg tablet (Norvasc) 5 mg PO DAILY Blood Pressure 01/26/24
calcium carbonate 500 mg PO DAILY Supplement 01/26/24
fluticasone furoate 100 mcg-vilanterol 25 mcg/dose inhalation powder (Breo Ellipta) 1 inh inhalation R DAILY Lung/Breathing Issues 01/26/24
guaifenesin 600 mg tablet, extended release 12 hr (Mucinex) 600 - 1,200 mg PO BID Gastrointestinal Issue 01/26/24
jxeygteu-sfqdul-rrfrs extract 5 mg-6 mg-150 mg capsule (Fruit and Vegetable Daily) 3 cap PO BID Supplement 01/26/24
sulfamethoxazole 800 mg-trimethoprim 160 mg tablet (Bactrim DS) 1 tab PO MOWEFR@0800 Infection 01/26/24
testosterone 50 mg/5 gram (1 %) transdermal gel 1 packet topical DAILY Hormonal Agent 01/26/24
zanubrutinib 80 mg capsule (Brukinsa) 160 mg PO BID CLL 01/26/24
zinc sulfate 25 mg zinc (110 mg) tablet 25 mg PO DAILY Supplement 01/26/24
amoxicillin 500 mg capsule 2,000 mg PO DAILYPRN PRN prior to procedure 04/30/24
cholecalciferol (vitamin D3) 50 mcg (2,000 unit) tablet 50 mcg PO DAILY 04/30/24
itusidt-hggccpzjuq-TGD-caffeine 30 mg-50 mg-325 mg-40 mg capsule (Ascomp with Codeine) 2 cap PO Q8HPRN PRN headache 04/30/24
dexamethasone 4 mg tablet 4 mg PO USEASDIRECTD 04/30/24
itraconazole 100 mg capsule 200 mg PO BID 04/30/24
prednisone 10 mg tablet 5 mg PO Q48H 04/30/24
prednisone 10 mg tablet 10 mg PO Q48H 04/30/24
Review of Systems
-
A 12 point ROS was completed and negative except as noted: Yes
Physical Exam
Vital Signs
Vital Signs
Pulse Resp BP Pulse Ox
91 18 134/63 95
04/30/24 17:59 04/30/24 17:59 04/30/24 16:00 04/30/24 17:59
Physical Exam
General: Well Developed, Well Nourished, No Apparent Distress, Comfortable and Conversant
HEENT: NormoCephalic, Anicteric and Moist mucous membranes
Respiratory: Rhonchi (bilateral lung base,)
Cardiac: S1/S2 and Regular Rhythm
GI: Soft, Non Tender, Non Distended and Normal Bowel Sounds
Musculoskeletal: No Clubbing and No Cyanosis
Skin: Warm and Dry
Neuro: Awake, Alert, Oriented, No Motor Deficits and Nonfocal/grossly intact
Hematologic/Lymphatic: No Lymphadenopathy
Psych: Calm
Laboratory Results
-
04/30/24 12:57
04/30/24 12:57
Laboratory Results
PT 15.3 Sec (11.4-14.6) H 04/30/24 12:57
INR 1.23 04/30/24 12:57
APTT 36.6 Sec (23.4-35.0) H 04/30/24 12:57
Lactic Acid Cancelled 04/30/24 18:15
Total Bilirubin 1.1 mg/dl (0.2-1.3) 04/30/24 12:57
AST 21 U/L (17-59) 04/30/24 12:57
ALT 19 U/L (0-50) 04/30/24 12:57
Alkaline Phosphatase 98 U/L (38-126) 04/30/24 12:57
Impression/Plan
-
IMPRESSION:
PLAN:
# Right upper lobe consolidation secondary to pneumonia/abpa/mass
Patient has new onset high-grade fever
Leukocytosis TLC 25
History of recurrent pneumonias throughout the year
January 2024 Aspergillus growth on sputum/IgE greater than 3000
Patient has been taking triple prophylaxis
On itraconazole trimethoprim/sulfamethoxazole, and acyclovir
pulmonology follow-up concern for recurrent aspergillus infection
CAT scan showed right upper lobe consolidation/central mass/pneumonia due to ABPA
Sputum culture ordered
Continue prophylactic drugs
Continue steroid tapering dose
Take input from pulmonology and infectious diseases for further management-
#. CLL
Diagnosis since 2007, had chemotherapy sessions, currently on Brukinsa, takes 2 tablets in the morning and evening
Brukinsa stopped recently when patient had COVID few weeks ago
continue Brukinsa
Hold brukinsa in case of bleeding or severe infection
# History of immunoglobulin deficiency
Acquired secondary to CLL and immunosuppressants
Gets 8 weekly shots of IV immunoglobulin
Last dose on Monday, April 29, 2024
-
#. Hypothyroidism
Secondary to thyroid nodule/cancer
Patient had thyroid lobectomy
On maintenance levothyroxine
[2024-04-30] MEDS: LOPRESSOR 25 MG PO (21:25)
[2024-04-30] MEDS: ATIVAN 0.5 MG PO (21:25)
[2024-04-30] MEDS: ZOVIRAX 400 MG PO (21:26)
[2024-04-30] MEDS: SPORANOX 200 MG PO (21:26)
[2024-04-30] MEDS: NON-FORMULARY ITEM 160 MG PO (21:27)
[2024-04-30] MEDS: ZOSYN 100 IV (21:57)
[2024-05-01] MEDS: ZOSYN 100 IV ×4 (03:25→21:58)
[2024-05-01] MEDS: SYNTHROID 75 MCG PO (05:06)
--- NOTE | 2024-05-01 06:16 | W.PN.HOSP.TC ---
Addendum entered and electronically signed by Alex Manzano MD 05/01/24 16:43:
No fever overnight
have cough with phlegm production and some blood in it.
CT chest
No evidence of central pulmonary embolism.
Large dense consolidation with air bronchograms in the right upper lobe with some volume loss extending to the anterior right hilum most likely representing pneumonia. Central mass/malignancy with postobstructive component cannot be entirely
excluded. Recommend short-term follow-up Chest CT to confirm resolution.
Small bilateral lower lobe areas of 'consolidation with air bronchograms most likely representing subsegmental atelectasis. Pneumonia, particularly in the left lower lobe cannot be excluded.
Approximate 1.3 cm slightly irregular focal opacity in the left lower lobe, which may be inflammatory/infectious. Malignancy cannot be excluded.
Resolution of approximate 0.8 cm nodular opacity in the left upper lobe in the interval since prior study.
1. Right upper lobe consolidation -rule out pneumonia
Sepsis -fever/leukocytosis
Immunocompromise state
History of chronic pulmonary aspergillosis
-Patient have x4 episodes of pneumonia this year
-In January patient was noted to having Aspergillus from get his growth on sputum, IgE level > 3000. Agtv-j-ooryqk in serum was negative
-Patient has been getting Itraconazole 200 mg twice daily and will continue that
-Patient came in with new fever/chills/leukocytosis of 25K with neutrophil dominant
-CT chest as above showing mainly right upper lobe consolidation also some infiltrative change on left lower lung
-Sputum culture ordered, f/u results
-Start patient on Zosyn 4.5 mg Q6h for now, patient has E. coli in the past never been diagnosed with Pseudomonas
-Maintain patient on prophylactic dose of Bactrim/acyclovir
-Continue home regimen of oral prednisone 10/5 mg alternate day
-Pulmonology and ID evaluated and inpute noted.
2. CLL
-Burkinsa can give increased bleeding although patient wants to continue, will do for now
-will need to hold if clinically felt strong of PNA to be bacterial in origin
3. History of immunoglobulin deficiency
-Patient got IVIG on Monday, next infusion will be after 8 weeks
4. Hypothyroidism
-maintain on levothyroxine
Full code
Case discussed with ID and pulmonology
Total time spent : 52 mins
Original Note:
Today's Communication/Plan
-
Infectious disease consultation
Pulmonology consultation
Collect sputum for culture
Assessment / Plan
Assessment / Plan
#IMPRESSION
Patient is a 68-year-old male known case of CLL since 2007 , has acquired hypogammaglobulinemia with 8 weekly IVIG transfusion,had recurrent pneumonia since July and was recently diagnosed with ABPA pneumonia in December 2023.Now presented with
moderate to severe back pain and new consolidation in right upper lobe with air bronchograms extending to right hilum, central mass/malignancy with postobstructive component cannot be entirely excluded.
#ASSESSMENT AND PLAN
# Right upper lobe consolidation secondary to pneumonia/abpa/mass
#. CLL
# History of immunoglobulin deficiency
#. Hypothyroidism
# Right upper lobe consolidation secondary to pneumonia/abpa/mass
Patient has new onset high-grade fever
Leukocytosis TLC 25
History of recurrent pneumonias throughout the year
January 2024 Aspergillus growth on sputum/IgE greater than 3000
Patient has been taking triple prophylaxis
On itraconazole trimethoprim/sulfamethoxazole, and acyclovir
pulmonology follow-up concern for recurrent aspergillus infection
CAT scan showed right upper lobe consolidation/central mass/pneumonia due to ABPA
Sputum culture ordered
Continue prophylactic drugs
Continue steroid tapering dose
Take input from pulmonology and infectious diseases for further management-
#. CLL
Diagnosis since 2007, had chemotherapy sessions, currently on Brukinsa, takes 2 tablets in the morning and evening
Brukinsa stopped recently when patient had COVID few weeks ago
continue Brukinsa
Hold brukinsa in case of bleeding or severe infection
# History of immunoglobulin deficiency
Acquired secondary to CLL and immunosuppressants
Gets 8 weekly shots of IV immunoglobulin
Last dose on Monday, April 29, 2024
-
#. Hypothyroidism
Secondary to thyroid nodule/cancer
Patient had thyroid lobectomy
On maintenance levothyroxine
Acute perforated sigmoid diverticulitis - s/p Exp Lap, sigmoid resection and end colostomy (Ritesh procedure) 03/24/21.
Coronary artery disease status post CABG-
COPD-Continue Breo-Continue levalbuterol
Essential HTN
Hypogonadism-continue testosterone
Full code
Dvt prophylaxis
Anticipated Discharge: 24 - 48 hours
Subjective/Interval History
-
Date of Service: May 01, 2024
No active issues, he had mild cough with sputum that was yellowish in color and had specks of blood, complains of pain on anterior chest that is muscular in nature.
Objective Data
-
Labs:
Laboratory Results
05/01/24
06:00
WBC Pending
Hgb Pending
Hct Pending
Plt Count Pending
Sodium Pending
Potassium Pending
Chloride Pending
Carbon Dioxide Pending
BUN Pending
Creatinine Pending
Glucose Pending
Calcium Pending
Vital Signs:
Vital Signs
Temp Pulse Resp BP Pulse Ox
98.1 F 87 19 127/61 95
04/30/24 23:29 04/30/24 23:29 04/30/24 23:29 04/30/24 23:29 04/30/24 23:29
I&O
04/29/24 04/30/24 05/01/24
06:59 06:59 06:59
Intake Total 240 / 240
Balance 240 / 240
Review of Systems
-
All other systems: Reviewed and negative
Physical Exam
-
General: Well Developed, Well Nourished, No Apparent Distress and Comfortable
HEENT: Normocephalic and Atraumatic
Respiratory: Rales and Decreased Breath Sounds
Cardiac: Regular Rhythm and S1/S2
GI: Soft, Nontender and Nondistended
Genito-urinary: No Costovertebral Tender
Musculoskeletal: No Clubbing, No Cyanosis and No Edema
Skin: Warm and Dry
Neuro: Awake, Alert and Oriented
Hematologic / Lymphatic: No Lymphadenopathy
Psych: Calm
[2024-05-01 07:30] VITALS: BP 129/76
[2024-05-01] MEDS: ASPIR LOW (ENTERIC COATED) 81 MG PO (09:20)
[2024-05-01] MEDS: BACTRIM DS 800 MG/160 MG 1 TABLET PO (09:20)
[2024-05-01] MEDS: ZOVIRAX 400 MG PO ×2 (09:20→20:51)
[2024-05-01] MEDS: SPORANOX 200 MG PO ×2 (09:20→20:51)
[2024-05-01] MEDS: LOPRESSOR 25 MG PO ×2 (09:20→20:50)
[2024-05-01] MEDS: ATIVAN 0.5 MG PO ×2 (09:21→20:51)
[2024-05-01] MEDS: NON-FORMULARY ITEM 80 MG PO (09:21)
[2024-05-01] MEDS: NORVASC 5 MG PO (09:21)
[2024-05-01] MEDS: DELTASONE 5 MG PO (09:21)
[2024-05-01 09:32] LABS: Hematocrit 37.4 % (39.0-52.0); Hemoglobin 12.8 g/dL (13.0-18.0); Mean Corp Hgb Conc. 34.2 g/dL (33.0-37.0); Mean Corpuscular Hgb 29.9 pg (27.0-31.0); Mean Corpuscular Volume 87.4 fL (80.0-94.0); Mean Platelet Volume 11.9 fL (7.4-10.4); Platelet Count 101 10^3/uL (130-400); Red Blood Cell Count 4.28 10^6/uL (4.70-6.10); Red Cell Dist. Width 14.6 % (11.5-14.5)
[2024-05-01 11:49] LABS: Glucose - Point of Care 166 mg/dl (70-99)
[2024-05-01 12:32] LABS: Blood Urea Nitrogen 20 mg/dl (9-20); Calcium 8.8 mg/dl (8.4-10.2); Carbon Dioxide 29 mmol/L (22-30); Chloride 101 mmol/L (98-107); Estimated Creatinine Clearance 88 ml/min; Glucose 122 mg/dl (70-99); Sodium 143 mmol/L (135-145); eGFR > 60.00
--- NOTE | 2024-05-01 13:58 | CON.ID ---
Consultation
-
Date/Time Consultation Requested: 04/30/24 19:41
Date/Time Consultation Performed: 05/01/24 13:59
Requesting Provider: Dr Manzano
Performing Provider: Dr Hamlin
Reason for Consultation: aspergillus, Pna
Chief Complaint / Past History
Chief Complaint
four days of fevers and chills
History of Present Illness
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
During last admission 3 months ago for hemoptysis, migratory pulmonary infiltrate, scant A fumigatus were noted on sputum, also had 2018 cx with A fumigatus, Serum galactomannan and fungitell were both negative, AEC was 1.2 at its highest and total
IgE >3000; he was planned for itraconazole for 4 months and steroid taper over 2-3 months. Started itraconazole 02/20 and planned to continue through 06/23. Level was 0.7 and considered adequate. Getting monthly LFTs. Followed up 03/13 and minimal
cough, tolerating itraconazole. On 04/15 IgE down to 479.
About 3-4 weeks ago had mild covid treated outpatient with paxlovid and brukinsa was held for those 5 days. 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
He now represents to the ER on 04/30 for an abrupt onset of a 3 day history of fevers to 101, chills, yellow sputum with streaky hemoptysis. On day of arrival progressed to pleuritic chest pain. No shortness of breath.
Since arrival here he has been afebrile, bp stable, wbc initially 25 now 15, hgb initially 14 now 12.8, plt initially 104 now 101 (chronic thrombocytopenia noted), L shift present on arrival, K initially 3.8 now 3.0, na 143, cr initially 1.2 now
0.9, a1c 6, lactic acid 2.0, t bili 1.1, ast 21, alt 19, alk phos 98, covid ag negative, influenza pcr negative, CT PE chest 04/30: dense consolidation with air bronchograms RUL, also consolidation in the RLL, no hilar or axillary lymphadenopathy,
blood culture ordered sent second set, sputum culture ordered but he has not yet produced a sample, patient currently on zosyn and [employer] itraconazole, acyclovir and bactrim. Reports fevers, chills and malaise notably improved since starting zosyn
here. ID is consulted for assistance with management.
Past History
Additional Past Medical History:
Asthma/COPD, Cancer of thyroid, CLL since 2007, HTN, Hypercholesterolemia,migraines ,hepatitis c,skin cancer
Chronic thrombocytopenia
Recurrent pneumonia
TIA
Additional Past Surgical History:
CAD status post CAB x 1
Bio-Aortic valve replacement
Appendectomy
Diverticulitis status post sigmoidectomy with colostomy with subsequent colostomy reversal
Allergy History:
cat dander Allergy (Verified 04/30/24 12:52)
WHEEZING
immune globulin,gamma (IgG) human Allergy (Verified 04/30/24 12:52)
WHEEZING
Iodinated Contrast Media [IV Dye, Iodine Containing Contrast ] Allergy (Verified 04/30/24 12:52)
wheezing
ragweed pollen Allergy (Verified 04/30/24 12:52)
WHEEZING
Medications Reviewed: Yes
Social History
Tobacco: Non-Smoker
Alcohol: None
Drug: None
Family History
Family History: Not Pertinent
Review of Systems
Review of Systems
General: Negative Fever or Chills
All systems: All other systems were reviewed and were negative
Vital Signs
Temp Pulse Resp BP Pulse Ox
98.0 F 85 16 129/76 95
05/01/24 07:30 05/01/24 09:20 05/01/24 07:30 05/01/24 09:20 05/01/24 08:45
Physical Exam
Physical Exam
Constitutional: No Acute Distress and Chronically Ill
Cardiovascular: Regular Rate, S1/S2 and Murmur (RUSB); Negative Rub
Pulmonary: Clear and Non Labored; Negative Wheezes, Rales or Rhonchi
Gastrointestinal: Soft, Non Tender, Non Distended and Normal Bowel Sounds
Skin: Warm and Dry; Negative Rash or Jaundice
Lab / Diagnostic Study Results
05/01/24 08:45
05/01/24 08:45
Abs Immat Gran (auto) 0.2 10^3/uL (0-0.05) H 04/30/24 12:57
Absolute Neuts (auto) 22.3 10^3/uL (1.4-6.5) H 04/30/24 12:57
Absolute Lymphs (auto) 2.2 10^3/uL (1.2-3.4) 04/30/24 12:57
Absolute Monos (auto) 0.7 10^3/uL (0.1-0.6) H 04/30/24 12:57
Absolute Basos (auto) 0.1 10^3/uL (0-0.2) 04/30/24 12:57
Immature Gran % 0.9 % (0-0.5) H 04/30/24 12:57
Neutrophils % 87.3 % (42.2-75.2) H 04/30/24 12:57
Lymphocytes % 8.8 % (20.5-51.1) L 04/30/24 12:57
Monocytes % 2.7 % (1.7-9.3) 04/30/24 12:57
Eosinophils % 0.1 % (0-6) 04/30/24 12:57
Basophils % 0.2 % (0-2) 04/30/24 12:57
PT 15.3 Sec (11.4-14.6) H 04/30/24 12:57
INR 1.23 04/30/24 12:57
Lactic Acid Cancelled 04/30/24 18:15
Microbiology Results
Micro:
04/30/24 14:33 Blood Culture - Pending
Blood/Venous
04/30/24 14:33 Influenza Types A & B (LUPE) - Final
Nasal Swab Negative for Influenza A & B, NAAT
Negative results must be combined with clinical observations
and patient history.
Nucleic Acid Amplification test (NAAT)performed on the
[employer] ID NOW platform.
Assessment / Plan
# Suspected Acute Pneumonia in Immunosuppressed host
# CLL on brukinsa
# Hypogammaglobulinemia on IVIG
- sputum culture, acapella
- blood cultures x2
- CT PE chest 04/30: dense consolidation with air bronchograms RUL, also consolidation in the RLL, no hilar or axllary lymphadenopathy - no evidence of angioinvasion on this study - discussed with solution manager radiologist dr cade, CTPE is timed slightly
earlier than CTA and would have expected to see angioinvasion if present.
- Progression to invasive aspergillosis is not ruled out, however patient seems to be clinically responding on rx for bacterial pneumonia. Given that hemoptysis is minimal, would start by obtaining routine sputum cultures, then additional workup
can be considered if no etiology IDd. I personally brought sputum sample to his RN to send down for culture.
- legionella and s pneumo urine antigens
- covid ag and influenza pcr negative
- continue zosyn - may be responding
# ABPA on treatment
- AEC 0.0 on arrival, last IgE was significantly improved outpatient at 479
- c/w itraconazole
- levels were checked outpatient and in range
- continue steroids - management per pulmonary - home dose was alternating 10 mg and 5 mg a day
# CLL
# unknown baseline WBC at this point
- currently remains on brukinsa - this drug is associated with opportunistic infections and infections in general; of note patient reports his baseline WBC count was normal before it was held for the initiation of ABPA treatment, it was held again
about 3-4 weeks ago when he had mild covid due to interactions with paxlovid
Care Review
Plan reviewed with: Nurse (sputum sample)
[2024-05-01 15:25] VITALS: BP 145/82
--- NOTE | 2024-05-01 16:18 | CON.PUL ---
Consultation
Consultation Request
Date/Time Consultation Requested: 05/01/2024
Date/Time Consultation Performed: 05/01/2024
Requesting Provider: Dr. Manzano
Performing Provider: Dr. Balta Oden
Reason for Consultation: Recurrent pneumonia
Medical History
-
History of Present Illness:
68-year-old man with history of CLL diagnosed in 2011 status post chemotherapy with recurrence in 2020 followed at [facility], on IVIG replacement for hypogammaglobulinemia, diagnosed with allergic bronchopulmonary aspergillosis.
Has history of recurrent pneumonias.
Most recently in the hospital in December 2023 with multifocal pneumonia. At that time also culture positive for Aspergillus in the sputum.
He was tentatively diagnosed with ABPA based on increased IgE, eosinophils etc. He was doing well with the steroids, itraconazole. Following with Dr. Pinto and also with Dr. Magallanes from infectious disease.
He has been compliant with medications.
Up until last Monday he was doing well. On Monday reports having fatigue, fevers and chills. Also shortness of breath.
Patient admitted through the emergency room on 04/30/2024. CT of the chest negative for pulmonary embolism, right middle lobe consolidation and left lower lobe consolidation which are new compared to prior.
Based on last ECW note 04/04/2024 patient was doing very well on low-dose prednisone taper.
Reports no GI symptoms.
His weight has been stable.
He is complaining of some retrosternal/right sided pain with deep inspiration and coughing.
Minimal hemoptysis.
This afternoon at 4:20 PM patient feels much better. Headache has resolved. Less short of breath.
Past Medical History
Past Medical History: Other (See assessment and plan)
Social History
Tobacco: Non-smoker
Alcohol: None
Drug: None
Personal:
Living: With Family
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
Family History
Family History: Reviewed & Not Pertinent
Allergies / Home Medications
Allergies
Allergy/AdvReac Type Severity Reaction Status Date / Time
cat dander Allergy WHEEZING Verified 04/30/24 12:52
immune globulin,gamma (IgG) Allergy WHEEZING Verified 04/30/24 12:52
human
Iodinated Contrast Media Allergy wheezing Verified 04/30/24 12:52
[IV Dye, Iodine Containing
Contrast ]
ragweed pollen Allergy WHEEZING Verified 04/30/24 12:52
Home Medications
�Medication �Instructions �Recorded �Confirmed �Last Taken �Type
ascorbic acid (vitamin C) 500 mg 500 mg PO DAILY Supplement 10/30/16 04/30/24 04/30/24 History
tablet (Vitamin C)
ezetimibe 10 mg tablet 10 mg PO QPM High cholesterol 10/30/16 04/30/24 04/29/24 History
levothyroxine 75 mcg tablet 75 mcg PO DAILY Thyroid 10/30/16 04/30/24 04/30/24 History
lorazepam 0.5 mg tablet 0.5 mg PO BID Mental Health/Anxiety 10/30/16 04/30/24 04/30/24 History
acyclovir 200 mg capsule 400 mg PO BID Infection 09/24/19 04/30/24 04/30/24 History
aspirin 81 mg tablet,delayed 81 mg PO DAILY Blood clot 09/24/19 04/30/24 04/30/24 History
release prevention/tx
metoprolol tartrate 25 mg tablet 25 mg PO BID Heart disease 09/24/19 04/30/24 04/30/24 History
albuterol sulfate 90 mcg/actuation 2 puff inhalation R Q4HPRN PRN 03/24/21 04/30/24 Unknown History
aerosol inhaler shortness of breath
multivitamin with folic acid 400 1 tab PO DAILY Supplement 04/30/21 04/30/24 04/30/24 History
mcg tablet (Tab-A-Charla)
albuterol sulfate 2.5 mg/3 mL 2.5 mg inhalation R BIDPRN PRN 01/26/24 04/30/24 01/25/24 History
(0.083 %) solution for nebulization sob/wheezing
amlodipine 5 mg tablet (Norvasc) 5 mg PO DAILY Blood Pressure 01/26/24 04/30/24 04/30/24 History
calcium carbonate 500 mg PO DAILY Supplement 01/26/24 04/30/24 04/30/24 History
fluticasone furoate 100 1 inh inhalation R DAILY 01/26/24 04/30/24 04/30/24 History
mcg-vilanterol 25 mcg/dose Lung/Breathing Issues
inhalation powder (Breo Ellipta)
guaifenesin 600 mg tablet, 600 - 1,200 mg PO BID 01/26/24 04/30/24 04/30/24 History
extended release 12 hr (Mucinex) Gastrointestinal Issue
kpmdwkxw-emghnu-orqit extract 5 3 cap PO BID Supplement 01/26/24 04/30/24 04/30/24 History
mg-6 mg-150 mg capsule (Fruit and
Vegetable Daily)
sulfamethoxazole 800 1 tab PO MOWEFR@0800 Infection 01/26/24 04/30/24 04/29/24 History
mg-trimethoprim 160 mg tablet
(Bactrim DS)
testosterone 50 mg/5 gram (1 %) 1 packet topical DAILY Hormonal 01/26/24 04/30/24 04/30/24 History
transdermal gel Agent
zanubrutinib 80 mg capsule 160 mg PO BID CLL 01/26/24 04/30/24 04/30/24 History
(Brukinsa)
zinc sulfate 25 mg zinc (110 mg) 25 mg PO DAILY Supplement 01/26/24 04/30/24 04/30/24 History
tablet
amoxicillin 500 mg capsule 2,000 mg PO DAILYPRN PRN prior to 04/30/24 04/30/24 Unknown History
procedure
cholecalciferol (vitamin D3) 50 50 mcg PO DAILY 04/30/24 04/30/24 04/30/24 History
mcg (2,000 unit) tablet
zhijnju-honajgjrae-BJV-caffeine 30 2 cap PO Q8HPRN PRN headache 04/30/24 04/30/24 Unknown History
mg-50 mg-325 mg-40 mg capsule
(Ascomp with Codeine)
dexamethasone 4 mg tablet 4 mg PO USEASDIRECTD 04/30/24 04/30/24 Unknown History
itraconazole 100 mg capsule 200 mg PO BID 04/30/24 04/30/24 04/30/24 History
prednisone 10 mg tablet 5 mg PO Q48H 04/30/24 04/30/24 04/29/24 History
prednisone 10 mg tablet 10 mg PO Q48H 04/30/24 04/30/24 04/30/24 History
Review of Systems
-
History Source: Patient
All other systems: Negative unless noted
Vitals / Labs / Diagnostic Testing
Vital Signs
Temp Pulse Resp BP Pulse Ox
98.1 F 79 18 145/82 96
05/01/24 15:25 05/01/24 15:25 05/01/24 15:25 05/01/24 15:25 05/01/24 15:25
Lab Data
05/01/24 08:45
05/01/24 08:45
Microbiology
05/01/24 15:15 Sputum Gram Stain - Preliminary
04/30/24 14:33 Blood/Venous Blood Culture - Preliminary
No Growth in 24 hours- Final report to follow
04/30/24 14:33 Nasal Swab Influenza Types A & B (LUPE) - Final
Negative for Influenza A & B, NAAT
Negative results must be combined with clinical observations
and patient history.
Nucleic Acid Amplification test (NAAT)performed on the
[employer] platform.
Diagnostic Testing:
Physical Exam
-
HEENT: Normocephalic
Cardiovascular: S1/S2
Respiratory: Rales (Bibasilar) and Non-Labored Respirations
GI: Soft and Non Distended
Neurology: Awake and Alert
Skin: Warm
General: Comfortable
Assessment
-
Suspect bacterial pneumonia:
CT chest reviewed right middle lobe consolidation/left lower lobe new infiltrate with air bronchograms.
Leukocytosis/fever
Pleuritic type chest pain
History of recent COVID status post Paxlovid
Conditions present prior to admission
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
Increased IgE 3301 01/27/2024
History of recurrent pneumonia
Hypertension/hyperlipidemia
History of CLL, IVIG [id number] ([facility])
chronic Zanubrutinib (Lula/Antonio)
History of sleep apnea, not using CPAP
S/p aortic valve replacement, CAB x 2018
Hypothyroidism
History of thyroid cancer status post thyroidectomy
History of hepatitis A
Diverticulitis status post sigmoidectomy with colostomy 2020
Colostomy reversal 2021
Family history of CLL
Assessment and plan:
Clinical picture, acute onset fevers, chills, leukocytosis, rapidly developing infiltrate suggest bacterial pneumonia.
I doubt invasive aspergillosis.
Currently not bronchospastic
Leukocytosis improving with antibiotics suggest bacterial infection
Patient clinically feels better.
Fever trending lower.
Sputum culture
Secretion clearance
Symbicort in place of Breo
No indication for high-dose systemic corticosteroids. Continue outpatient prednisone tapering dose.
Has been using Itraconazole in the outpatient setting-okay to continue.
Discussed with infectious disease, given clinical improvement with antibiotics within 24 hours continue with current care, wait for sputum culture
No indication for bronchoscopic approach/transbronchial biopsies etc. at this point.
Will add Acapella device
-
Chest pain likely pleuritic in the setting of atelectasis and coughing.
Antitussives
Symptomatic management
-
History of CLL:Diagnosis since 2007, had chemotherapy sessions, on Brukinsa, takes 2 tablets in the morning and evening
Brukinsa stopped recently when patient had COVID few weeks ago.
Okay to hold for now while in the hospital.
Mild thrombocytopenia noted, follow CBC
-
Above discussed with patient and in detail by Dr. Oden 05-19.
Discussed with primary team and infectious disease as well.
-

Imaging reviewed:
CT chest 04/30/2024: Compared to December 2023.
No evidence of central pulmonary embolism.
Large dense consolidation with air bronchograms in the right upper lobe with some volume loss extending to the anterior right hilum most likely representing pneumonia. Central mass/malignancy with postobstructive component cannot be entirely
excluded. Recommend short-term follow-up Chest CT to confirm resolution.
Small bilateral lower lobe areas of 'consolidation with air bronchograms most likely representing subsegmental atelectasis. Pneumonia, particularly in the left lower lobe cannot be excluded.
Approximate 1.3 cm slightly irregular focal opacity in the left lower lobe, which may be inflammatory/infectious. Malignancy cannot be excluded.
Resolution of approximate 0.8 cm nodular opacity in the left upper lobe in the interval since prior study.
[2024-05-01 16:30] LABS: Glucose - Point of Care 150 mg/dl (70-99)
--- NOTE | 2024-05-01 16:32 | CM ---
Alert awake oriented patient who lives with his Dede who lives in a 2 story home with 2 step to enter and 13 steps to bed and bathroom. He is independent in all activities of daily living.No adaptive devices.
[facility] hx /No SNF hx
Pharmacy [facility] [place]
PCP DR Gonsalez
PLAN Home no anticipated needs
[2024-05-01] MEDS: GLUCOPHAGE 500 MG PO (17:14)
[2024-05-01] MEDS: ZETIA 10 MG PO (17:14)
[2024-05-01] MEDS: SYMBICORT 160/4.5 MCG INHALER 2 PUFF INH (19:41)
[2024-05-01] MEDS: NON-FORMULARY ITEM 160 MG PO (20:52)
[2024-05-01 21:10] LABS: Glucose - Point of Care 91 mg/dl (70-99)
[2024-05-01 23:11] VITALS: BP 135/74
[2024-05-02] MEDS: ZOSYN 100 IV ×4 (03:38→22:48)
[2024-05-02] MEDS: SYNTHROID 75 MCG PO (04:48)
--- NOTE | 2024-05-02 06:50 | W.PN.HOSP.TC ---
Addendum entered and electronically signed by Alex Manzano MD 05/02/24 13:59:
CT chest
No evidence of central pulmonary embolism.
Large dense consolidation with air bronchograms in the right upper lobe with some volume loss extending to the anterior right hilum most likely representing pneumonia. Central mass/malignancy with postobstructive component cannot be entirely
excluded. Recommend short-term follow-up Chest CT to confirm resolution.
Small bilateral lower lobe areas of 'consolidation with air bronchograms most likely representing subsegmental atelectasis. Pneumonia, particularly in the left lower lobe cannot be excluded.
Approximate 1.3 cm slightly irregular focal opacity in the left lower lobe, which may be inflammatory/infectious. Malignancy cannot be excluded.
Resolution of approximate 0.8 cm nodular opacity in the left upper lobe in the interval since prior study.
1. Right upper lobe consolidation -rule out pneumonia
Sepsis -fever/leukocytosis
Immunocompromise state
History of chronic pulmonary aspergillosis
-Patient have x4 episodes of pneumonia this year
-In January patient was noted to having Aspergillus from get his growth on sputum, IgE level > 3000. [id number] in serum was negative
-Patient has been getting Itraconazole 200 mg twice daily and will continue that
-Patient came in with new fever/chills/leukocytosis of 25K with neutrophil dominant
-CT chest as above showing mainly right upper lobe consolidation also some infiltrative change on left lower lung
-Sputum culture ordered, f/u results
-Start patient on Zosyn 4.5 mg Q6h for now, patient has E. coli in the past never been diagnosed with Pseudomonas
-Maintain patient on prophylactic dose of Bactrim/acyclovir
-Continue home regimen of oral prednisone 10/5 mg alternate day
-Pulmonology and ID evaluated and input noted.
-F/u sputum culture report. f/u urine legionella/strep pneumonia antigen
2. CLL
-Burkinsa can give increased bleeding although patient wants to continue, will do for now
-will need to hold if clinically felt strong of PNA to be bacterial in origin
3. History of immunoglobulin deficiency
-Patient got IVIG on Monday, next infusion will be after 8 weeks
4. Hypothyroidism
-maintain on levothyroxine
Full code
Original Note:
Today's Communication/Plan
-
Follow sputum culture
Follow urine antigens for legionella and S.pneumonia
Continue zosyn
Assessment / Plan
Assessment / Plan
#IMPRESSION
Patient is a 68-year-old male known case of CLL since 2007 , has acquired hypogammaglobulinemia with 8 weekly IVIG transfusion,had recurrent pneumonia since July and was recently diagnosed with ABPA pneumonia in December 2023.Now presented with
moderate to severe back pain and new consolidation in right upper lobe with air bronchograms extending to right hilum, central mass/malignancy with postobstructive component cannot be entirely excluded.
#ASSESSMENT AND PLAN
# Right upper lobe consolidation secondary to pneumonia/abpa/mass
#. CLL
# History of immunoglobulin deficiency
#. Hypothyroidism
# Right upper lobe consolidation secondary to pneumonia/abpa/mass
Patient has new onset high-grade fever
Leukocytosis TLC 25
History of recurrent pneumonias throughout the year
January 2024 Aspergillus growth on sputum/IgE greater than 3000
Patient has been taking triple prophylaxis
On itraconazole trimethoprim/sulfamethoxazole, and acyclovir
pulmonology follow-up concern for recurrent aspergillus infection
CAT scan showed right upper lobe consolidation/central mass/pneumonia due to ABPA
Sputum culture ordered
Continue prophylactic drugs
Continue steroid tapering dose
Pulmonology consultation appreciated, based on the clinical picture and improvement in leukocytosis, fever with antibiotics suggest bacterial pneumonia picture.
No indication of high-dose steroids will continue outpatient prednisone tapering
Await for sputum culture
No indication for bronchoscopic approach/transbronchial biopsies at this point according to pulmonology.
Infectious disease consultation appreciated, obtain routine sputum cultures, and blood cultures.
Legionella and Streptococcus pneumonia urine antigens, continue Zosyn as patient's condition is improving in response to that.
Invasive aspergillosis not ruled out, wait for culture results, would proceed from there.
Follow sputum culture
follow urine legionella and strep. pneumonia antigens
#. CLL
Diagnosis since 2007, had chemotherapy sessions, currently on Brukinsa, takes 2 tablets in the morning and evening
Brukinsa stopped recently when patient had COVID few weeks ago
continue Brukinsa
Hold brukinsa in case of bleeding or severe infection
# History of immunoglobulin deficiency
Acquired secondary to CLL and immunosuppressants
Gets 8 weekly shots of IV immunoglobulin
Last dose on Monday, April 29, 2024
-
#. Hypothyroidism
Secondary to thyroid nodule/cancer
Patient had thyroid lobectomy
On maintenance levothyroxine
Acute perforated sigmoid diverticulitis - s/p Exp Lap, sigmoid resection and end colostomy (Ritesh procedure) 03/24/21.
Coronary artery disease status post CABG-
COPD-Continue Breo-Continue levalbuterol
Essential HTN
Hypogonadism-continue testosterone
Full code
Dvt prophylaxis
Anticipated Discharge: 24 - 48 hours
Subjective/Interval History
-
Date of Service: May 02, 2024
Patient has no active issues, afebrile since admission, cough with yellowish sputum and specks of blood intermittently.
Objective Data
-
Labs:
Laboratory Results
05/02/24
06:00
WBC Pending
Hgb Pending
Hct Pending
Plt Count Pending
Sodium Pending
Potassium Pending
Chloride Pending
Carbon Dioxide Pending
BUN Pending
Creatinine Pending
Glucose Pending
Calcium Pending
Vital Signs:
Vital Signs
Temp Pulse Resp BP Pulse Ox
97.7 F 70 19 135/74 94
05/01/24 23:11 05/01/24 23:11 05/01/24 23:11 05/01/24 23:11 05/01/24 23:11
I&O
04/30/24 05/01/24 05/02/24
06:59 06:59 06:59
Intake Total 240 / 240 680 / 680
Balance 240 / 240 680 / 680
Review of Systems
-
All other systems: Reviewed and negative
Physical Exam
-
General: Well Developed, Well Nourished, No Apparent Distress and Comfortable
HEENT: Normocephalic, Atraumatic and Ears Appear Normal
Respiratory: Clear to Auscultation, Rales and Decreased Breath Sounds
Cardiac: Regular Rhythm and S1/S2
GI: Soft, Nontender, Nondistended and Normal Bowel Sounds
Genito-urinary: No Costovertebral Tender
Musculoskeletal: No Clubbing, No Cyanosis and No Edema
Skin: Warm and Dry
Neuro: Awake, Alert and Oriented
Hematologic / Lymphatic: No Lymphadenopathy
Psych: Calm
[2024-05-02 07:12] VITALS: BP 153/78
[2024-05-02] MEDS: SYMBICORT 160/4.5 MCG INHALER 2 PUFF INH ×2 (07:32→19:41)
[2024-05-02 07:57] LABS: Glucose - Point of Care 120 mg/dl (70-99)
[2024-05-02 09:03] LABS: Hematocrit 42.4 % (39.0-52.0); Hemoglobin 14.2 g/dL (13.0-18.0); Mean Corp Hgb Conc. 33.5 g/dL (33.0-37.0); Mean Corpuscular Hgb 29.6 pg (27.0-31.0); Mean Corpuscular Volume 88.5 fL (80.0-94.0); Mean Platelet Volume 11.9 fL (7.4-10.4); Platelet Count 124 10^3/uL (130-400); Red Blood Cell Count 4.79 10^6/uL (4.70-6.10); Red Cell Dist. Width 14.4 % (11.5-14.5)
[2024-05-02 09:15] LABS: Blood Urea Nitrogen 22 mg/dl (9-20); Carbon Dioxide 29 mmol/L (22-30); Chloride 104 mmol/L (98-107); Estimated Creatinine Clearance 79 ml/min; Glucose 116 mg/dl (70-99); Potassium 3.5 mmol/L (3.5-5.1); Sodium 145 mmol/L (135-145); eGFR > 60.00
[2024-05-02] MEDS: NON-FORMULARY ITEM 80 MG PO (09:16)
[2024-05-02] MEDS: DELTASONE 10 MG PO (09:17)
[2024-05-02] MEDS: SPORANOX 200 MG PO ×2 (09:17→21:54)
[2024-05-02] MEDS: LOPRESSOR 25 MG PO ×2 (09:17→22:01)
[2024-05-02] MEDS: ASPIR LOW (ENTERIC COATED) 81 MG PO (09:17)
[2024-05-02] MEDS: ZOVIRAX 400 MG PO ×2 (09:17→21:54)
[2024-05-02] MEDS: GLUCOPHAGE 500 MG PO ×2 (09:17→17:08)
[2024-05-02] MEDS: NORVASC 5 MG PO (09:18)
[2024-05-02] MEDS: ATIVAN 0.5 MG PO ×2 (09:18→21:59)
[2024-05-02 10:03] VITALS: BMI 25.1
--- NOTE | 2024-05-02 11:11 | W.PN.PUL3 ---
Today's Communication / Plan
-
clinically improved
Continue current antibiotics
Follow cultures
Hopefully discharge in the next 24 hours pending cultures
Assessment
-
68-year-old man with past medical history noted. Readmitted with acute onset fever, chills, cough and shortness of breath since Monday. Found to have new bilateral infiltrates. Leukocytosis and fevers. We were consulted for evaluation of
recurrent pneumonia in the setting of immunosuppression.
Bacterial pneumonia:-Recurrent.
CT chest reviewed right middle lobe consolidation/left lower lobe new infiltrate with air bronchograms.
Leukocytosis/fever
Pleuritic type chest pain
History of recent COVID status post Paxlovid
Conditions present prior to admission
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
Increased IgE 3301 01/27/2024
History of recurrent pneumonia
Hypertension/hyperlipidemia
History of CLL, IVIG [id number] ([place])
chronic Zanubrutinib ([place])
History of sleep apnea, not using CPAP
S/p aortic valve replacement, CAB x 2018
Hypothyroidism
History of thyroid cancer status post thyroidectomy
History of hepatitis A
Diverticulitis status post sigmoidectomy with colostomy 2020
Colostomy reversal 2021
Family history of CLL
Assessment and plan:
Clinical picture, acute onset fevers, chills, leukocytosis, rapidly developing infiltrate suggest bacterial pneumonia.
I doubt invasive aspergillosis.
Currently not bronchospastic
Clinically improving 05/02/2024. Improved leukocytosis, afebrile. Feels much better.
Leukocytosis improving with antibiotics suggest bacterial infection
Sputum culture-pending
Continue secretion clearance
Symbicort in place of Breo
No indication for high-dose systemic corticosteroids. Continue outpatient prednisone tapering dose.
Has been using Itraconazole in the outpatient setting-okay to continue.
Continue antibiotics per infectious disease-, given clinical improvement with antibiotics within 24 hours continue with current care, wait for sputum culture
No indication for bronchoscopic approach/transbronchial biopsies etc. at this point.
Continue Acapella device
-
Chest pain likely pleuritic in the setting of atelectasis and coughing.
Antitussives
Symptomatic management
-
History of CLL:Diagnosis since 2007, had chemotherapy sessions, on Brukinsa, takes 2 tablets in the morning and evening
Brukinsa stopped recently when patient had COVID few weeks ago.
Okay to hold for now while in the hospital.
Mild thrombocytopenia noted, follow CBC
-
Above discussed with patient and in detail by Dr. Oden 05/01/2024 and 05/02/2024.
Case discussed with primary team as well.
Hopefully discharge in the next 24 hours once all cultures are resulted

Imaging reviewed:
CT chest 04/30/2024: Compared to December 2023.
No evidence of central pulmonary embolism.
Large dense consolidation with air bronchograms in the right upper lobe with some volume loss extending to the anterior right hilum most likely representing pneumonia. Central mass/malignancy with postobstructive component cannot be entirely
excluded. Recommend short-term follow-up Chest CT to confirm resolution.
Small bilateral lower lobe areas of 'consolidation with air bronchograms most likely representing subsegmental atelectasis. Pneumonia, particularly in the left lower lobe cannot be excluded.
Approximate 1.3 cm slightly irregular focal opacity in the left lower lobe, which may be inflammatory/infectious. Malignancy cannot be excluded.
Resolution of approximate 0.8 cm nodular opacity in the left upper lobe in the interval since prior study.
Subjective Data
-
Date of Service:
Date of Service: May 02, 2024
Chief Complaint: Pulmonary Follow Up (Pneumonia)
Subjective:
Clinically feels better
Afebrile overnight
No significant hemoptysis or phlegm production
Denies any significant GI symptoms
Tolerating IV antibiotics
Review of Systems
Cardiopulmonary: Dyspnea (Improved) and Cough (Improved)
GI: Abdominal Pain (n), Nausea (n) and Vomiting (n)
Objective Data
Data Reviewed
Vital Signs / I&O / Oxygen:
Vital Signs
Temp Pulse Resp BP Pulse Ox
98 F 76 16 153/78 96
05/02/24 07:12 05/02/24 09:17 05/02/24 07:35 05/02/24 09:17 05/02/24 09:45
Intake and Output
05/01/24 05/02/24 05/03/24
06:59 06:59 06:59
Intake Total 240 / 240 680 / 680
Balance 240 / 240 680 / 680
SaO2 96
Physical Exam
General: Comfortable
HEENT: Normocephalic
Cardiovascular: S1-S2
Respiratory: Clear and Non-Labored Respirations
GI: Soft and Non Distended
Neurology: Awake, Alert and No Motor Deficits
Labs/Micro/Reports
Lab Data
05/02/24 07:21
05/02/24 07:21
Microbiology
05/01/24 15:15 Sputum Respiratory Culture - Preliminary
Usual Respiratory Delores
05/01/24 15:15 Sputum Gram Stain - Preliminary
04/30/24 14:33 Blood/Venous Blood Culture - Preliminary
No Growth in 24 hours- Final report to follow
04/30/24 14:33 Nasal Swab Influenza Types A & B (LUPE) - Final
Negative for Influenza A & B, NAAT
Negative results must be combined with clinical observations
and patient history.
Nucleic Acid Amplification test (NAAT)performed on the
[employer] platform.
--- NOTE | 2024-05-02 11:21 | W.PN.ID1 ---
Date of Service
Date of Service: May 02, 2024
Today's Communication
-At time of discharge, transition to cefuroxime 500mg po bid plus doxycycline 100mg po bid through 05/08/24.
Assessment / Plan
# CAP
#Immunosuppressed host
CLL on brukinsa
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
- sputum culture :usual resp sera
- blood cultures x2
-Leukocytosis resolved
- CT PE chest 04/30: dense consolidation with air bronchograms RUL, also consolidation in the RLL, no hilar or axllary lymphadenopathy - no evidence of angioinvasion on this study - discussed with computer numerical control programmer radiologist dr cade, CTPE is timed slightly
earlier than CTA and would have expected to see angioinvasion if present.
- legionella and s pneumo urine antigens negative (not sensitive tests).
- covid ag and influenza pcr negative
- Add doxycycline to Zosyn.
-At time of discharge, transition to cefuroxime 500mg po bid plus doxycycline 100mg po bid through 05/08/24.
# ABPA on treatment
- AEC 0.0 on arrival, last IgE was significantly improved outpatient at 479
- c/w itraconazole
- levels were checked outpatient and in range
- continue steroids - management per pulmonary - home dose was alternating 10 mg and 5 mg a day
- keep follow-up appt with me in 2 weeks.
# COVID mild infection 3 weeks ago treated with Paxlovid
Chief Complaint
-: Pneumonia
Subjective / Review of Systems
Feeling improved.
Cough decreased.
Still with pleurutic right upper chest pain.
Vital Signs / Physical Exam
Vital Signs
Vital Signs
Temp Pulse Resp BP Pulse Ox
98 F 76 16 153/78 96
05/02/24 07:12 05/02/24 09:17 05/02/24 07:35 05/02/24 09:17 05/02/24 09:45
Physical Exam
Constitutional: No Acute Distress and Comfortable
Eyes: Sclera Anicteric
Cardiovascular: Regular Rate and S1/S2
Pulmonary: Clear
Gastrointestinal: Soft, Non Tender, Non Distended and Normal Bowel Sounds
Extremities: Negative Edema
Neurological: AO x 3
Objective Data
Lab Data
Lab Results
05/02/24 07:21
05/02/24 07:21
PT 15.3 Sec (11.4-14.6) H 04/30/24 12:57
INR 1.23 04/30/24 12:57
APTT 36.6 Sec (23.4-35.0) H 04/30/24 12:57
Estimated Creat Clear 79 ml/min 05/02/24 07:21
Lactic Acid Cancelled 04/30/24 18:15
Total Bilirubin 1.1 mg/dl (0.2-1.3) 04/30/24 12:57
AST 21 U/L (17-59) 04/30/24 12:57
ALT 19 U/L (0-50) 04/30/24 12:57
Alkaline Phosphatase 98 U/L (38-126) 04/30/24 12:57
Most recent labs reviewed.
Micro Results:
05/02/24 10:19 Legionella Urinary Antigen - Final
Urine Negative for Legionella pneumophila Serogroup 1 antigen.
A negative result does not rule out the possiblity of
Legionella infection due to other serogroups or species of
Legionella. Clinical correlation is recommended.
Streptococcus pneumoniae Antigen (M - Final
Negative for Streptococcus pneumoniae antigen.
A negative result does not exclude infection with
Streptococcus pneumoniae. Clinical correlation is
recommended.
05/01/24 15:15 Respiratory Culture - Preliminary
Sputum Usual Respiratory Sera
Gram Stain - Preliminary
05/01/24 15:31 Blood Culture - Pending
Blood/Venous
04/30/24 14:33 Blood Culture - Preliminary
Blood/Venous No Growth in 24 hours- Final report to follow
04/30/24 14:33 Influenza Types A & B (LUPE) - Final
Nasal Swab Negative for Influenza A & B, NAAT
Negative results must be combined with clinical observations
and patient history.
Nucleic Acid Amplification test (NAAT)performed on the
[employer] platform.
[2024-05-02 12:06] LABS: Glucose - Point of Care 113 mg/dl (70-99)
[2024-05-02] MEDS: VIBRAMYCIN 100 MG PO ×2 (12:16→21:54)
[2024-05-02 15:38] VITALS: BP 126/76
[2024-05-02 16:48] LABS: Glucose - Point of Care 135 mg/dl (70-99)
[2024-05-02] MEDS: ZETIA 10 MG PO (17:08)
[2024-05-02 21:16] LABS: Glucose - Point of Care 109 mg/dl (70-99)
[2024-05-02] MEDS: NON-FORMULARY ITEM 160 MG PO (22:04)
[2024-05-02 23:19] VITALS: BP 153/83
[2024-05-03] MEDS: VISBIOME 2 CAP PO (01:05)
[2024-05-03] MEDS: ZOSYN 100 IV ×2 (05:11→09:36)
[2024-05-03] MEDS: SYNTHROID 75 MCG PO (05:55)
[2024-05-03 07:25] VITALS: BP 146/78
[2024-05-03 07:40] VITALS: BP 146/78
[2024-05-03] MEDS: SYMBICORT 160/4.5 MCG INHALER 2 PUFF INH (07:41)
[2024-05-03 07:49] LABS: Hemoglobin 13.5 g/dL (13.0-18.0); Mean Corp Hgb Conc. 33.8 g/dL (33.0-37.0); Mean Corpuscular Hgb 29.2 pg (27.0-31.0); Mean Corpuscular Volume 86.6 fL (80.0-94.0); Mean Platelet Volume 11.8 fL (7.4-10.4); Platelet Count 130 10^3/uL (130-400); Red Blood Cell Count 4.62 10^6/uL (4.70-6.10); Red Cell Dist. Width 14.1 % (11.5-14.5); White Blood Cell Count 11.3 10^3/uL (4.8-10.8)
[2024-05-03 08:13] LABS: Glucose - Point of Care 116 mg/dl (70-99)
[2024-05-03] MEDS: ZOVIRAX 400 MG PO (08:13)
[2024-05-03] MEDS: LOPRESSOR 25 MG PO (08:13)
[2024-05-03] MEDS: VIBRAMYCIN 100 MG PO (08:13)
[2024-05-03] MEDS: VISBIOME 1 CAP PO (08:13)
[2024-05-03] MEDS: SPORANOX 200 MG PO (08:13)
[2024-05-03] MEDS: DELTASONE 5 MG PO (08:14)
[2024-05-03] MEDS: ATIVAN 0.5 MG PO (08:14)
[2024-05-03] MEDS: NORVASC 5 MG PO (08:14)
[2024-05-03] MEDS: ASPIR LOW (ENTERIC COATED) 81 MG PO (08:14)
[2024-05-03] MEDS: BACTRIM DS 800 MG/160 MG 1 TABLET PO (08:14)
[2024-05-03] MEDS: GLUCOPHAGE 500 MG PO (08:14)
[2024-05-03 08:15] LABS: ALT (SGPT) 21 U/L (0-50); AST (SGOT) 21 U/L (17-59); Albumin 3.7 g/dl (3.5-5.0); Alkaline Phosphatase 106 U/L (38-126); Blood Urea Nitrogen 23 mg/dl (9-20); Carbon Dioxide 29 mmol/L (22-30); Chloride 103 mmol/L (98-107); Estimated Creatinine Clearance 79 ml/min; Glucose 115 mg/dl (70-99); Potassium 3.8 mmol/L (3.5-5.1); Sodium 143 mmol/L (135-145); eGFR > 60.00
[2024-05-03] MEDS: NON-FORMULARY ITEM 160 MG PO (08:18)
--- NOTE | 2024-05-03 08:37 | W.DCSUMMARY ---
Discharge Summary
Discharge Data
Date of Admission: 04/30/24
Date of Discharge: 05/03/24
-
Pending Results: No
Hospital Course
Discharging Physician :Alex Arrington, Jeremiah López
Disposition : Home
Primary care physician : Irwin Kay
Principal Discharge diagnosis :Presumed Bacterial Pneumonia
Chronic Discharge diagnosis : CLL, Hypogammaglobulenemia, Migraines, Hypertension, ABPA,Asthma, Hyperlipidemia,Hypothyroidism,hypogonadism
Hospital Course :
Mr. Ward is a 68-year-old male who is a known case of chronic lymphocytic leukemia since 2007, acquired hypogammaglobulinemia, had recurrent pneumonia since July 2023 and was recently diagnosed with ABPA pneumonia in December 2023.
During last admission 3 months ago for hemoptysis , Aspergillus fumigate was isolated in his sputum ,acute eosinophilic count was 1.2 at its highest and total IgE was greater than 3000. He was planned for itraconazole for 4 months and steroid taper
over 2 to 3 months. He was getting his monthly LFTs and was tolerating itraconazole well .On March IgE went down to 479 ,AEC 0.0 on arrival and his ABPA was improving.
During his admission on April 30, 2024 there was an abrupt onset of high-grade fever with chills and a yellowish sputum with specks of blood .He also complained of pleuritic chest pain but denied any shortness of breath.
Patient had a CAT scan done in the emergency department on April 30, 2024 that showed dense consolidation with air bronchograms in right upper lobe that was extending to the right hilum with lung volume loss. There was also consolidation in the
left lower lobe. Infectious diseases and pulmonology department was involved in the care of the patient.Patient was started on Zosyn that helped in fighting the infection and leukocytosis was resolved. He became afebrile and responded well to the
antibiotic. Urinary test for Legionella antigen and Streptococcus pneumonia antigen was negative. Sputum culture showed normal respiratory sera. Patient feels well and is okay to complete oral antibiotic course of cefuroxime 500 mg twice daily
and doxycycline 100 mg twice daily through May 08, 2024 at home. Patient will have a follow-up visit with his primary care physician and field research assistant to guide further management.
Important imaging findings :
CT CHEST IMPRESSION:
No evidence of central pulmonary embolism.
Large dense consolidation with air bronchograms in the right upper lobe with some volume loss extending to the anterior right hilum most likely representing pneumonia. Central mass/malignancy with postobstructive component cannot be entirely
excluded. Recommend short-term follow-up Chest CT to confirm resolution.
Small bilateral lower lobe areas of 'consolidation with air bronchograms most likely representing subsegmental atelectasis. Pneumonia, particularly in the left lower lobe cannot be excluded.
Approximate 1.3 cm slightly irregular focal opacity in the left lower lobe, which may be inflammatory/infectious. Malignancy cannot be excluded.
Resolution of approximate 0.8 cm nodular opacity in the left upper lobe in the interval since prior study.
Discharge Plan
-
Patient Disposition: Home (Routine Discharge)
Discharge Diagnosis/Procedures: Presumed Bacterial Pneumonia/CLL/Hypogammaglobulinemia
Condition: Fair
Diet: As tolerated
Activity: As tolerated
Driving Restrictions: As prior to admission
Bathing Restrictions: None
Referrals:
Irwin Kay MD [Family Provider] - in one week
Bebeto Pinto MD [Active] - in two to three weeks (May see GEOTHERMAL SYSTEM INSTALLER)
Prescriptions:
New
cefuroxime axetil 500 mg tablet
500 mg PO BID 5 Days Qty: 10 0RF
doxycycline hyclate 100 mg Capsule
100 mg PO Q12 Qty: 11 0RF
Continued
levothyroxine 75 MCG tablet
75 mcg PO DAILY
lorazepam 0.5 MG tablet
0.5 mg PO BID
Patient Comments:
04/30/2024: last filled 04/08/24, 60 tabs for 30 days from [id number]
ezetimibe 10 MG tablet
10 mg PO QPM
ascorbic acid (vitamin C) [Vitamin C] 500 MG tablet
500 mg PO DAILY
aspirin 81 MG tablet,delayed release (DR/EC)
81 mg PO DAILY
acyclovir 200 MG capsule
400 mg PO BID
metoprolol tartrate 25 MG tablet
25 mg PO BID
albuterol sulfate 1 PUFF HFA aerosol inhaler
2 puff inhalation R Q4HPRN PRN (Reason: shortness of breath)
multivitamin with folic acid [Tab-A-Charla] 1 TABLET tablet
1 tab PO DAILY
albuterol sulfate 2.5 mg /3 mL (0.083 %) Solution For Nebulization
2.5 mg INHALATION R BIDPRN PRN (Reason: sob/wheezing)
zinc sulfate 25 mg zinc (110 mg) Tablet
25 mg PO DAILY
sulfamethoxazole-trimethoprim [Bactrim DS] 800-160 mg Tablet
1 tab PO MOWEFR@0800
calcium carbonate 500 mg calcium (1,250 mg) Tablet
500 mg PO DAILY
Fruit and Vegetable Daily 5-6-150 mg Capsule
3 cap PO BID
testosterone 50 mg/5 gram (1 %) gel
1 packet topical DAILY
fluticasone furoate-vilanterol [Breo Ellipta] 100-25 mcg/dose Blister With Device
1 inh INHALATION R DAILY
guaifenesin [Mucinex] 600 mg Tablet Extended Release 12hr
600 - 1,200 mg PO BID
Brukinsa 80 mg Capsule
160 mg PO BID
amlodipine [Norvasc] 5 mg Tablet
5 mg PO DAILY
prednisone 10 mg tablet
5 mg PO Q48H
fojunsy-tthezuotdl-HAF-caff [Ascomp with Codeine] 36-53-218-40 mg capsule
2 cap PO Q8HPRN PRN (Reason: headache)
Patient Comments:
04/30/2024: last filled 04/26/24, 90 tabs for 15 days from [id number]
dexamethasone 4 mg Tablet
4 mg PO USEASDIRECTD
Patient Comments:
04/30/2024: Take 1 tablet the day before, night before, and day of procedure
itraconazole 100 mg capsule
200 mg PO BID
cholecalciferol (vitamin D3) 50 mcg (2,000 unit) Tablet
50 mcg PO DAILY
prednisone 10 mg tablet
10 mg PO Q48H
Discontinued
amoxicillin 500 mg Capsule
2,000 mg PO DAILYPRN PRN (Reason: prior to procedure)
Discharge Orders:
Discharge Patient (As Directed); Ordered 05/03/24
Ordered By: Alex Manzano
Discharge Date and Time
Discharge Date/Time: 05/03/24 11:40
Print Language: PORTUGUESE
[2024-05-03] MEDS: IMODIUM 2 MG PO (09:34)
[2024-05-03] MEDS: FLUAD (65 yr+) 2024-2025 FORMULA 0.5 ML IM (10:44)
--- NOTE | 2024-05-03 10:55 | PTCARENOTE ---
Reviewed discharge instructions with patient. Patient verbalizes understanding all instructions. Denies questions at this time. Peripheral IV removed. Flu vaccine administered as ordered. Patient awaiting his to bring clothes and transport home.
--- NOTE | 2024-05-03 12:34 | CM ---
MD entered order for discharge.
Offered VN he declined need.
AWife drove him home.
PLAn Home no needs
--- NOTE | 2024-05-03 13:57 | W.PN.UPDATE ---
Update Note
Progress Note Update
I saw and evaluated the patient. I reviewed the resident�s note and agree with findings and plan as documented in the resident�s note.
CT chest
No evidence of central pulmonary embolism.
Large dense consolidation with air bronchograms in the right upper lobe with some volume loss extending to the anterior right hilum most likely representing pneumonia. Central mass/malignancy with postobstructive component cannot be entirely
excluded. Recommend short-term follow-up Chest CT to confirm resolution.
Small bilateral lower lobe areas of 'consolidation with air bronchograms most likely representing subsegmental atelectasis. Pneumonia, particularly in the left lower lobe cannot be excluded.
Approximate 1.3 cm slightly irregular focal opacity in the left lower lobe, which may be inflammatory/infectious. Malignancy cannot be excluded.
Resolution of approximate 0.8 cm nodular opacity in the left upper lobe in the interval since prior study.
1. Right upper lobe consolidation -rule out pneumonia
Sepsis -fever/leukocytosis
Immunocompromise state
History of chronic pulmonary aspergillosis
-Patient have x4 episodes of pneumonia this year
-In January patient was noted to having Aspergillus from get his growth on sputum, IgE level > 3000. Aqbq-[id number] in serum was negative
-Patient has been getting Itraconazole 200 mg twice daily and will continue that
-Patient came in with new fever/chills/leukocytosis of 25K with neutrophil dominant
-CT chest as above showing mainly right upper lobe consolidation also some infiltrative change on left lower lung
-Sputum culture negative so far. Urinary legionella/strep antigen neg.
-Maintain patient on prophylactic dose of Bactrim/acyclovir
-Continue home regimen of oral prednisone 10/5 mg alternate day
-Patient having some diarrhea from Zosyn, transition to cefuroxime and doxycycline at discharge per ID recommendation
-Patient to follow-up with pulmonology in office in 4 to 6 weeks for repeat pulmonary imaging to confirm resolution
2. CLL
-Burkinsa can give increased bleeding although patient wants to continue, will do for now
-will need to hold if clinically felt strong of PNA to be bacterial in origin
3. History of immunoglobulin deficiency
-Patient got IVIG on Monday, next infusion will be after 8 weeks
4. Hypothyroidism
-maintain on levothyroxine
Full code
Discharge home
--- NOTE | 2024-05-03 15:02 | W.PN.HOSP.TC ---
Today's Communication/Plan
-
Discharge on oral cefuroxime 500 mg twice daily and doxycycline 100 mg twice daily
Assessment / Plan
Assessment / Plan
#IMPRESSION
Patient is a 68-year-old male known case of CLL since 2007 , has acquired hypogammaglobulinemia with 8 weekly IVIG transfusion,had recurrent pneumonia since July and was recently diagnosed with ABPA pneumonia in December 2023.Now presented with
moderate to severe back pain and new consolidation in right upper lobe with air bronchograms extending to right hilum, central mass/malignancy with postobstructive component cannot be entirely excluded.
#ASSESSMENT AND PLAN
# Right upper lobe consolidation secondary to pneumonia/abpa/mass
#. CLL
# History of immunoglobulin deficiency
#. Hypothyroidism
# Right upper lobe consolidation secondary to pneumonia/abpa/mass
Patient has new onset high-grade fever
Leukocytosis TLC 25 on admission on April 30, 2024
Leukocytosis resolved and is now within normal limits
History of recurrent pneumonias throughout the year
January 2024 Aspergillus growth on sputum/IgE greater than 3000
On April 29, 2024 patient had a follow-up visit with IgE levels at 479 and absolute eosinophilic count within normal limits
Patient has been taking triple prophylaxis
On itraconazole trimethoprim/sulfamethoxazole, and acyclovir
CAT scan showed right upper lobe consolidation/central mass/pneumonia due to ABPA
Sputum culture showed growth of normal respiratory sera
Urine analysis negative for Legionella antigen and Streptococcus pneumonia antigen
Continue prophylactic drugs
Continue steroid tapering dose
Pulmonology consultation appreciated, based on the clinical picture and improvement in leukocytosis, fever with antibiotics suggest bacterial pneumonia picture.
No indication of high-dose steroids will continue outpatient prednisone tapering
No indication for bronchoscopic approach/transbronchial biopsies at this point according to pulmonology.
Infectious disease consultation appreciated, sputum cultures show normal respiratory sera
Legionella and Streptococcus pneumonia urine antigens negative,
Can be discharged on oral cefuroxime 500 mg twice daily and oral doxycycline 100 mg twice daily
#. CLL
Diagnosis since 2007, had chemotherapy sessions, currently on Brukinsa, takes 2 tablets in the morning and evening
Brukinsa stopped recently when patient had COVID few weeks ago
continue Brukinsa
Hold brukinsa in case of bleeding or severe infection
# History of immunoglobulin deficiency
Acquired secondary to CLL and immunosuppressants
Gets 8 weekly shots of IV immunoglobulin
Last dose on Monday, April 29, 2024
-
#. Hypothyroidism
Secondary to thyroid nodule/cancer
Patient had thyroid lobectomy
On maintenance levothyroxine
Acute perforated sigmoid diverticulitis - s/p Exp Lap, sigmoid resection and end colostomy (Ritesh procedure) 03/24/21.
Coronary artery disease status post CABG-
COPD-Continue Breo-Continue levalbuterol
Essential HTN
Hypogonadism-continue testosterone
Full code
Dvt prophylaxis
Anticipated Discharge: Today
Subjective/Interval History
-
Date of Service: May 03, 2024
Complaint of 2 episodes of diarrhea yesterday evening on May 02, 2024.
Objective Data
-
Labs:
Laboratory Results
05/03/24
07:06
WBC 11.3 H
Hgb 13.5
Hct 40.0
Plt Count 130
Sodium 143
Potassium 3.8
Chloride 103
Carbon Dioxide 29
BUN 23 H
Creatinine 1.0
Glucose 115 H
Calcium 9.0
Total Bilirubin 1.0
AST 21
ALT 21
Alkaline Phosphatase 106
Vital Signs:
Vital Signs
Temp Pulse Resp BP Pulse Ox
97.4 F 85 16 146/78 95
05/03/24 07:40 05/03/24 08:00 05/03/24 08:00 05/03/24 07:40 05/03/24 08:00
I&O
05/02/24 05/03/24 05/04/24
06:59 06:59 06:59
Intake Total 680 / 680 1759
Balance 680 / 680 1759
Review of Systems
-
All other systems: Reviewed and negative
Physical Exam
-
General: Well Developed, Well Nourished, No Apparent Distress and Comfortable
HEENT: Normocephalic and Atraumatic
Respiratory: Clear to Auscultation and Rales
Cardiac: Regular Rhythm and S1/S2
GI: Soft, Nontender, Nondistended and Normal Bowel Sounds
Genito-urinary: No Costovertebral Tender
Musculoskeletal: No Clubbing, No Cyanosis and No Edema
Skin: Warm and Dry
Neuro: Awake, Alert and Oriented
Hematologic / Lymphatic: No Lymphadenopathy
Psych: Calm
== END 2024-05-03 11:40 | disposition home or self-care (01) | DRG 871 ==
LOC: 4 EAST ACU 18:22
PROVIDERS: Student in an Organized Health Care Education/Training Program; ADMITTING PHYSICIAN Hospitalist; CONSULT PHYSICIAN Internal Medicine; CONSULT PHYSICIAN Student in an Organized Health Care Education/Training Program; EMERGENCY PHYSICIAN Emergency Medicine; FAMILY PHYSICIAN Family Medicine
PROC: 3E02340 Introduction of Influenza Vaccine into Muscle, Percutaneous Approach (ICD-10-PCS; 2024-05-03)
DX: A41.9 Sepsis, unspecified organism (principal); J15.9 Unspecified bacterial pneumonia; B44.81 Allergic bronchopulmonary aspergillosis; C91.10 Chronic lymphocytic leukemia of B-cell type not having achieved remission; D80.1 Nonfamilial hypogammaglobulinemia; D84.821 Immunodeficiency due to drugs; J44.0 Chronic obstructive pulmonary disease with (acute) lower respiratory infection; E89.0 Postprocedural hypothyroidism; G43.909 Migraine, unspecified, not intractable, without status migrainosus; I10 Essential (primary) hypertension; D69.6 Thrombocytopenia, unspecified; G47.30 Sleep apnea, unspecified; J44.89 Other specified chronic obstructive pulmonary disease; E29.1 Testicular hypofunction; I25.10 Atherosclerotic heart disease of native coronary artery without angina pectoris; Z23 Encounter for immunization; Z11.52 Encounter for screening for COVID-19; Z95.2 Presence of prosthetic heart valve; Z92.21 Personal history of antineoplastic chemotherapy; Z90.49 Acquired absence of other specified parts of digestive tract; Z87.01 Personal history of pneumonia (recurrent); Z86.16 Personal history of COVID-19; Z85.850 Personal history of malignant neoplasm of thyroid; Z85.828 Personal history of other malignant neoplasm of skin; Z80.6 Family history of leukemia; Z79.890 Hormone replacement therapy; Z79.82 Long term (current) use of aspirin; Z88.8 Allergy status to other drugs, medicaments and biological substances; Z91.041 Radiographic dye allergy status; Z86.73 Personal history of transient ischemic attack (TIA), and cerebral infarction without residual deficits; Z95.1 Presence of aortocoronary bypass graft; Z79.899 Other long term (current) drug therapy; Z79.51 Long term (current) use of inhaled steroids
CPT/HCPCS: 71275; 80048; 80053; 82962; 83036; 83605; 85025; 85027; 85610; 85730; 87040; 87070; 87205; 87449; 87502; 87811; 87899; 90662; 93005; 94640; 96374; 96375; 99285; G0008; Q9967

== ENCOUNTER → 2024-07-05 10:55 | Outpatient (REF) | payer MEDICARE, OTHER, SELFPAY | LOC: RAD 10:55 | PROVIDERS: ATTENDING PHYSICIAN Internal Medicine Critical Care Medicine; FAMILY PHYSICIAN Family Medicine | DX: J18.9 Pneumonia, unspecified organism (principal) | CPT/HCPCS: 71046 ==

== ENCOUNTER → 2024-10-18 06:46 | Outpatient (REF) | payer MEDICARE, OTHER, SELFPAY | LOC: RCS 06:46 | PROVIDERS: ATTENDING PHYSICIAN Internal Medicine Cardiovascular Disease; FAMILY PHYSICIAN Family Medicine | DX: Z95.2 Presence of prosthetic heart valve (principal); I25.10 Atherosclerotic heart disease of native coronary artery without angina pectoris | CPT/HCPCS: 93306 ==

== ENCOUNTER 2025-02-02 17:03 | Inpatient (IN) | payer MEDICARE, OTHER, SELFPAY ==
[2025-02-02] VITALS (9 sets, daily range): BP systolic 107–139; BP diastolic 65–75; BMI 27.4; BMI 26.9
[2025-02-02 12:43] LABS: Hematocrit 45.4 % (39.0-52.0); Hemoglobin 15.4 g/dL (13.0-18.0); Mean Corp Hgb Conc. 33.9 g/dL (33.0-37.0); Mean Corpuscular Volume 89.2 fL (80.0-94.0); Platelet Count 118 10^3/uL (130-400); Red Cell Dist. Width 13.2 % (11.5-14.5)
[2025-02-02 13:07] LABS: ALT (SGPT) 25 U/L (0-50); AST (SGOT) 23 U/L (17-59); Albumin 4.0 g/dl (3.5-5.0); Alkaline Phosphatase 111 U/L (38-126); Blood Urea Nitrogen 21 mg/dl (9-20); Calcium 8.7 mg/dl (8.4-10.2); Carbon Dioxide 27 mmol/L (22-30); Chloride 103 mmol/L (98-107); Glucose 129 mg/dl (70-99); Nucleated Red Blood Cells % 0 % (-); Potassium 4.4 mmol/L (3.5-5.1); Sodium 138 mmol/L (135-145); Total Protein 6.4 g/dl (6.3-8.2); eGFR > 60.00
[2025-02-02 13:19] LABS: Troponin I 0.032 ng/ml
--- NOTE | 2025-02-02 14:19 | EDRN ---
Dr. Metz in room w/pt at this time.
--- NOTE | 2025-02-02 14:25 | ED.GENMED ---
History of Present Illness
General
Chief Complaint: Breathing Problem
Source: patient, records, spouse, previous radiology exam and previous hospital records
Exam Limitations: none
Time Seen by Provider: 02/02/25 14:14
Nursing documentation reviewed up to this point in time: agreed with
History of Present Illness
History of Present Illness:
69-year-old male CLL pulmonary aspergillosis followed by pulmonary infectious disease treated with Sporanox and steroids, for about 4 months admitted a year ago few weeks of cough past few days he has had fever chills productive sputum headache
fatigue
Past History
Past History
ED Past Medical History: Asthma, Cancer, COPD, HTN, Hypercholesterolemia, Other (CLL) and Other (Thyroid nodules, migraines, bicuspid valve leaks, pneumonia, hepatitis C, kidney stones, thyroid cancer, shingles, skin cancer, anemia hypogonadism)
ED Past Surgical History: Appendectomy, Bowel resection and Tonsilectomy
Social History
Tobacco: Non-smoker
Alcohol: Occasional
Drug: None
Personal:
Living: with family
Employment: Employed
Review of Systems
Review of Systems
All Other Systems: Not applicable
Constitutional: Reports fever, fatigue and chills
Respiratory: Reports cough; Denies hemoptysis
Neurological: Reports headache and weakness
Endocrine: Reports no symptoms
Hematologic/Lymphatic: Reports no symptoms
Phy Exam
Physical Exam
Physical Exam:
Physical Exam
General: 69-year-old male mild distress
Neck: No jaundice
Heart: s1/s2 regular rate and rhythm, no murmur. equal radial pulses.
Lungs: Wheeze and rhonchi left greater than right
Abdomen: Nontender
Neuro: alert and oriented. no focal neurological deficits
Skin: no rash
Psychiatric: well kept. interactive and cooperative
Extremities: no edema. no calf tenderness.
Scores
Heart Failure Risk
Heart Failure Risk Score: Not Applicable
Course
Orders/Labs/Results
Orders:
Orders
02/02/25 12:15
EKG [Electrocardiogram (*1)] Urgent
Reason for Study: Shortness of Breath
CR Chest - 2 Views Urgent
Comment:
Reason For Exam: cough
02/02/25 12:16
EKG- Treatment ONCE
02/02/25 12:33
Complete Blood Count/With Diff Urgent
Comprehensive Metabolic Panel Urgent
NT-proBNP Urgent
Troponin I Urgent
02/02/25 14:15
Sputum Culture [Respiratory Culture/Gram Stain] Urgent
DIALLO Source: Sputum
Specimen Description:
Date Specimen was Collected: 02/02/25
Time Specimen was Collected: 15:15
02/02/25 14:24
Acetaminophen [Tylenol] 650 mg PO NOW STA
Ipratropium/Albuterol Sulfate [Duoneb] 3 ml INH R NOW STA
02/02/25 14:25
0.9% Sodium Chloride 1000 ml [Nss] 1,000 ml IV BOLUS
02/02/25 14:32
INFECTIOUS DISEASE CONSULT Routine
Consulting Provider: Tree Oseguera
Was physician already notified: Yes
PULMONARY CONSULT Routine
Consulting Provider: Bebeto Pinto
Was physician already notified: Yes
02/02/25 15:51
Respiratory Culture/Gram Stain Routine
DIALLO Source: Sputum
Specimen Description:
Comment: routine as well as fungal stains and cultures
Ipratropium/Albuterol Sulfate [Duoneb] 3 ml INH R Q4HPRN PRN
Sodium Chloride 3% INH [Sodium Chloride 3% For Inhalation] 1 vial INH R Q4HPRN PRN
02/02/25 15:53
Rx Incentive Spirometry [RESP] Routine
Frequency: q1h while awake
Rx Pep / Acapela [RESP] Routine
02/02/25 15:59
IgE [S] Routine
02/02/25 16:00
CefTRIAXone [Rocephin] 1,000 mg IV Q24H
Ipratropium/Albuterol Sulfate [Duoneb] 3 ml INH R QID
MethylPREDNISolone PF [Solu-Medrol Pf] 60 mg IV Q8H
02/02/25 20:00
Doxycycline [Vibramycin] 100 mg PO Q12
Guaifenesin [Mucinex] 1,200 mg PO Q12
Itraconazole [Sporanox] 100 mg PO BID
Abnormal Lab Results
02/02/25
12:33
WBC 27.8 H 10^3/uL
(4.8-10.8)
Plt Count 118 L 10^3/uL
(130-400)
MPV 11.8 H fL
(7.4-10.4)
Abs Immat Gran (auto) 0.3 H 10^3/uL
(0-0.05)
Absolute Neuts (auto) 24.0 H 10^3/uL
(1.4-6.5)
Absolute Lymphs (auto) 1.1 L 10^3/uL
(1.2-3.4)
Absolute Monos (auto) 2.1 H 10^3/uL
(0.1-0.6)
Immature Gran % 1.2 H %
(0-0.5)
Neutrophils % 86.5 H %
(42.2-75.2)
Lymphocytes % 4.0 L %
(20.5-51.1)
BUN 21 H mg/dl
(9-20)
Glucose 129 H mg/dl
(70-99)
Total Bilirubin 2.0 H mg/dl
(0.2-1.3)
02/02/25 12:33
02/02/25 12:33
Vital Signs
Initial and Last Documented VS:
Initial Vital Signs
Temp Pulse Resp BP Pulse Ox
97.9 F 78 20 107/70 93
02/02/25 12:12 02/02/25 12:12 02/02/25 12:12 02/02/25 12:12 02/02/25 12:12
Last Documented Vital Signs
Temp Pulse Resp BP Pulse Ox
97.9 F 80 21 132/73 92
02/02/25 12:12 02/02/25 15:00 02/02/25 15:00 02/02/25 15:00 02/02/25 15:05
MDM/Problems Addressed
Differential Diagnosis Includes:
Pneumonia aspiration doubt PE immunocompromise host
MDM/Problems Addressed:
Cough sputum
Chronic conditions affecting care: Immunosuppressed
Acute Exacerbation and/or Progression of Chronic Illness: Immunosuppressed
*Radiology
Radiology exam reviewed: radiology read reviewed
*Pulse Oximetry
SaO2: 93
Oxygen Mode of Delivery: Room air
Patient hypoxic: yes
*EKG
Interpreted by ED Provider?: Yes
Interpretation: abnormal
Comparison EKG: no comparison EKG present
Heart Rate: 78
Rate: normal
Rhythm: sinus
Ischemia: non-specific ST changes
*Human Resources Designate Interpretation
Rate: normal
Interpretation: normal
Heart Rate: 88
*Critical Care Note
Total Time (30-74mins, 75-104mins- exclusive of procedures): 20
Update Note
Update Note:
2:30 PM update patient's hypoxic leukocytosis medically complex immunosuppressed believe it would be prudent to admit him to the hospital start nebs, check sputum culture, message sent to ID and pulmonary
Due to the complexity of illness and overall nontoxic appearance was a bit of a delay getting antibiotics ordered as it was not entirely sure if he should be treated for community-acquired and/or nosocomial and/or broad-spectrum antibiotics
ultimately pulmonary recommended community-acquired with antifungals and steroids
ED Attending Note
-
Portions of this chart may have been created with voice recognition software.� Occasional wrong word or��sound alike� substitutions may have occurred due to the inherent limitations of voice recognition software.
Discharge Plan
Departure
Patient Disposition: Admit
Date of Disposition: 02/02/25
Time of Disposition: 14:36
Admit to: Med/Surg
Presentation/result/management discussed w/ accepting MD/DO: Hospitalist
Patient with high blood pressure during this ER visit?: No
Condition: Fair
Discharge Problem:
Immunocompromised host pneumonia
Prescriptions:
No Action
levothyroxine 75 MCG tablet
75 mcg PO HS
lorazepam 0.5 MG tablet
0.5 mg PO BID
ezetimibe 10 MG tablet
10 mg PO HS
ascorbic acid (vitamin C) [Vitamin C] 500 MG tablet
500 mg PO DAILY
metoprolol tartrate 25 MG tablet
25 mg PO BID
sulfamethoxazole-trimethoprim [Bactrim DS] 800-160 mg Tablet
1 tab PO MOWEFR
Fruit and Vegetable Daily 5-6-150 mg Capsule
2 cap PO BID
testosterone 50 mg/5 gram (1 %) gel
1 packet topical DAILY
Patient Comments:
02/02/2025, apply to shoulder, upper arms, or abdomen daily; pt. applied to upper arms today (02/02/2025).
fluticasone furoate-vilanterol [Breo Ellipta] 100-25 mcg/dose Blister With Device
1 inh INHALATION R DAILY
guaifenesin [Mucinex] 600 mg Tablet Extended Release 12hr
600 mg PO BID
Brukinsa 80 mg Capsule
160 mg PO BID
amlodipine [Norvasc] 5 mg Tablet
5 mg PO DAILY
dexamethasone 4 mg Tablet
8 mg PO DIRECTED
Patient Comments:
02/02/2025, take 2 tablets BID the day before and 2 tablets the morning of the IVIG infusion.
cholecalciferol (vitamin D3) 50 mcg (2,000 unit) Tablet
50 mcg PO DAILY
Align
1 cap PO DAILY
multivitamin Tablet
1 tab PO DAILY
acyclovir 400 mg Tablet
400 mg PO Q12H
acetaminophen [Tylenol Extra Strength] 500 mg Tablet
1,000 mg PO Q8HPRN PRN (Reason: mild pain)
sildenafil 100 mg Tablet
100 mg PO DAILY PRN (Reason: ed)
calcium carbonate 200 mg calcium (500 mg) Tablet,Chewable
200 mg PO DAILY
furosemide 20 mg Tablet
20 mg PO MOWEFR
furosemide 20 mg Tablet
20 mg PO DAILY PRN (Reason: edema)
albuterol sulfate 90 mcg/actuation Hfa Aerosol Inhaler
2 puff INHALATION R Q4HPRN PRN (Reason: sob)
glucosamine-chondroitin [Osteo Bi-Flex] 250-200 mg Tablet
2 tab PO DAILY
alfuzosin 10 mg Tablet Extended Release 24 Hr
10 mg PO HS
tswymtgmam-zyexpuqqmjhyp-lrdi 50-300-40 mg Capsule
1 cap PO Q4H PRN (Reason: migraines)
Ivig Infusion
1 dose IV Q7W
Patient Comments:
02/02/2025, pt. gets this infusion through [facility] roughly every 7 weeks per pt.
Metamucil powder
1 tsp PO DAILY
zinc 30 mg tablet
30 mg PO DAILY
atorvastatin 40 mg Tablet
40 mg PO DAILY
Eliquis 5 mg Tablet
5 mg PO BID
Referrals:
Irwin Kay MD [Family Provider, Family Practice]
Interventions
Interventions:
*Risk Screen - Suicide Last Done: 02/02/25 12:12
*General Assessment Last Done: 02/02/25 12:12
*Neglect/Abuse Screening Last Done: 02/02/25 12:12
*ED- Fall Risk Assessment Last Done: 02/02/25 15:05
*ED COVID-19 Vaccine History Last Done: 02/02/25 12:12
ED- Cardiac Assessment Last Done: 02/02/25 15:05
ED- Pulmonary Assessment Last Done: 02/02/25 15:05
Discharge Date and Time
Print Language: GERMAN
[2025-02-02] MEDS: TYLENOL 650 MG PO (14:57)
[2025-02-02] MEDS: DUONEB 3 ML INH ×3 (15:00→20:22)
[2025-02-02] MEDS: NSS 1000 IV (15:13)
--- NOTE | 2025-02-02 15:19 | CON.PUL ---
Consultation
Consultation Request
Date/Time Consultation Requested: 02/02/2025-3:30 PM
Date/Time Consultation Performed: 02/02/2025-345 PM
Requesting Provider: hospitalist
Performing Provider: Dr. Pinto
Reason for Consultation: shortness of breath
Medical History
-
Chief Complaint: shortness of breath
History of Present Illness:
69-year-old never smoking male with underlying CLL, allergic bronchopulmonary aspergillosis, asthma, hypertension, hyperlipidemia, migraines, renal calculi, who was recently treated with 4 months of itraconazole and prednisone for ABPA flare and
now presents with similar symptoms including mucus production-pulmonary consulted for asthma/possible ABPA flare 02/02/2025. The patient had followed with Dr. Otero in [place]. Pinto. Prednisone was slowly tapered off. Itraconazole was completed after
4 months. His symptoms improved significantly. He has return of symptoms of chest congestion, some brown sputum production but no overt hemoptysis which he had the last time. Did not have any night sweats, loss of appetite, and has some shortness
of breath but no chest pain, pleurisy, abdominal pain, increased leg swelling or weakness.
Past Medical History
Past Medical History: None ( CLL diagnosed 2011 status post chemo with recurrence 2020-HUP/IVIG. ABPA treated with prednisone/itraconazole. Asthma. Multifocal pneumonia December 2023. CAD/CABG/AVR. Hypothyroid. Thyroid cancer/thyroidectomy.
Hepatitis A. Diverticulitis/sigmoidectomy colostomy/reversal 2021. EFREM. Renal ca)
Past Surgical History: None ( Melanoma. GERD. Tonsillectomy. Partial thyroidectomy. Bovine AVR/CABG 2018. Appendectomy 2020. Colostomy reversal 2021. Mohs procedure 2023.)
Social History
Tobacco: Non-smoker
Drug: None
Personal:
Living: With Family
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
Occupational Exposures: no known asbestos exposure
Environmental Exposures: no known tuberculosis exposure
Family History
Family History: Reviewed & Not Pertinent ( hypertension. CAD. Diabetes. CLL.)
Allergies / Home Medications
Allergies
Allergy/AdvReac Type Severity Reaction Status Date / Time
cat dander Allergy WHEEZING Verified 02/02/25 12:18
immune globulin,gamma (IgG) Allergy WHEEZING Verified 02/02/25 12:18
human
Iodinated Contrast Media (IV Allergy wheezing Verified 02/02/25 12:18
Dye, Iodine Containing
Contrast )
ragweed pollen Allergy WHEEZING Verified 02/02/25 12:18
Home Medications
�Medication �Instructions �Recorded �Confirmed �Last Taken �Type
ascorbic acid (vitamin C) 500 mg 500 mg PO DAILY Supplement 10/30/16 04/30/24 04/30/24 History
tablet (Vitamin C)
ezetimibe 10 mg tablet 10 mg PO QPM High cholesterol 10/30/16 04/30/24 04/29/24 History
levothyroxine 75 mcg tablet 75 mcg PO DAILY Thyroid 10/30/16 04/30/24 04/30/24 History
lorazepam 0.5 mg tablet 0.5 mg PO BID Mental Health/Anxiety 10/30/16 04/30/24 04/30/24 History
acyclovir 200 mg capsule 400 mg PO BID Infection 09/24/19 04/30/24 04/30/24 History
aspirin 81 mg tablet,delayed 81 mg PO DAILY Blood clot 09/24/19 04/30/24 04/30/24 History
release prevention/tx
metoprolol tartrate 25 mg tablet 25 mg PO BID Heart disease 09/24/19 04/30/24 04/30/24 History
albuterol sulfate 90 mcg/actuation 2 puff inhalation R Q4HPRN PRN 03/24/21 04/30/24 Unknown History
aerosol inhaler shortness of breath
multivitamin with folic acid 400 1 tab PO DAILY Supplement 04/30/21 04/30/24 04/30/24 History
mcg tablet (Tab-A-Charla)
albuterol sulfate 2.5 mg/3 mL 2.5 mg inhalation R BIDPRN PRN 01/26/24 04/30/2401/24/24 History
(0.083 %) solution for nebulization sob/wheezing
amlodipine 5 mg tablet (Norvasc) 5 mg PO DAILY Blood Pressure 01/26/24 04/30/24 04/30/24 History
calcium carbonate 500 mg PO DAILY Supplement 01/26/24 04/30/24 04/30/24 History
fluticasone furoate 100 1 inh inhalation R DAILY 01/26/24 04/30/24 04/30/24 History
mcg-vilanterol 25 mcg/dose Lung/Breathing Issues
inhalation powder (Breo Ellipta)
guaifenesin 600 mg tablet, 600 - 1,200 mg PO BID 01/26/24 04/30/24 04/30/24 History
extended release 12 hr (Mucinex) Gastrointestinal Issue
stoxousw-rlqsre-kwsem extract 5 3 cap PO BID Supplement 01/26/24 04/30/24 04/30/24 History
mg-6 mg-150 mg capsule (Fruit and
Vegetable Daily)
sulfamethoxazole 800 1 tab PO MOWEFR@0800 Infection 01/26/24 04/30/24 04/29/24 History
mg-trimethoprim 160 mg tablet
(Bactrim DS)
testosterone 50 mg/5 gram (1 %) 1 packet topical DAILY Hormonal 01/26/24 04/30/24 04/30/24 History
transdermal gel Agent
zanubrutinib 80 mg capsule 160 mg PO BID CLL 01/26/24 04/30/24 04/30/24 History
(Brukinsa)
zinc sulfate 25 mg zinc (110 mg) 25 mg PO DAILY Supplement 01/26/24 04/30/24 04/30/24 History
tablet
cholecalciferol (vitamin D3) 50 50 mcg PO DAILY 04/30/24 04/30/24 04/30/24 History
mcg (2,000 unit) tablet
mibmaey-glxovtczps-BYR-caffeine 30 2 cap PO Q8HPRN PRN headache 04/30/24 04/30/24 Unknown History
mg-50 mg-325 mg-40 mg capsule
(Ascomp with Codeine)
dexamethasone 4 mg tablet 4 mg PO USEASDIRECTD 04/30/24 04/30/24 Unknown History
itraconazole 100 mg capsule 200 mg PO BID 04/30/24 04/30/24 04/30/24 History
prednisone 10 mg tablet 5 mg PO Q48H 04/30/24 04/30/24 04/29/24 History
prednisone 10 mg tablet 10 mg PO Q48H 04/30/24 04/30/24 04/30/24 History
cefuroxime axetil 500 mg tablet 500 mg PO BID 5 days #10 tabs 05/03/24 Unknown Rx
doxycycline hyclate 100 mg capsule 100 mg PO Q12 #11 caps 05/03/24 Unknown Rx
Review of Systems
-
Unable to Obtain full review of systems at this time due to: Other ( Per HPI)
Vitals / Labs / Diagnostic Testing
Vital Signs
Temp Pulse Resp BP Pulse Ox
97.9 F 80 21 132/73 92
02/02/25 12:12 02/02/25 15:00 02/02/25 15:00 02/02/25 15:00 02/02/25 15:05
Lab Data
02/02/25 12:33
02/02/25 12:33
Diagnostic Testing:
Physical Exam
-
Exam:
well-nourished and well-developed in no apparent distress
HEENT-atraumatic, normocephalic
Neck-supple, no JVD, no bruit
Heart-regular rate and rhythm-no murmurs, rubs or gallops
Chest with mildly diminished breath sounds, rare crackles at the left base, few rhonchi and few wheezes
Back-no tenderness
Abdomen-soft, nontender, nondistended, no hepatosplenomegaly
Extremities-no cyanosis, clubbing, edema and good peripheral pulses
Integument-intact, no rashes, lesions or ecchymosis
Neurology-alert and oriented, nonfocal motor and sensory exam
Assessment
-
69-year-old never smoking male with underlying CLL, allergic bronchopulmonary aspergillosis, asthma, hypertension, hyperlipidemia, migraines, renal calculi, who was recently treated with 4 months of itraconazole and prednisone for ABPA flare and now
presents with similar symptoms including mucus production-pulmonary consulted for asthma/possible ABPA flare 02/02/2025.
Suspect ABPA flare
Multifocal pneumonia
Asthma with acute exacerbation
Leukocytosis
Mild hyperglycemia
Elevated total bilirubin-
Elevated IgE 01/27/[id number]
Conditions present prior to admission:
CLL diagnosed 2011 status post chemo with recurrence 2020-HUP/IVIG.
ABPA treated with prednisone/itraconazole.
Asthma.
Multifocal pneumonia December 2023.
CAD/CABG/AVR.
Hypothyroid.
Thyroid cancer/thyroidectomy.
Hepatitis A.
Diverticulitis/sigmoidectomy colostomy/reversal 2021.
EFREM.
Renal Calculi
Melanoma.
GERD.
Tonsillectomy. Partial thyroidectomy. Bovine AVR/CABG 2018. Appendectomy 2020. Colostomy reversal 2021. Mohs procedure 2023.
Plan
Patient has a complicated medical history and current history suggests probable resurgence of ABPA-successfully treated with 4 weeks of itraconazole/prednisone and now many symptoms returned
Multiple chest x-rays, CTs of the chest, cardiac workup, pulmonary function test, sleep studies, and laboratory evaluations including significantly elevated IgE and Aspergillus antibodies are summarized below.
History is consistent with ABPA and this patient with underlying CLL and multiple other medical issues
Admit patient
Supplemental oxygen as needed
Assess discharge supplemental oxygen at time of discharge
Nebulizers
Hypertonic nebulizers if needed
Mucolytic's
Mucus clearing devices
Check cultures
Sputum culture for Aspergillus as well
Infectious disease consultation-follows with -recently completed 4 weeks of itraconazole
Empiric antibiotics-cover routine bacterial
I would introduce itraconazole and steroids and treat for ABPA while waiting for sputum culture
Follow leukocytosis
Follow chest x-ray
Likely will need long course of prednisone as well as antifungal-itraconazole 200 mg twice daily for up to 16 weeks or vera, Zoll 200 mg twice daily for 16 weeks
Antacid should be avoided if itraconazole is used and the medication should be taken with meals
If patient has recurrent exacerbations despite prednisone tapers there is data about IL-5 inhibition- Nucala or Fasenra as well as benefits of anti-IgE therapy- Xolair as well as IL/IL 13 inhibition-Dupixent
I would ask his community development coordinator if these Biologics would be acceptable
Follow IgE levels
Patient was due for follow-up CT chest
He also follows with hematology at [facility]-Dr. Cotton and locally Dr. Cedeño
Monitor blood sugar
Insulin supplementation if needed
DVT prophylaxis
Nutrition
Early mobilization
Dr. Pinto reviewed with ED doc, primary team, ED nursing and at the bedside
Patient is hoping to be well enough in 6 days to go to the [facility] this January and has a trip going to [place]/[place] May 2025[place] cruise
Outpatient pulmonary follow-up with Dr. Pinto
Diagnostic data:
Chest x-ray 07/05/24-NAD, right upper lobe pneumonia, resolved-patient notified.
Chest x-ray 02/02/2025-bilateral peripheral airspace disease left greater than right suggesting pneumonia
CT chest 07/11/18-persistent infiltrates greatest at the left base-no pneumonia symptoms
Chest x-ray 09/24/19--right mid and lower lobe pneumonia
CT mczhf-SRQ-13/6/23-new mediastinal, bilateral hilar and left axillary adenopathy consistent with known CLL. Also a new 4 mm solid nodule in the left lower lobe. Patient notified-repeat CT chest in 4-[address] abdomen and uszhrq-QJR-26/6/23-several mildly enlarged retroperitoneal lymph nodes are slightly decreased in size compared to prior study, no groin lymph nodes, mild splenomegaly, slightly increased in size .
CT chest, abdomen and rwrtqs-GXR-8/12/24-new moderate right upper and middle lobe consolidation consistent with multifocal pneumonia, slightly increased right hilar lymph node, likely reactive, decreased size of mediastinal and axillary adenopathy
likely related to improving lymphoma, no acute abdominal elbow process, decrease in size of mildly prominent retroperitoneal lymph nodes and no new or progressive lymphadenopathy, stable mild splenomegaly, cholelithiasis without acute cholecystitis .
CT chest- 01/26/2024- no pulmonary embolism.� Mild subcarinal adenopathy approximated 1.4 cm.� Mild confluent bilateral hilar lymph void tissue.� Small mediastinal lymph nodes.� Patchy airspace opacity anterior left upper lobe consistent with
pneumonia.� Patchy airspace opacities.� Segment left lower lobe and lingula.� The left lower lobe patchy and slightly more confluent airspace disease noted.� Few small nodular opacities likely inflammatory includes a 8.3 mm nodule in the
anterolateral left upper lobe, 3 mm nodule in the right upper lobe and smaller nodular opacities scattered bilaterally.� Posterior medial right lung base bronchiectasis with intraluminal opacity likely reflecting mucous plugging.
Cardiac urmcxlmcfkqoswj66/3/18--EF 50-55%,-RCA occlusion, severe Status post AVR/CAB x 1--08/15/18
Echocardiogram 09/10/19--Normal ventricular size and systolic function, EF 55-60%, normal diastolic function, bovine aortic valve prosthesis, mild aortic regurgitation, mild to moderately dilated aortic root measuring 4.1 cm, since echo September 2018and
change.
Echocardiogram 10/18/2024-EF 50-55%, trace mitral regurgitation, bovine aortic valve well-seated, PA systolic 28
PFT 01/30/14-FEV1 2.3 L (54%), TLC 65-72%, DLCO 57-62%
PFT 09/29/15-FEV1 2.4 L (62%), TLC 81%, DLCO 76%
PFT 01/04/17-FEV1 2.2 L (57%), TLC 73%, DLCO 57%PFT 10/30/18-FEV1 2.1 L (55%), TLC 70%, DLCO 55%
PFT 05/04/20--FEV1 2.13 L-56%, FVC 3.22 L-64%, TLC 75%, RV 81%, DLCO 58%. Moderate obstructive lung disease is present on spirometry, lung lines are mildly reduced in the diffusing capacity is moderately reduced.Spirometry 05/26/22-FEV1 1.76 L-47%,
FVC 2.5 L-49%, no significant BD response. Moderate restriction.
PFT 07/13/23-FEV1 1.87-51%, FVC 3.1 463%, no significant BD response, TLC 66%, RV 72%, DLCO 47%, DLCO/VA 85%. Moderate obstruction on spirometry, mild restriction on lung findings and mild to moderate reduction in diffusing capacity.
Spirometry-01/17/2024- FEV1 1.45-41%,FVC 2.39, 50, ratio 56, 7 % BD response
Spirometry- 02/15/2024- FEV1 1.89,� FVC 2.80, 58� Fev1 1.89, 53� ratio 67
PFT 04/04/24-FEV1 1.83-50%, FVC 2.77-56%, no significant BD response, TLC 60%, RV 60%, DLCO 51%, DLCO/VA 85%.� Moderate combined obstruction and restriction with moderate reduction in diffusing capacity.Spirometry 07/11/24-FEV1 1.3-37%, FVC 2.2
to-45%, no significant BD response.� Severe obstruction.
PFT 11/04/24-FEV1 1.72-40%, FVC 2.76-56%, significant 11% improvement in FEV1 postbronchodilator, TLC 60%, RV 72%, DLCO 50%, DLCO/VA 92%.� Moderate combined obstruction and restriction with significant BD response and moderate reduction in diffusing
capacity.
PSG-AHI-5, desaturation marjorie 80%, CPAP 15 cm-intolerant.
Hypogammaglobulinemia- IVGG every 8 weeks
Eosinophils 09/26/19--0
IgG 02/04/11--low-436
SARS CoV 2-08/05/20-positive
Hemoglobin 10/08/21-13
Eosinophils 08/29/21-1000Eosinophils 10/08/21-400
Sputum culture 01/18/24-heavy growth Escherichia coli-sensitive cefepime, ceftriaxone, cefuroxime, ciprofloxacin, imipenem, levofloxacin, meropenem, Zosyn and resistant to ampicillin, septal zone, gentamicin, tetracycline and Bactrim
CBC-01/26/2024-� CBC- WBC 12.7,� Abs Eos 1.2,� Immunoglobulin G 502,� CRP 6.60,� IgE 3301
sputum culture-01/26/2024-� SPutum- + MOLD/aspergillus fumagatas.�
IgE-01/27/2024-� IgE 3301
ABPA panel-01/27/2024- A. fumigatus #1 Ab, DETECTED,� Allergen/Mold 62.90 (High),�
Immunoglbulin E 3834� � � � � � � � � �
Beta-D Glucan- Negative for invasive,� Serum Aspergillus Galactoomannan Antigen Negative.IgE 02/28/24-down to 543.
Proteinase 3 antibody 01/27/24-0
Myeloperoxidase antibody-01/27/2024-0
Data Reviewed
-
PFT: Tracing personally visualized and interpreted and Report reviewed by me
EKG: Tracing personally visualized and interpreted and Report reviewed by me
Radiology: Image personally visualized and interpreted and Report reviewed by me
CT Scan: Image personally visualized and interpreted and Report reviewed by me
Medical Tests (Nuc Med, Echo etc): Report reviewed by me
Labs: Labs reviewed by me
Old Records: Reviewed
Total Time Spent with Patient (in minutes): 85
--- NOTE | 2025-02-02 16:25 | HPS.HSE ---
Family Physician
-
Family Physician: Irwin Kay
Chief Complaint
-
Cough and shortness of breath
History of Present Illness
Patient 69 years old male with history of CLL, asthma, hypertension, hyperlipidemia, allergic bronchopulmonary aspergillosis, came into the hospital with cough and shortness of breath. Patient has been feeling ill for about 2 weeks but got worse
since the . He has been complaining of cough associated with brown sputum production, denies hemoptysis. He has been having shortness of breath. He has been having fevers and chills usually in the evening up to 101 Fahrenheit
over the last couple of days. Denies chest pain but does report some chest soreness with cough. Denies abdominal pain vomiting or diarrhea. He does have nausea on and off. He has been complaining of lower extremity edema and he has been taking
oral diuretics last one on Monday. Patient had been treated with steroids and antifungal for ABPA in the past. In the ER, he was noted to have a white blood cell count of close to 28,000 and chest x-ray with bilateral extensive opacities more
pronounced on the left no pleural effusions. He was referred to hospitalist service for further evaluation.
Medical History
Past Medical History
Past Medical History: Reports Other (CLL diagnosed 2011 status post chemo with recurrence 2020-HUP/IVIG. ABPA treated with prednisone/itraconazole. Asthma. Multifocal pneumonia December 2023. CAD/CABG/AVR. Hypothyroid. Thyroid
cancer/thyroidectomy. Hepatitis A. Diverticulitis/sigmoidectomy colostomy/reversal 2021. EFREM. Renal ca)
Past Surgical History: Reports Other (Tonsillectomy. Partial thyroidectomy. Bovine AVR/CABG 2018. Appendectomy 2020. Colostomy reversal 2021. Mohs procedure 2023.)
Social History
Tobacco: Non-smoker
Alcohol: Occasional
Drug: None
Personal:
Living: With Family
Employment: Retired ([employer])
Family History
Family History: Other (brother of pneumonia in setting of CLL)
Allergies / Home Medications
Allergies reflects when Allergies were last updated in [employer].
Home Medications with original date entered in [employer]
Allergy/Medication List:
Allergies
Allergy/AdvReac Type Severity Reaction Status Date / Time
cat dander Allergy WHEEZING Verified 02/02/25 12:18
immune globulin,gamma (IgG) Allergy WHEEZING Verified 02/02/25 12:18
human
Iodinated Contrast Media (IV Allergy wheezing Verified 02/02/25 12:18
Dye, Iodine Containing
Contrast )
ragweed pollen Allergy WHEEZING Verified 02/02/25 12:18
Home Medications
ascorbic acid (vitamin C) 500 mg tablet (Vitamin C) 500 mg PO DAILY Supplement 10/30/16
ezetimibe 10 mg tablet 10 mg PO HS High cholesterol 10/30/16
levothyroxine 75 mcg tablet 75 mcg PO HS Thyroid 10/30/16
lorazepam 0.5 mg tablet 0.5 mg PO BID Mental Health/Anxiety 10/30/16
metoprolol tartrate 25 mg tablet 25 mg PO BID Heart disease 09/24/19
amlodipine 5 mg tablet (Norvasc) 5 mg PO DAILY Blood Pressure 01/26/24
fluticasone furoate 100 mcg-vilanterol 25 mcg/dose inhalation powder (Breo Ellipta) 1 inh inhalation R DAILY Lung/Breathing Issues 01/26/24
guaifenesin 600 mg tablet, extended release 12 hr (Mucinex) 600 mg PO BID Gastrointestinal Issue 01/26/24
pbxauppw-bvgvsp-yovpt extract 5 mg-6 mg-150 mg capsule (Fruit and Vegetable Daily) 2 cap PO BID Supplement 01/26/24
sulfamethoxazole 800 mg-trimethoprim 160 mg tablet (Bactrim DS) 1 tab PO MOWEFR Infection 01/26/24
testosterone 50 mg/5 gram (1 %) transdermal gel 1 packet topical DAILY Hormonal Agent 01/26/24
zanubrutinib 80 mg capsule (Brukinsa) 160 mg PO BID CLL 01/26/24
cholecalciferol (vitamin D3) 50 mcg (2,000 unit) tablet 50 mcg PO DAILY 04/30/24
dexamethasone 4 mg tablet 8 mg PO DIRECTED 04/30/24
Align 1 cap PO DAILY 02/02/25
Ivig Infusion 1 dose IV Q7W 02/02/25
Metamucil 1 tsp PO DAILY 02/02/25
acetaminophen 500 mg tablet (Tylenol Extra Strength) 1,000 mg PO Q8HPRN PRN mild pain 02/02/25
acyclovir 400 mg tablet 400 mg PO Q12H 02/02/25
albuterol sulfate 90 mcg/actuation aerosol inhaler 2 puff inhalation R Q4HPRN PRN sob 02/02/25
alfuzosin 10 mg tablet,extended release 24 hr 10 mg PO HS 02/02/25
apixaban 5 mg tablet (Eliquis) 5 mg PO BID 02/02/25
atorvastatin 40 mg tablet 40 mg PO DAILY 02/02/25
pdvtgpjpvo-fuzbqieztlbhy-gikwgugs 50 mg-300 mg-40 mg capsule 1 cap PO Q4H PRN migraines 02/02/25
calcium carbonate 200 mg PO DAILY 02/02/25
furosemide 20 mg tablet 20 mg PO DAILY PRN edema 02/02/25
furosemide 20 mg tablet 20 mg PO MOWEFR 02/02/25
glucosamine-chondroitin 250 mg-200 mg tablet 2 tab PO DAILY 02/02/25
multivitamin 1 tab PO DAILY 02/02/25
sildenafil 100 mg tablet 100 mg PO DAILY PRN ed 02/02/25
zinc 30 mg PO DAILY 02/02/25
Review of Systems
-
A 12 point ROS was completed and negative except as noted: Yes
Physical Exam
Vital Signs
Vital Signs
Temp Pulse Resp BP Pulse Ox
97.9 F 83 15 132/73 93
02/02/25 12:12 02/02/25 16:11 02/02/25 16:11 02/02/25 15:00 02/02/25 16:11
Physical exam:
General: Acutely ill.
HEENT: Normocephalic, Atraumatic and Moist Mucous Membranes
Respiratory: Coarse crackles on the left base, bilateral scattered wheezes. No rhonchi
Cardiac: Regular Rhythm and S1/S2
GI: Soft, Nontender and Nondistended
Musculoskeletal: No Clubbing, No Cyanosis. Bilateral lower extremity edema present
Neuro: Awake, Alert and Oriented, no gross neurological deficits.
Psych: Calm
Physical Exam
General: Other
Laboratory Results
-
02/02/25 12:33
02/02/25 12:33
Laboratory Results
Total Bilirubin 2.0 mg/dl (0.2-1.3) H 02/02/25 12:33
AST 23 U/L (17-59) 02/02/25 12:33
ALT 25 U/L (0-50) 02/02/25 12:33
Alkaline Phosphatase 111 U/L (38-126) 02/02/25 12:33
Troponin I 0.032 ng/ml 02/02/25 12:33
Data Reviewed
-
Diagnostic Radiology: Image Personally Visualized and interpreted
Lab Data: Labs Reviewed by me
Impression/Plan
-
IMPRESSION:
Patient is 69 years old male with multiple comorbidities came into the hospital with cough shortness of breath and leukocytosis and abnormal chest x-ray consistent with bilateral multifocal pneumonia and concerns for allergic bronchopulmonary
aspergillosis flare. Patient has increased risk of morbidity and mortality therefore he will need to be treated accordingly and requires multispecialty approach and monitor closely as inpatient
PLAN:
Multifocal pneumonia:
Treat as community-acquired pneumonia
IV Rocephin and doxycycline
Monitor temperature curve and WBC trend
ID consult
Check sputum culture
Check Legionella and strep
Suspect allergic bronchopulmonary aspergillosis flare:
Started on antifungal, itraconazole 100 mg p.o. twice a day
Started on IV steroids, Solu-Medrol 60 mg every 8 hours
Bronchodilators
Pulmonary consult
Sputum culture
Check IgE levels against Aspergillus
Eosinophil count normal today
Seen and reviewed chest x-ray
Sepsis due to pneumonia and ABPA:
Treat as above
Tachycardic despite being on beta-blockers
Asthma exacerbation in the setting of ABPA:
Started on IV steroids, Solu-Medrol 60 mg every 8 hours
Started on DuoNebs 4 times daily
Chronic HFpEF:
On diuretics every other day on weekdays but will start him on Lasix 20 mg daily from tomorrow on
Given some IV fluids in the ED
Hold off on further fluids
Monitor ins and outs and daily weight
Paroxysmal atrial fibrillation:
Continue rate control, metoprolol tartrate 25 mg twice a day
Continue anticoagulation, Eliquis 5 mg p.o. twice a day
Cardiac monitoring
History of embolic TIA:
Continue anticoagulation and statins
History of CLL:
On Brukinsa 120 mg p.o. twice a day
On IV immunoglobulin infusions as outpatient
History of CAD:
History of CABG back in 2018
Chest pain-free
Continue Eliquis, beta-blockers, and statins (not on antiplatelets but substituted with anticoagulation)
Cardiac monitoring
Hypertension:
Continue home medications
Hyperlipidemia:
Continue home statins and ezetimibe
Hypothyroidism:
History of thyroid cancer status post thyroidectomy in the past
Continue thyroid replacement
Hyperglycemia:
Start insulin sliding scale while on steroids
Check hemoglobin A1c in a.m.
Other medical problems:
Diverticular disease status post colostomy reversal 2021
EFREM
Nephrolithiasis
Melanoma status post Mohs procedure 2023
GERD
Bioprosthetic AVR
DVT prophylaxis:
Eliquis
CODE STATUS:
Full code
Time spent 75 minutes
[2025-02-02] MEDS: SOLU-MEDROL PF 60 MG IV ×2 (16:42→23:48)
[2025-02-02] MEDS: STERILE WATER FOR INJECTION 10 ML IV (18:40)
[2025-02-02] MEDS: ROCEPHIN 1000 MG IV (18:41)
[2025-02-02] MEDS: SPORANOX 100 MG PO (21:00)
[2025-02-02] MEDS: MUCINEX 1200 MG PO (21:00)
[2025-02-02] MEDS: ELIQUIS 5 MG PO (21:00)
[2025-02-02] MEDS: ZOVIRAX 400 MG PO (21:00)
[2025-02-02] MEDS: VIBRAMYCIN 100 MG PO (21:00)
[2025-02-02] MEDS: NON-FORMULARY ITEM 160 MG PO (21:01)
[2025-02-02] MEDS: ZETIA 10 MG PO (21:02)
--- NOTE | 2025-02-02 21:30 | PTCARENOTE ---
Pt admit from ED via stretcher. Ambulated to bed from hallway without difficulty. Room air sat 92%. Placed on O2 2L NC. Admission assessment completed and pt resting comfortably in bed.
[2025-02-02 21:45] LABS: Glucose - Point of Care 246 mg/dl (70-99)
[2025-02-03 03:14] VITALS: BP 118/63
[2025-02-03 07:10] VITALS: BP 139/85
[2025-02-03 07:10] LABS: Glucose - Point of Care 222 mg/dl (70-99)
[2025-02-03] MEDS: DUONEB 3 ML INH ×4 (07:13→19:44)
[2025-02-03 08:03] LABS: Hematocrit 38.3 % (39.0-52.0); Hemoglobin 13.1 g/dL (13.0-18.0); Mean Corp Hgb Conc. 34.2 g/dL (33.0-37.0); Mean Corpuscular Volume 88.9 fL (80.0-94.0); Nucleated Red Blood Cells % 0 % (-); Platelet Count 88 10^3/uL (130-400); Red Cell Dist. Width 13.0 % (11.5-14.5)
[2025-02-03] MEDS: VIBRAMYCIN 100 MG PO ×2 (08:19→21:17)
[2025-02-03] MEDS: SOLU-MEDROL PF 60 MG IV ×2 (08:20→15:01)
[2025-02-03] MEDS: MUCINEX 1200 MG PO ×2 (08:20→21:17)
[2025-02-03] MEDS: ELIQUIS 5 MG PO ×2 (08:20→21:17)
[2025-02-03] MEDS: NORVASC 5 MG PO (08:20)
[2025-02-03] MEDS: ZOVIRAX 400 MG PO ×2 (08:20→21:18)
[2025-02-03] MEDS: NOVOLOG FLEXPEN-MODERATE RESISTANCE 3 UNITS SC ×2 (08:20→17:38)
[2025-02-03] MEDS: SPORANOX 100 MG PO (08:20)
[2025-02-03] MEDS: LIPITOR 40 MG PO (08:21)
[2025-02-03] MEDS: LASIX 20 MG PO (08:21)
[2025-02-03] MEDS: NON-FORMULARY ITEM 160 MG PO ×2 (08:21→21:16)
[2025-02-03 08:36] LABS: Blood Urea Nitrogen 18 mg/dl (9-20); Calcium 8.4 mg/dl (8.4-10.2); Carbon Dioxide 25 mmol/L (22-30); Chloride 108 mmol/L (98-107); Estimated Creatinine Clearance 86 ml/min; Glucose 208 mg/dl (70-99); Potassium 4.1 mmol/L (3.5-5.1); Sodium 138 mmol/L (135-145); eGFR > 60.00
--- NOTE | 2025-02-03 09:09 | CON.ID ---
Consultation
-
Date/Time Consultation Requested: February 02, 2025 1432
Date/Time Consultation Performed: February 03, 2025 0915
Requesting Provider: Dr. Brandt Metz
Performing Provider: Dr. Jessica Magallanes
Reason for Consultation: History of ABPA, now with similar symptoms
Chief Complaint / Past History
Chief Complaint
Cough
History of Present Illness
69-year-old male well-known to me with history of hypogammaglobulinemia on IVIG, CLL on Brukinsa, history of allergic bronchopulmonary aspergillosis treated with steroid taper and 4 months of itraconazole completed June 12, 2024 who was doing
well until 3 weeks ago when he developed cough. Cough productive of brown/yellowish/greenish sputum. No hemoptysis this time. However on January 30, he developed worsening symptoms with chills, fever up to 100.8, and shortness of breath.
Mild wheezing. He came to the ER yesterday. White count 27.8. Chest x-ray shows bilateral peripheral airspace opacities left greater than right. He was seen by duralumin metalworker who started steroid and empiric itraconazole 100 g p.o. twice daily..
IgE is currently pending. Patient reports feeling better since steroid. Denies ill contacts. Recent travel to [place] 12 days from 12/09 - 12/27.
Past History
Additional Past Medical History:
CLL diagnosed 1999 2011 status post chemotherapy with recurrence in 2020, currently on Zanubrutinib since 05/2023 ([facility])
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
pAfib on Eliquis
Hypertension
Chronic thrombocytopenia
Recurrent pneumonia
Allergic Bronchopulmonary Aspergillosis (2023)
TIA
CAD status post CAB x 1
Bio-Aortic valve replacement
Appendectomy
Diverticulitis status post sigmoidectomy with colostomy with subsequent colostomy reversal
Allergy History:
cat dander Allergy (Verified 02/02/25 12:18)
WHEEZING
immune globulin,gamma (IgG) human Allergy (Verified 02/02/25 12:18)
WHEEZING
Iodinated Contrast Media (IV Dye, Iodine Containing Contrast ) Allergy (Verified 02/02/25 12:18)
wheezing
ragweed pollen Allergy (Verified 02/02/25 12:18)
WHEEZING
Medications Reviewed: Yes
Current Antibiotics:
Itraconazole 100mg po bid (d2)
Ceftriaxone day 2
Doxycycline day 2
Social History
Tobacco: Non-Smoker
Alcohol: None
Drug: None
Personal:
Living: With Family
Family History
Family History: Not Pertinent
Review of Systems
Review of Systems
General: Fever and Chills
HEENT: Negative Sinus Problems, Headache or Pharyngitis
Cardiovascular: Negative Chest Pain
Respiratory: Dyspnea and Cough
Gasteroenterology: Negative Nausea, Vomiting or Diarrhea
Genital / Urological: Negative Dysuria or Flank Pain
Endocrine: Weakness
All systems: All other systems were reviewed and were negative
Vital Signs
Temp Pulse Resp BP Pulse Ox
97.5 F 87 16 139/85 95
02/03/25 07:10 02/03/25 07:10 02/03/25 07:10 02/03/25 07:10 02/03/25 07:10
Physical Exam
Physical Exam
Constitutional: No Acute Distress, Comfortable and Non-toxic
Eyes: No Conjunctival Hemorrhage and Sclera Anicteric
Cardiovascular: Regular Rate and S1/S2
Pulmonary: Rales (Bibasilar)
Gastrointestinal: Soft, Non Tender, Non Distended and Normal Bowel Sounds
Genito-Urinary: Negative CVA Tenderness
Extremities: Negative Edema
Skin: Other (RLE large ecchymosis)
Neurological: AO x 3
Lab / Diagnostic Study Results
02/03/25 06:36
02/03/25 06:36
Abs Immat Gran (auto) 0.8 10^3/uL (0-0.05) H 02/03/25 06:36
Absolute Neuts (auto) 16.3 10^3/uL (1.4-6.5) H 02/03/25 06:36
Absolute Lymphs (auto) 0.4 10^3/uL (1.2-3.4) L 02/03/25 06:36
Absolute Monos (auto) 0.5 10^3/uL (0.1-0.6) 02/03/25 06:36
Absolute Basos (auto) 0.0 10^3/uL (0-0.2) 02/03/25 06:36
Immature Gran % 4.3 % (0-0.5) H 02/03/25 06:36
Neutrophils % 90.7 % (42.2-75.2) H 02/03/25 06:36
Lymphocytes % 2.4 % (20.5-51.1) L 02/03/25 06:36
Monocytes % 2.5 % (1.7-9.3) 02/03/25 06:36
Eosinophils % 0.0 % (0-6) 02/03/25 06:36
Basophils % 0.1 % (0-2) 02/03/25 06:36
Microbiology Results
Micro:
02/02/25 18:38 Legionella Urinary Antigen - Final
Urine Negative for Legionella pneumophila Serogroup 1 antigen.
A negative result does not rule out the possiblity of
Legionella infection due to other serogroups or species of
Legionella. Clinical correlation is recommended.
Streptococcus pneumoniae Antigen (M - Final
Negative for Streptococcus pneumoniae antigen.
A negative result does not exclude infection with
Streptococcus pneumoniae. Clinical correlation is
recommended.
02/02/25 16:33 Respiratory Culture - Pending
Sputum Gram Stain - Pending
02/02/25 CXR: Bilateral peripheral airspace opacities, left greater right
Assessment / Plan
# Pneumonia
# Leukocytosis
#Immunosuppressed host
Recurrent CLL on Zanubrutinib since 05/2023 ([facility]), prophylactic acyclovir and Bactrim 3x/wk
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
# hx ABPA treated with steroid/itraconazole through 05/2024
# Paroxysmal atrial fibrillation on Eliquis
-Await total immunoglobulin IgE
- Await sputum culture
- Continue ceftriaxone and doxycycline for now
- Continue steroid
- Replace itraconazole with voriconazole due to drug-drug interaction with Eliquis with significant increased risk of bleeding.
Monitor for signs and symptoms while on voriconazole on Eliquis.
Hold atorvastatin for now
- Resume Bactrim prophylaxis.
- Trend wbc
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
CLL diagnosed 1999 2011 status post chemotherapy with recurrence in 2020, currently on Zanubrutinib since 05/2023 ([facility])
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
pAfib on Eliquis
Hypertension
Chronic thrombocytopenia
Recurrent pneumonia
Allergic Bronchopulmonary Aspergillosis (2023)
TIA
CAD status post CAB x 1
Bio-Aortic valve replacement
Appendectomy
Diverticulitis status post sigmoidectomy with colostomy with subsequent colostomy reversal
--- NOTE | 2025-02-03 09:10 | W.PN.PUL3 ---
Today's Communication / Plan
-
Continue antifungal therapy with voriconazole, per ID
Follow-up IgE level
Repeat CT chest
Continue with empiric treatment for pneumonia with doxycycline + Rocephin
Mucolytics
Systemic steroids with slow taper
OOB as tolerated
Supplemental O2 if needed to maintain SpO2 >90-94%
Outpatient pulmonary office follow-up will be arranged
Pulmonary service will continue to follow along
Assessment
-
69-year-old never smoking male with underlying CLL, allergic bronchopulmonary aspergillosis, asthma, hypertension, hyperlipidemia, migraines, renal calculi, who was recently treated with 4 months of itraconazole and prednisone for ABPA flare and now
presents with similar symptoms including mucus production-pulmonary consulted for asthma/possible ABPA flare 02/02/2025.
Suspected ABPA flare (previously treated with steroid taper +4 months of itraconazole, completed 06/12/2024)
Multifocal pneumonia
Asthma with acute exacerbation
Leukocytosis
Mild hyperglycemia
Elevated total bilirubin-
Elevated IgE 01/27/2024 - 3301
Conditions present prior to admission:
CLL diagnosed 2012 status post chemo with recurrence 2020-HUP/IVIG.
ABPA treated with prednisone/itraconazole.
Asthma with a moderate persistent obstructive lung defect with marked improvement in a moderate gas exchange capacity defect (per PFTs on 11/04/2024)
Multifocal pneumonia December 2023.
CAD/CABG/AVR.
Hypothyroid.
Thyroid cancer/thyroidectomy.
Hepatitis A.
Diverticulitis/sigmoidectomy colostomy/reversal 2021.
EFREM.
Renal Calculi
Melanoma.
GERD.
Tonsillectomy. Partial thyroidectomy. Bovine AVR/CABG 2018. Appendectomy 2020. Colostomy reversal 2021. Mohs procedure 2023.
Plan
Patient has a complicated medical history and current history suggests probable recurrence of ABPA-successfully treated with 4 weeks of itraconazole/prednisone and now many symptoms returned
Multiple chest x-rays, CTs of the chest, cardiac workup, pulmonary function test, sleep studies, and laboratory evaluations including significantly elevated IgE and Aspergillus antibodies are summarized below.
History is consistent with ABPA and this patient with underlying CLL and multiple other medical issues
Continue with empiric antibiotics with Rocephin + doxycycline
ID on board
Follow-up respiratory culture (drawn 02/04/2025 � [facility]); urine antigens for Legionella + strep pneumonia both negative
Trend WBC and monitor temperature curve
Supplemental oxygen as needed
Assess discharge supplemental oxygen at time of discharge
Nebulizers
Continue systemic steroids with Solu-Medrol 60 mg IV q8hr with slow taper
Nebulized hypertonic 3% if needed
Mucolytics with mucinex
Mucus clearing devices
Given his suspected IPPA exacerbation, continue with antifungal therapy; ID has changed itraconazole to voriconazole 200 mg PO q12hr
Follow up sputum Cx
Defer duration of antifungal Tx to ID
Antacid should be avoided if itraconazole is used and the medication should be taken with meals
There is data about IL-5 inhibition- Nucala or Fasenra as well as benefits of anti-IgE therapy- Xolair as well as IL/IL 13 inhibition-Dupixent
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
IgE level is pending
Patient was due for follow-up CT chest --> I will order this for tomorrow
He also follows with hematology at [facility]-Dr. Cotton and locally Dr. Cedeño
Monitor blood sugar with goal >100 and <180mg/dL
Insulin supplementation if needed
DVT prophylaxis: On Eliquis
Nutrition
Early mobilization
Dr. iPnto reviewed with ED doc, primary team, ED nursing and at the bedside
Patient is hoping to be well enough this weekend to go to the [facility] this January and has a trip going to [place] May 2025-[place] cruise
Outpatient pulmonary follow-up with Dr. Pinto
Pulmonary service will continue to follow along.
Diagnostic data:
Chest x-ray 07/05/24-NAD, right upper lobe pneumonia, resolved-patient notified.
Chest x-ray 02/02/2025-bilateral peripheral airspace disease left greater than right suggesting pneumonia
CT chest 07/11/18-persistent infiltrates greatest at the left base-no pneumonia symptoms
Chest x-ray 09/24/19--right mid and lower lobe pneumonia
CT sofdp-DUB-37/6/23-new mediastinal, bilateral hilar and left axillary adenopathy consistent with known CLL. Also a new 4 mm solid nodule in the left lower lobe. Patient notified-repeat CT chest in 4-[address] abdomen and icckwk-HBQ-13/6/23-several mildly enlarged retroperitoneal lymph nodes are slightly decreased in size compared to prior study, no groin lymph nodes, mild splenomegaly, slightly increased in size .
CT chest, abdomen and [id number]-VZY-9/12/24-new moderate right upper and middle lobe consolidation consistent with multifocal pneumonia, slightly increased right hilar lymph node, likely reactive, decreased size of mediastinal and axillary adenopathy
likely related to improving lymphoma, no acute abdominal elbow process, decrease in size of mildly prominent retroperitoneal lymph nodes and no new or progressive lymphadenopathy, stable mild splenomegaly, cholelithiasis without acute cholecystitis .
CT chest- 01/26/2024- no pulmonary embolism.� Mild subcarinal adenopathy approximated 1.4 cm.� Mild confluent bilateral hilar lymph void tissue.� Small mediastinal lymph nodes.� Patchy airspace opacity anterior left upper lobe consistent with
pneumonia.� Patchy airspace opacities.� Segment left lower lobe and lingula.� The left lower lobe patchy and slightly more confluent airspace disease noted.� Few small nodular opacities likely inflammatory includes a 8.3 mm nodule in the
anterolateral left upper lobe, 3 mm nodule in the right upper lobe and smaller nodular opacities scattered bilaterally.� Posterior medial right lung base bronchiectasis with intraluminal opacity likely reflecting mucous plugging.
Cardiac bcfaotbmhnkdvlf81/3/18--EF 50-55%,-RCA occlusion, severe Status post AVR/CAB x 1--08/15/18
Echocardiogram 09/10/19--Normal ventricular size and systolic function, EF 55-60%, normal diastolic function, bovine aortic valve prosthesis, mild aortic regurgitation, mild to moderately dilated aortic root measuring 4.1 cm, since echo September 2018and
change.
Echocardiogram 10/18/2024-EF 50-55%, trace mitral regurgitation, bovine aortic valve well-seated, PA systolic 28
PFT 01/30/14-FEV1 2.3 L (54%), TLC 65-72%, DLCO 57-62%
PFT 09/29/15-FEV1 2.4 L (62%), TLC 81%, DLCO 76%
PFT 01/04/17-FEV1 2.2 L (57%), TLC 73%, DLCO 57%PFT 10/30/18-FEV1 2.1 L (55%), TLC 70%, DLCO 55%
PFT 05/04/20--FEV1 2.13 L-56%, FVC 3.22 L-64%, TLC 75%, RV 81%, DLCO 58%. Moderate obstructive lung disease is present on spirometry, lung lines are mildly reduced in the diffusing capacity is moderately reduced.Spirometry 05/26/22-FEV1 1.76 L-47%,
FVC 2.5 L-49%, no significant BD response. Moderate restriction.
PFT 07/13/23-FEV1 1.87-51%, FVC 3.1 463%, no significant BD response, TLC 66%, RV 72%, DLCO 47%, DLCO/VA 85%. Moderate obstruction on spirometry, mild restriction on lung findings and mild to moderate reduction in diffusing capacity.
Spirometry-01/17/2024- FEV1 1.45-41%,FVC 2.39, 50, ratio 56, 7 % BD response
Spirometry- 02/15/2024- FEV1 1.89,� FVC 2.80, 58� Fev1 1.89, 53� ratio 67
PFT 04/04/24-FEV1 1.83-50%, FVC 2.77-56%, no significant BD response, TLC 60%, RV 60%, DLCO 51%, DLCO/VA 85%.� Moderate combined obstruction and restriction with moderate reduction in diffusing capacity.Spirometry 07/11/24-FEV1 1.3-37%, FVC 2.2
to-45%, no significant BD response.� Severe obstruction.
PFT 11/04/24-FEV1 1.72-40%, FVC 2.76-56%, significant 11% improvement in FEV1 postbronchodilator, TLC 60%, RV 72%, DLCO 50%, DLCO/VA 92%.� Moderate combined obstruction and restriction with significant BD response and moderate reduction in diffusing
capacity.
PSG-AHI-5, desaturation marjorie 80%, CPAP 15 cm-intolerant.
Hypogammaglobulinemia- IVGG every 8 weeks
Eosinophils 09/26/19--0
IgG 02/04/11--low-436
SARS CoV 2-08/05/20-positive
Hemoglobin 10/08/21-13
Eosinophils 08/29/21-1000Eosinophils 10/08/21-400
Sputum culture 01/18/24-heavy growth Escherichia coli-sensitive cefepime, ceftriaxone, cefuroxime, ciprofloxacin, imipenem, levofloxacin, meropenem, Zosyn and resistant to ampicillin, septal zone, gentamicin, tetracycline and Bactrim
CBC-01/26/2024-� CBC- WBC 12.7,� Abs Eos 1.2,� Immunoglobulin G 502,� CRP 6.60,� IgE 3301
sputum culture-01/26/2024-� SPutum- + MOLD/aspergillus fumagatas.�
IgE-01/27/2024-� IgE 3301
ABPA panel-01/27/2024- A. fumigatus #1 Ab, DETECTED,� Allergen/Mold 62.90 (High),�
Immunoglbulin E 3834� � � � � � � � � �
Beta-D Glucan- Negative for invasive,� Serum Aspergillus Galactoomannan Antigen Negative.IgE 02/28/24-down to 543.
Proteinase 3 antibody 01/27/24-0
Myeloperoxidase antibody-01/27/2024-0
Total time spent today was 39 minutes for this encounter. Time includes reviewing laboratory test/imaging results, reviewing pertinent medical records, obtaining and reviewing medical history, performing an appropriate exam, ordering medications,
tests and procedures. Time also includes documentation of this encounter, coordinating patient care and communicating with other healthcare professionals. Total time does not include separately billed tests performed on this date of service.
Subjective Data
-
Date of Service:
Date of Service: February 03, 2025
Chief Complaint: Pulmonary Follow Up
Subjective:
Patient was seen and evaluated today at bedside. Feels well overall, denying chest pain. Coughed up dark red sputum. , Dede, present at bedside. All questions were answered.
Review of Systems
General: Other (Negative unless mentioned above)
Objective Data
Data Reviewed
Vital Signs / I&O / Oxygen:
Vital Signs
Temp Pulse Resp BP Pulse Ox
97.5 F 87 16 139/85 95
02/03/25 07:10 02/03/25 07:10 02/03/25 07:10 02/03/25 07:10 02/03/25 10:56
Intake and Output
02/02/25 02/03/25 02/04/25
06:59 06:59 06:59
Intake Total 460 / 460
Balance 460 / 460
SaO2 95
Nasal Cannula flow liters per 2
minute
Physical Exam
General: Respiratory Distress (negative), Comfortable, Chills (negative) and Sweats (negative)
HEENT: Normocephalic and Anicteric
Cardiovascular: S1-S2, Murmur (DEMAR heard across upper precordium), Peripheral Edema (negative) and Other (Tachycardic)
Respiratory: Wheeze (negative), Crackles ([place] in the bases to midlung [place]cal[place] bilaterally), Rhonchi (negative) and Non-Labored Respirations
GI: Soft, Non Distended, Non Tender and Normal Bowel Sounds
Neurology: AO x 3 and Tremors (negative)
Skin: Warm, Dry, Cyanosis (negative) and Jaundice (negative)
Labs/Micro/Reports
Lab Data
02/03/25 06:36
02/03/25 06:36
Microbiology
02/02/25 18:38 Urine Legionella Urinary Antigen - Final
Negative for Legionella pneumophila Serogroup 1 antigen.
A negative result does not rule out the possiblity of
Legionella infection due to other serogroups or species of
Legionella. Clinical correlation is recommended.
02/02/25 18:38 Urine Streptococcus pneumoniae Antigen (M - Final
Negative for Streptococcus pneumoniae antigen.
A negative result does not exclude infection with
Streptococcus pneumoniae. Clinical correlation is
recommended.
[2025-02-03 10:19] LABS: Glycohemoglobin (HgbA1c) 5.7 % (4.0-5.6)
[2025-02-03 11:38] VITALS: BP 130/73
--- NOTE | 2025-02-03 12:10 | CM ---
Patient seen at bedside on [address] Patient confirmed that he lives with in a 2 story home. Patient stated that there are 2 steps to enter and another 13 to the second floor. Patient uses the [facility] in [place] on [address] and his PCP is Dr. Bui.
Patient plan is for discharge home with no needs. CM will continue to follow for discharge planning needs.
Plan; home with no needs watch for possible VN needs
[2025-02-03 12:26] LABS: Glucose - Point of Care 303 mg/dl (70-99)
[2025-02-03] MEDS: NOVOLOG FLEXPEN-MODERATE RESISTANCE 7 UNITS SC (12:27)
[2025-02-03] MEDS: NOVOLOG FLEXPEN 3 UNITS SC ×2 (12:27→17:37)
--- NOTE | 2025-02-03 14:21 | W.PN.HOSP.TC ---
Today's Communication/Plan
-
see note
Assessment / Plan
Assessment / Plan
1. Multifocal pneumonia
Sepsis
History of ABPA
Immunocompromise state
- Patient presented with new onset of shortness of breath
- Chest x-ray showing bilateral pneumonia
- Legionella neg. sputum cs pending.
- Asp. IgE ~ 3300 in past, repeat pending.
- Patient had increased leukocyte count, afebrile overnight
- ID and pulmonology has been involved in care
- Patient currently on Rocephin and doxycycline and also on Voriconazole
2. Asthma flare up
- No wheezing on exam today
- Currently patient on empiric IV Solumedrol 60mg q8h
- managed by pulmonology
3. CLL
h/o of IG deficiency
- initial dx of CLL in , got chemotherapy. reoccurrence in and on Brukinsa 160mg/bid
- Gets periodic Ig infusion with oncology office.
- Maintained on prophylactic dose of Bactrim and acyclovir
4. Parox afib
- maintain on eliquis and lopressor
5. h/o CAD/CABG
h/o bioprosthetic AVR
Chronic diastolic hf
- Reported lower extremity swelling. maintained on home dose of lasix 20mg/d for now
- crackles on lung exam today, will give IV lasix 20mgx1 on top of PO lasix
DVT PPX - eliquis
FUll code
Care plan discussed with pulmonology/ID
Total time spent : 54 mins
Anticipated Discharge: 24 - 48 hours
Subjective/Interval History
-
Date of Service: February 03, 2025
Breathing subjectively better
Minimal cough
Not on oxygen
Objective Data
-
Labs:
Laboratory Results
02/03/25
06:36
WBC 18.0 H
Hgb 13.1
Hct 38.3 L
Plt Count 88 L D
Sodium 138
Potassium 4.1
Chloride 108 H
Carbon Dioxide 25
BUN 18
Creatinine 0.9
Glucose 208 H
Calcium 8.4
Vital Signs:
Vital Signs
Temp Pulse Resp BP Pulse Ox
97.9 F 90 18 130/73 94
02/03/25 11:38 02/03/25 11:40 02/03/25 11:40 02/03/25 11:38 02/03/25 11:40
I&O
02/02/25 02/03/25 02/04/25
06:59 06:59 06:59
Intake Total 460 / 460
Balance 460 / 460
Review of Systems
-
Respiratory: Reports No Symptoms
Cardiac: Reports No Symptoms
Abdomen/GI: Reports No Symptoms
Physical Exam
-
General: No Apparent Distress and Comfortable
HEENT: Negative Oxygen
Respiratory: Clear to Auscultation
Cardiac: Regular Rhythm and S1/S2; Negative Murmur or Rub
GI: Soft and Nontender
Musculoskeletal: No Edema
Neuro: Awake, Alert, Oriented, No Motor Deficits and Nonfocal/Grossly Intact
Psych: Calm
[2025-02-03] MEDS: LASIX 20 MG IV (15:00)
[2025-02-03 15:23] VITALS: BP 128/61
[2025-02-03 17:32] LABS: Glucose - Point of Care 246 mg/dl (70-99)
[2025-02-03] MEDS: ROCEPHIN 1000 MG IV (17:38)
[2025-02-03] MEDS: STERILE WATER FOR INJECTION 10 ML IV (17:38)
[2025-02-03 19:09] VITALS: BP 128/83
[2025-02-03 21:07] LABS: Glucose - Point of Care 259 mg/dl (70-99)
[2025-02-03] MEDS: VFEND 200 MG PO (21:17)
[2025-02-03] MEDS: ZETIA 10 MG PO (21:18)
[2025-02-03] MEDS: SENOKOT-S 1 TABLET PO (22:42)
[2025-02-03 23:03] VITALS: BP 139/71
[2025-02-04] MEDS: SOLU-MEDROL PF 60 MG IV ×3 (00:11→15:34)
[2025-02-04] MEDS: MELATONIN 5 MG PO ×2 (00:11→22:34)
[2025-02-04 01:31] VITALS: BMI 26.9
[2025-02-04 03:00] VITALS: BP 142/79
[2025-02-04 03:41] LABS: Glucose - Point of Care 222 mg/dl (70-99)
--- NOTE | 2025-02-04 06:14 | W.PN.UPDATE ---
Update Note
Progress Note Update
~4 am - Pt w/short run of tachycardia, HR 130's. Pt c/o palpitations right when it happened, resolved quickly. No other complaints including pain, SOB. Pt laying on side. Ordered AM labs: CBC, BMP, Mag.
~6 am - Pt c/o nausea, also noted another small run of tachycardia. Ordered EKG preliminary read showed NSR, possible left atrial enlargement, incomplete right bundle branch block, HR 85 (Similar to previous EKG on 02/02/25). Awaiting am labs. Ordered
Tigan 200 mg IM x 1 dose for nausea due to prolonged QTc.
[2025-02-04 06:57] LABS: Hematocrit 36.9 % (39.0-52.0); Hemoglobin 13.0 g/dL (13.0-18.0); Mean Corp Hgb Conc. 35.2 g/dL (33.0-37.0); Mean Corpuscular Volume 86.0 fL (80.0-94.0); Platelet Count 110 10^3/uL (130-400); Red Cell Dist. Width 13.2 % (11.5-14.5)
[2025-02-04 07:05] LABS: Blood Urea Nitrogen 27 mg/dl (9-20); Calcium 8.8 mg/dl (8.4-10.2); Carbon Dioxide 22 mmol/L (22-30); Chloride 108 mmol/L (98-107); Estimated Creatinine Clearance 78 ml/min; Glucose 218 mg/dl (70-99); Magnesium 2.1 mg/dl (1.6-2.3); Potassium 3.9 mmol/L (3.5-5.1); Sodium 139 mmol/L (135-145); eGFR > 60.00
[2025-02-04 07:06] LABS: Glucose - Point of Care 240 mg/dl (70-99)
[2025-02-04 07:08] VITALS: BP 137/75
[2025-02-04] MEDS: DUONEB 3 ML INH ×4 (07:44→19:12)
[2025-02-04] MEDS: VFEND 200 MG PO ×2 (07:57→19:45)
[2025-02-04] MEDS: VIBRAMYCIN 100 MG PO ×2 (07:58→19:45)
[2025-02-04] MEDS: NORVASC 5 MG PO (07:58)
[2025-02-04] MEDS: ZOVIRAX 400 MG PO ×2 (07:58→19:45)
[2025-02-04] MEDS: MUCINEX 1200 MG PO ×2 (07:59→19:45)
[2025-02-04] MEDS: LASIX 20 MG PO (07:59)
[2025-02-04] MEDS: ELIQUIS 5 MG PO ×2 (07:59→19:44)
[2025-02-04] MEDS: NON-FORMULARY ITEM 160 MG PO ×2 (08:00→19:43)
[2025-02-04] MEDS: NOVOLOG FLEXPEN 3 UNITS SC ×3 (08:00→17:31)
[2025-02-04] MEDS: NOVOLOG FLEXPEN-MODERATE RESISTANCE 3 UNITS SC ×2 (08:00→17:31)
[2025-02-04] MEDS: MIRALAX 17 GRAMS PO (08:21)
--- NOTE | 2025-02-04 09:25 | W.PN.HOSP.TC ---
Addendum entered and electronically signed by Chela Werner MD 02/04/25 14:41:
Chronic diastolic heart failure--may have had an acute flare earlier--appears euvolemic now
Original Note:
Today's Communication/Plan
-
restarted most of patients meds (were on hold with physician order as reason)
wean steroids as per pulm
Assessment / Plan
Assessment / Plan
pt is a 69 year old male
4 beat run of Vtach, tachycardia (pt feeling palpitations earlier)--Parox afib--'maintain on eliquis and lopressor' as per previous notes--lopressor on hold--restarted by myself today--consideration for cards consult--pt sees Dr. Canales and
asking if she is aware
Multifocal pneumonia--apprec ID--on Acyclovir, rocephin, doxy, voriconazole, and prophylactic Bactrim restarted--await CT scan chest
Sepsis
History of ABPA
Immunocompromise state
- Patient presented with new onset of shortness of breath
- Chest x-ray showing bilateral pneumonia
- Legionella neg. sputum cs with gm neg bacilli
- Asp. IgE ~ 3300 in past, repeat pending.
- Patient had increased leukocyte count, afebrile overnight
- ID and pulmonology has been involved in care
- Patient currently on Rocephin and doxycycline and also on Voriconazole
Asthma flare up
- No wheezing on exam today
- Currently patient on empiric IV Solumedrol 60mg l4z--cfcv per pulm--no wheezing
- managed by pulmonology
CLL
h/o of IG deficiency
- initial dx of CLL in , got chemotherapy. reoccurrence in and on Brukinsa 160mg/bid
- Gets periodic Ig infusion with oncology office.
- Maintained on prophylactic dose of Bactrim and acyclovir
h/o CAD/CABG
h/o bioprosthetic AVR
Chronic diastolic hf
- Reported lower extremity swelling. maintained on home dose of lasix 20mg/d for now
- crackles on lung exam today, will give IV lasix 20mgx1 on top of PO lasix
DVT PPX - eliquis
FUll code
Anticipated Discharge: > 48 hours
Subjective/Interval History
-
Date of Service: February 04, 2025
pt had palpitations last night--4 beat run of Vtach noted
Objective Data
-
Labs:
Laboratory Results
02/04/25
06:18
WBC 18.4 H
Hgb 13.0
Hct 36.9 L
Plt Count 110 L D
Sodium 139
Potassium 3.9
Chloride 108 H
Carbon Dioxide 22
BUN 27 H
Creatinine 1.0
Glucose 218 H
Calcium 8.8
Vital Signs:
max temp for 24 hours
02/03/25
23:03
Temp 98.0 F
Vital Signs
Temp Pulse Resp BP Pulse Ox
98.0 F 94 16 137/75 96
02/04/25 07:08 02/04/25 07:59 02/04/25 07:47 02/04/25 07:59 02/04/25 07:47
I&O
02/03/25 02/04/25 02/05/25
06:59 06:59 06:59
Intake Total 460 / 460 2069 / 2069
Output Total 1425 / 1425
Balance 460 / 460 645 / 645
Review of Systems
-
All other systems: Reviewed and negative
Cardiac: Reports Palpitations (earlier today)
Physical Exam
-
General: Well Developed, Well Nourished and No Apparent Distress
HEENT: Normocephalic and Atraumatic
Respiratory: Other (appears SOB, returned from a 16 minute walk)
Cardiac: Regular Rhythm, S1/S2 and Tachycardic (returned from 16 minute walk)
GI: Soft, Nontender, Nondistended and Normal Bowel Sounds
Musculoskeletal: No Clubbing, No Cyanosis and No Edema
Skin: Warm
Neuro: Awake
--- NOTE | 2025-02-04 09:33 | W.PN.PUL3 ---
Today's Communication / Plan
-
Continue antifungal therapy with voriconazole, per ID
Follow-up total IgE level
Repeat CT chest
Continue with empiric treatment for pneumonia with doxycycline + Rocephin
Mucolytics
Systemic steroids with slow taper --> start to taper to 40mg IV q12hr
OOB as tolerated
Supplemental O2 if needed to maintain SpO2 >90-94%
Outpatient pulmonary office follow-up will be arranged
Pulmonary service will continue to follow along
Assessment
-
69-year-old never smoking male with underlying CLL, allergic bronchopulmonary aspergillosis, asthma, hypertension, hyperlipidemia, migraines, renal calculi, who was recently treated with 4 months of itraconazole and prednisone for ABPA flare and now
presents with similar symptoms including mucus production-pulmonary consulted for asthma/possible ABPA flare 02/02/2025.
Suspected ABPA flare (previously treated with steroid taper + 4 months of itraconazole, completed 06/12/2024)
Multifocal pneumonia
Asthma with acute exacerbation
Leukocytosis
Mild hyperglycemia
Elevated total bilirubin
Elevated IgE 01/27/2024 - 3301
Conditions present prior to admission:
CLL diagnosed 2011 status post chemo with recurrence 2020-HUP/IVIG.
ABPA treated with prednisone/itraconazole.
Asthma with a moderate persistent obstructive lung defect with marked improvement in a moderate gas exchange capacity defect (per PFTs on 11/04/2024)
Multifocal pneumonia December 2023.
CAD/CABG/AVR.
Hypothyroid.
Thyroid cancer/thyroidectomy.
Hepatitis A.
Diverticulitis/sigmoidectomy colostomy/reversal 2021.
EFREM.
Renal Calculi
Melanoma.
GERD.
Tonsillectomy. Partial thyroidectomy. Bovine AVR/CABG 2018. Appendectomy 2020. Colostomy reversal 2021. Mohs procedure 2023.
Plan
Patient has a complicated medical history and current history suggests probable recurrence of ABPA-successfully treated with 4 weeks of itraconazole/prednisone and now many symptoms returned
Multiple chest x-rays, CTs of the chest, cardiac workup, pulmonary function test, sleep studies, and laboratory evaluations including significantly elevated IgE and Aspergillus antibodies are summarized below.
History is consistent with ABPA and this patient with underlying CLL and multiple other medical issues
Continue with empiric antibiotics with Rocephin + doxycycline
ID on board
Follow-up respiratory culture (drawn 02/04/2025 � growing GNR); urine antigens for Legionella + strep pneumonia both negative
Trend WBC and monitor temperature curve
Supplemental oxygen as needed
Assess discharge supplemental oxygen at time of discharge
Nebulizers
Continue systemic steroids with Solu-Medrol 60 mg IV q8hr with slow taper --> will start to wean today to 40mg IV q12hr
Nebulized hypertonic 3% if needed
Mucolytics with mucinex
Mucus clearing devices
Given his suspected ABPA exacerbation, continue with antifungal therapy; ID has changed itraconazole to voriconazole 200 mg PO q12hr
Follow up sputum Cx species
Defer duration of antifungal Tx to ID
Antacid should be avoided if itraconazole is used and the medication should be taken with meals
There is data about IL-5 inhibition- Nucala or Fasenra as well as benefits of anti-IgE therapy- Xolair as well as IL/IL 13 inhibition-Dupixent
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
Total IgE level is pending
Patient was due for follow-up CT chest --> performed today showing new groundglass opacity in the left upper lobe + additional multifocal opacities and bibasilar consolidation. His prior dense right upper lobe consolidation has markedly improved
with some residual opacification. Cannot exclude aspergillosis -considering he remains afebrile, and is already on voriconazole, hold off on checking Fungitell
He also follows with hematology at [facility]-Dr. Cotton and locally Dr. Cedeño
Monitor blood sugar with goal >100 and <180mg/dL
Insulin supplementation if needed
DVT prophylaxis: On Eliquis
Nutrition
Early mobilization
Dr. Pinto reviewed with ED doc, primary team, ED nursing and at the bedside
Patient is hoping to be well enough this weekend to go to the [facility] this January and has a trip going to [place] May 2025[place]
Outpatient pulmonary follow-up with Dr. Pinto
Pulmonary service will continue to follow along.
Diagnostic data:
Chest x-ray 07/05/24-NAD, right upper lobe pneumonia, resolved-patient notified.
Chest x-ray 02/02/2025-bilateral peripheral airspace disease left greater than right suggesting pneumonia
CT chest 07/11/18-persistent infiltrates greatest at the left base-no pneumonia symptoms
Chest x-ray 09/24/19--right mid and lower lobe pneumonia
CT tpefg-KMZ-38/6/23-new mediastinal, bilateral hilar and left axillary adenopathy consistent with known CLL. Also a new 4 mm solid nodule in the left lower lobe. Patient notified-repeat CT chest in 4-[address] abdomen and cfwwej-JWE-25/6/23-several mildly enlarged retroperitoneal lymph nodes are slightly decreased in size compared to prior study, no groin lymph nodes, mild splenomegaly, slightly increased in size .
CT chest, abdomen and wycyow-UUS-4/12/24-new moderate right upper and middle lobe consolidation consistent with multifocal pneumonia, slightly increased right hilar lymph node, likely reactive, decreased size of mediastinal and axillary adenopathy
likely related to improving lymphoma, no acute abdominal elbow process, decrease in size of mildly prominent retroperitoneal lymph nodes and no new or progressive lymphadenopathy, stable mild splenomegaly, cholelithiasis without acute cholecystitis .
CT chest- 01/26/2024- no pulmonary embolism.� Mild subcarinal adenopathy approximated 1.4 cm.� Mild confluent bilateral hilar lymph void tissue.� Small mediastinal lymph nodes.� Patchy airspace opacity anterior left upper lobe consistent with
pneumonia.� Patchy airspace opacities.� Segment left lower lobe and lingula.� The left lower lobe patchy and slightly more confluent airspace disease noted.� Few small nodular opacities likely inflammatory includes a 8.3 mm nodule in the
anterolateral left upper lobe, 3 mm nodule in the right upper lobe and smaller nodular opacities scattered bilaterally.� Posterior medial right lung base bronchiectasis with intraluminal opacity likely reflecting mucous plugging.
Cardiac qfworcpwzbnytvi01/3/18--EF 50-55%,-RCA occlusion, severe Status post AVR/CAB x 1--08/15/18
Echocardiogram 09/10/19--Normal ventricular size and systolic function, EF 55-60%, normal diastolic function, bovine aortic valve prosthesis, mild aortic regurgitation, mild to moderately dilated aortic root measuring 4.1 cm, since echo September 2018and
change.
Echocardiogram 10/18/2024-EF 50-55%, trace mitral regurgitation, bovine aortic valve well-seated, PA systolic 28
PFT 01/30/14-FEV1 2.3 L (54%), TLC 65-72%, DLCO 57-62%
PFT 09/29/15-FEV1 2.4 L (62%), TLC 81%, DLCO 76%
PFT 01/04/17-FEV1 2.2 L (57%), TLC 73%, DLCO 57%PFT 10/30/18-FEV1 2.1 L (55%), TLC 70%, DLCO 55%
PFT 05/04/20--FEV1 2.13 L-56%, FVC 3.22 L-64%, TLC 75%, RV 81%, DLCO 58%. Moderate obstructive lung disease is present on spirometry, lung lines are mildly reduced in the diffusing capacity is moderately reduced.Spirometry 05/26/22-FEV1 1.76 L-47%,
FVC 2.5 L-49%, no significant BD response. Moderate restriction.
PFT 07/13/23-FEV1 1.87-51%, FVC 3.1 463%, no significant BD response, TLC 66%, RV 72%, DLCO 47%, DLCO/VA 85%. Moderate obstruction on spirometry, mild restriction on lung findings and mild to moderate reduction in diffusing capacity.
Spirometry-01/17/2024- FEV1 1.45-41%,FVC 2.39, 50, ratio 56, 7 % BD response
Spirometry- 02/15/2024- FEV1 1.89,� FVC 2.80, 58� Fev1 1.89, 53� ratio 67
PFT 04/04/24-FEV1 1.83-50%, FVC 2.77-56%, no significant BD response, TLC 60%, RV 60%, DLCO 51%, DLCO/VA 85%.� Moderate combined obstruction and restriction with moderate reduction in diffusing capacity.Spirometry 07/11/24-FEV1 1.3-37%, FVC 2.2
to-45%, no significant BD response.� Severe obstruction.
PFT 11/04/24-FEV1 1.72-40%, FVC 2.76-56%, significant 11% improvement in FEV1 postbronchodilator, TLC 60%, RV 72%, DLCO 50%, DLCO/VA 92%.� Moderate combined obstruction and restriction with significant BD response and moderate reduction in diffusing
capacity.
PSG-AHI-5, desaturation marjorie 80%, CPAP 15 cm-intolerant.
Hypogammaglobulinemia- IVGG every 8 weeks
Eosinophils 09/26/19--0
IgG 02/04/11--low-436
SARS CoV 2-08/05/20-positive
Hemoglobin 10/08/21-13
Eosinophils 08/29/21-1000Eosinophils 10/08/21-400
Sputum culture 01/18/24-heavy growth Escherichia coli-sensitive cefepime, ceftriaxone, cefuroxime, ciprofloxacin, imipenem, levofloxacin, meropenem, Zosyn and resistant to ampicillin, septal zone, gentamicin, tetracycline and Bactrim
CBC-01/26/2024-� CBC- WBC 12.7,� Abs Eos 1.2,� Immunoglobulin G 502,� CRP 6.60,� IgE 3301
sputum culture-01/26/2024-� SPutum- + MOLD/aspergillus fumagatas.�
IgE-01/27/2024-� IgE 3301
ABPA panel-01/27/2024- A. fumigatus #1 Ab, DETECTED,� Allergen/Mold 62.90 (High),�
Immunoglbulin E 3834� � � � � � � � � �
Beta-D Glucan- Negative for invasive,� Serum Aspergillus Galactoomannan Antigen Negative.IgE 02/28/24-down to 543.
Proteinase 3 antibody 01/27/24-0
Myeloperoxidase antibody-01/27/2024-0
Total time spent today was 36 minutes for this encounter. Time includes reviewing laboratory test/imaging results, reviewing pertinent medical records, obtaining and reviewing medical history, performing an appropriate exam, ordering medications,
tests and procedures. Time also includes documentation of this encounter, coordinating patient care and communicating with other healthcare professionals. Total time does not include separately billed tests performed on this date of service.
Subjective Data
-
Date of Service:
Date of Service: February 04, 2025
Chief Complaint: Pulmonary Follow Up
Subjective:
Pt seen this AM - resting in bed in [facility]. SOB continues to improve. Afebrile overnight. Denies chest pain, RAY, abd pain, N/V/f/c.
Review of Systems
General: Other (Negative unless mentioned above)
Objective Data
Data Reviewed
Vital Signs / I&O / Oxygen:
Vital Signs
Temp Pulse Resp BP Pulse Ox
98.0 F 94 16 137/75 96
02/04/25 07:08 02/04/25 07:59 02/04/25 07:47 02/04/25 07:59 02/04/25 07:47
Intake and Output
02/03/25 02/04/25 02/05/25
06:59 06:59 06:59
Intake Total 460 / 460 2070 / 2070
Output Total 1425 / 1425
Balance 460 / 460 645 / 645
SaO2 96
Nasal Cannula flow liters per 2
minute
Physical Exam
General: Respiratory Distress (negative), Comfortable, Chills (negative) and Sweats (negative)
HEENT: Normocephalic and Anicteric
Cardiovascular: S1-S2, Murmur (EDMAR heard across upper precordium), Peripheral Edema (negative) and Other (Tachycardic)
Respiratory: Wheeze (negative), Crackles ([place] in the bases to midlung [place]cal[place] bilaterally), Rhonchi (negative) and Non-Labored Respirations
GI: Soft, Non Distended, Non Tender and Normal Bowel Sounds
Neurology: AO x 3 and Tremors (negative)
Skin: Warm, Dry, Cyanosis (negative) and Jaundice (negative)
Labs/Micro/Reports
Lab Data
02/04/25 06:18
02/04/25 06:18
Microbiology
02/02/25 16:33 Sputum Respiratory Culture - Preliminary
Gram negative bacilli
02/02/25 16:33 Sputum Gram Stain - Preliminary
02/02/25 18:38 Urine Legionella Urinary Antigen - Final
Negative for Legionella pneumophila Serogroup 1 antigen.
A negative result does not rule out the possiblity of
Legionella infection due to other serogroups or species of
Legionella. Clinical correlation is recommended.
02/02/25 18:38 Urine Streptococcus pneumoniae Antigen (M - Final
Negative for Streptococcus pneumoniae antigen.
A negative result does not exclude infection with
Streptococcus pneumoniae. Clinical correlation is
recommended.
[2025-02-04] MEDS: LOPRESSOR 25 MG PO ×2 (11:04→19:45)
[2025-02-04 11:10] VITALS: BP 157/79
[2025-02-04 12:48] LABS: Glucose - Point of Care 183 mg/dl (70-99)
--- NOTE | 2025-02-04 13:22 | W.PN.ID1 ---
Date of Service
Date of Service: February 04, 2025
Today's Communication
Follow sputum cx and IgE
Assessment / Plan
# Pneumonia
# Leukocytosis
#Immunosuppressed host
Recurrent CLL on Zanubrutinib since 05/2023 ([facility]), prophylactic acyclovir and Bactrim 3x/wk
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
# hx ABPA treated with steroid/itraconazole through 05/2024
# Paroxysmal atrial fibrillation on Eliquis
-Await total immunoglobulin IgE
-sputum culture GNR
- Continue ceftriaxone and doxycycline pending sputum cx.
- Continue steroid and voriconazole pending IgE
Hold atorvastatin for now
- Continue Bactrim prophylaxis.
# Conditions [facility]
CLL diagnosed 1999 2011 status post chemotherapy with recurrence in 2020, currently on Zanubrutinib since 05/2023 ([facility])
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
pAfib on Eliquis
Hypertension
Chronic thrombocytopenia
Recurrent pneumonia
Allergic Bronchopulmonary Aspergillosis (2023)
TIA
CAD status post CAB x 1
Bio-Aortic valve replacement
Appendectomy
Diverticulitis status post sigmoidectomy with colostomy with subsequent colostomy reversal
Chief Complaint
-: Pneumonia
Subjective / Review of Systems
Continues to feel better.
Vital Signs / Physical Exam
Vital Signs
Vital Signs
Temp Pulse Resp BP Pulse Ox
97.7 F 96 16 157/79 93
02/04/25 11:10 02/04/25 11:10 02/04/25 11:10 02/04/25 11:10 02/04/25 12:53
Physical Exam
Constitutional: No Acute Distress
Cardiovascular: Regular Rate and S1/S2
Pulmonary: Rales (bibasilar crackles)
Gastrointestinal: Soft, Non Tender and Non Distended
Extremities: Negative Edema
Neurological: AO x 3
Objective Data
Lab Data
Lab Results
02/04/25 06:18
02/04/25 06:18
Estimated Creat Clear 78 ml/min 02/04/25 06:18
Total Bilirubin 2.0 mg/dl (0.2-1.3) H 02/02/25 12:33
AST 23 U/L (17-59) 02/02/25 12:33
ALT 25 U/L (0-50) 02/02/25 12:33
Alkaline Phosphatase 111 U/L (38-126) 02/02/25 12:33
Most recent labs reviewed.
Micro Results:
02/02/25 16:33 Respiratory Culture - Preliminary
Sputum Gram negative bacilli
Gram Stain - Preliminary
02/02/25 18:38 Legionella Urinary Antigen - Final
Urine Negative for Legionella pneumophila Serogroup 1 antigen.
A negative result does not rule out the possiblity of
Legionella infection due to other serogroups or species of
Legionella. Clinical correlation is recommended.
Streptococcus pneumoniae Antigen (M - Final
Negative for Streptococcus pneumoniae antigen.
A negative result does not exclude infection with
Streptococcus pneumoniae. Clinical correlation is
recommended.
02/02/25 CXR: Bilateral peripheral airspace opacities, left greater right
[2025-02-04] MEDS: NOVOLOG FLEXPEN-MODERATE RESISTANCE 1 UNITS SC (14:02)
--- NOTE | 2025-02-04 14:23 | PN.CDI ---
CDI
- -
CDI:
Physician Documentation Request
Admit Date: 02/02/25 17:03
Dear Doctor ,
Please review the following and provide your response in the progress notes.
Clinical Indicators:
Pt admitted with sepsis 2/2 NA/ Asthma flare / Suspected ABPA flare
Documented in progress notes 02/03 &02/04, ' Chronic diastolic hf Reported lower extremity swelling. maintained on home dose of Lasix 20mg/d for no crackles on lung exam today, will give IV Lasix 20mgx1 on top of PO Lasix...'
BNP 2290
Please provide a diagnosis for the above finding/ IV Lasix use:
Acute on Chronic Diastolic CHF
Chronic Diastolic CHF only
Other ( please specify)
Use of terms such as suspected, likely, concern for, or probable (associated with a specific diagnosis that is being evaluated, monitored, or treated as if it exists) are acceptable and can be coded in the inpatient setting, when documented at the
time of discharge.
Thank you,
Teresa Wilson RN
CDI Specialist
[facility]
Please use your independent medical judgment in providing your response.
--- NOTE | 2025-02-04 14:54 | CM ---
Patient seen at bedside with present. Patient plan is home with no needs, IMM completed and signed form placed on chart. CM will continue to follow for discharge planning needs.
Plan; home with no needs anticipated,
[2025-02-04 15:06] VITALS: BP 149/79
[2025-02-04 16:55] LABS: ALT (SGPT) 30 U/L (0-50); AST (SGOT) 26 U/L (17-59); Albumin 3.5 g/dl (3.5-5.0); Alkaline Phosphatase 118 U/L (38-126); Total Protein 5.8 g/dl (6.3-8.2)
[2025-02-04 17:15] LABS: Glucose - Point of Care 244 mg/dl (70-99)
[2025-02-04] MEDS: STERILE WATER FOR INJECTION 10 ML IV (17:32)
[2025-02-04] MEDS: ROCEPHIN 1000 MG IV (17:32)
[2025-02-04 19:08] VITALS: BP 140/86
[2025-02-04] MEDS: TYLENOL 650 MG PO (19:45)
[2025-02-04 21:57] LABS: Glucose - Point of Care 262 mg/dl (70-99)
[2025-02-04] MEDS: SYNTHROID 75 MCG PO (22:34)
[2025-02-04] MEDS: ATIVAN 0.5 MG PO (22:34)
[2025-02-04] MEDS: SENOKOT-S 1 TABLET PO (22:34)
[2025-02-04] MEDS: FLOMAX 0.4 MG PO (22:34)
[2025-02-04] MEDS: ZETIA 10 MG PO (22:34)
[2025-02-04 23:15] VITALS: BP 139/78
[2025-02-05] MEDS: SOLU-MEDROL PF 40 MG IV (03:40)
[2025-02-05 03:41] VITALS: BP 123/67
[2025-02-05 05:25] VITALS: BMI 26.7
[2025-02-05 05:55] LABS: Hematocrit 38.2 % (39.0-52.0); Hemoglobin 13.1 g/dL (13.0-18.0); Mean Corp Hgb Conc. 34.3 g/dL (33.0-37.0); Mean Corpuscular Volume 88.4 fL (80.0-94.0); Platelet Count 100 10^3/uL (130-400); Red Cell Dist. Width 13.2 % (11.5-14.5)
[2025-02-05 06:21] LABS: ALT (SGPT) 58 U/L (0-50); AST (SGOT) 35 U/L (17-59); Albumin 3.4 g/dl (3.5-5.0); Alkaline Phosphatase 107 U/L (38-126); Blood Urea Nitrogen 28 mg/dl (9-20); Calcium 8.8 mg/dl (8.4-10.2); Carbon Dioxide 26 mmol/L (22-30); Chloride 108 mmol/L (98-107); Estimated Creatinine Clearance 71 ml/min; Glucose 210 mg/dl (70-99); Magnesium 2.3 mg/dl (1.6-2.3); Potassium 4.3 mmol/L (3.5-5.1); Sodium 140 mmol/L (135-145); Total Protein 5.7 g/dl (6.3-8.2); eGFR > 60.00
[2025-02-05 07:30] VITALS: BP 126/70
[2025-02-05] MEDS: DUONEB 3 ML INH ×2 (07:38→11:16)
[2025-02-05 07:47] LABS: Glucose - Point of Care 204 mg/dl (70-99)
[2025-02-05] MEDS: BACTRIM DS 800 MG/160 MG 1 TABLET PO (08:27)
[2025-02-05] MEDS: LASIX 20 MG PO (08:27)
[2025-02-05] MEDS: VITAMIN C 500 MG PO (08:28)
[2025-02-05] MEDS: LOPRESSOR 25 MG PO (08:28)
[2025-02-05] MEDS: ATIVAN 0.5 MG PO (08:28)
[2025-02-05] MEDS: ZOVIRAX 400 MG PO (08:28)
[2025-02-05] MEDS: VIBRAMYCIN 100 MG PO (08:28)
[2025-02-05] MEDS: THERAGRAN 1 TABLET PO (08:28)
[2025-02-05] MEDS: ELIQUIS 5 MG PO (08:28)
[2025-02-05] MEDS: TUMS CHEWABLE TABLET 200 MG PO (08:28)
[2025-02-05] MEDS: VFEND 200 MG PO (08:28)
[2025-02-05] MEDS: VITAMIN D3 (cholecalciferol) 50 MCG PO (08:28)
[2025-02-05] MEDS: NORVASC 5 MG PO (08:28)
[2025-02-05] MEDS: NOVOLOG FLEXPEN 3 UNITS SC ×2 (08:29→13:21)
[2025-02-05] MEDS: MUCINEX 1200 MG PO (08:29)
[2025-02-05] MEDS: NOVOLOG FLEXPEN-MODERATE RESISTANCE 3 UNITS SC (08:29)
[2025-02-05] MEDS: NON-FORMULARY ITEM 160 MG PO (08:29)
[2025-02-05] MEDS: MIRALAX 17 GRAMS PO (08:30)
[2025-02-05] MEDS: TYLENOL 650 MG PO (08:40)
--- NOTE | 2025-02-05 10:23 | W.PN.PUL3 ---
Today's Communication / Plan
-
Total IgE WNL, voriconazole stopped given that ABPA has been ruled out
Continue with empiric treatment for pneumonia with doxycycline + Rocephin
Continue prednisone taper upon discharge, starting at 40 mg and reducing by 10 mg every fifth day until off
Mucolytics
OOB as tolerated
Supplemental O2 if needed to maintain SpO2 >90-94% - recommend checking home O2 assessment prior to discharge
Outpatient pulmonary office follow-up will be arranged with Dr. Pinto
No additional recommendations at this time. Pulmonary service will now sign off. Please reconsult if there are any additional questions/concerns, or if patient's respiratory status deteriorates.
Assessment
-
69-year-old never smoking male with underlying CLL, allergic bronchopulmonary aspergillosis, asthma, hypertension, hyperlipidemia, migraines, renal calculi, who was recently treated with 4 months of itraconazole and prednisone for ABPA flare and now
presents with similar symptoms including mucus production-pulmonary consulted for asthma/possible ABPA flare 02/02/2025.
Suspected ABPA flare (previously treated with steroid taper + 4 months of itraconazole, completed 06/12/2024) - ABPA ruled out given normal IgE serology, which was checked about 30 mins after he received steroids on 02/02
Multifocal pneumonia
Asthma with acute exacerbation
Leukocytosis
Mild hyperglycemia
Elevated total bilirubin
Elevated IgE 01/27/2024 - 3301
Conditions present prior to admission:
CLL diagnosed 2011 status post chemo with recurrence 2020-HUP/IVIG.
ABPA treated with prednisone/itraconazole.
Asthma with a moderate persistent obstructive lung defect with marked improvement in a moderate gas exchange capacity defect (per PFTs on 11/04/2024)
Multifocal pneumonia December 2023.
CAD/CABG/AVR.
Hypothyroid.
Thyroid cancer/thyroidectomy.
Hepatitis A.
Diverticulitis/sigmoidectomy colostomy/reversal 2021.
EFREM.
Renal Calculi
Melanoma.
GERD.
Tonsillectomy. Partial thyroidectomy. Bovine AVR/CABG 2018. Appendectomy 2020. Colostomy reversal 2021. Mohs procedure 2023.
Plan
Patient has a complicated medical history and current history suggests probable recurrence of ABPA-successfully treated with 4 weeks of itraconazole/prednisone and now many symptoms returned
Multiple chest x-rays, CTs of the chest, cardiac workup, pulmonary function test, sleep studies, and laboratory evaluations including significantly elevated IgE and Aspergillus antibodies are summarized below.
History is thought to be consistent with ABPA, but total IgE has returned and is WNL; of note, patient with underlying CLL and multiple other medical issues
Continue with empiric antibiotics with Rocephin + doxycycline
ID on board
Respiratory culture drawn 02/04/2025 has grown Streptococcus pneumoniae; urine antigens for Legionella + strep pneumonia both negative
Trend WBC and monitor temperature curve
Supplemental oxygen as needed
Assess discharge supplemental oxygen at time of discharge
Nebulizers
Continue systemic steroids with Solu-Medrol 60 mg IV q8hr with slow taper --> weaned yesterday to 40mg IV q12hr --> pt being prepared for discharge home today. Would discharge home on slow taper, starting at 40 mg and reducing by 10 mg every 5th
day until off
Nebulized hypertonic 3% if needed
Mucolytics with mucinex
Mucus clearing devices
Given that his total IgE is normal and ABPA ruled out, antifungal therapy stopped per ID
Patient was previously on itraconazole which was changed to voriconazole 200 mg PO q12hr
Patient was due for follow-up CT chest --> performed yesterday showing new groundglass opacity in the left upper lobe + additional multifocal opacities and bibasilar consolidation. His prior dense right upper lobe consolidation has markedly
improved with some residual opacification. Cannot exclude aspergillosis - considering he remains afebrile and is improving, hold off on checking Fungitell
He also follows with hematology at [facility]-Dr. Cotton and locally Dr. Cedeño
Monitor blood sugar with goal >100 and <180mg/dL
Insulin supplementation if needed
DVT prophylaxis: On Eliquis
Nutrition
Early mobilization
Dr. Pinto reviewed with ED doc, primary team, ED nursing and at the bedside
Patient is hoping to be well enough this to go to the [facility] this January and has a trip going to [place] May 2025-[place] cruise
Outpatient pulmonary follow-up with Dr. Pinto
No additional recommendations at this time. Pulmonary service will now sign off. Thank you for allowing us to be involved in the care of this patient. Please reconsult if there are any additional questions/concerns, or if patient's respiratory
status deteriorates.
Diagnostic data:
Chest x-ray 07/05/24-NAD, right upper lobe pneumonia, resolved-patient notified.
Chest x-ray 02/02/2025-bilateral peripheral airspace disease left greater than right suggesting pneumonia
CT chest 07/11/18-persistent infiltrates greatest at the left base-no pneumonia symptoms
Chest x-ray 09/24/19--right mid and lower lobe pneumonia
CT pfcrd-JKD-97/6/23-new mediastinal, bilateral hilar and left axillary adenopathy consistent with known CLL. Also a new 4 mm solid nodule in the left lower lobe. Patient notified-repeat CT chest in 4-[address] abdomen and woyjly-QFZ-42/6/23-several mildly enlarged retroperitoneal lymph nodes are slightly decreased in size compared to prior study, no groin lymph nodes, mild splenomegaly, slightly increased in size .
CT chest, abdomen and pxcdwb-FEX-4/12/24-new moderate right upper and middle lobe consolidation consistent with multifocal pneumonia, slightly increased right hilar lymph node, likely reactive, decreased size of mediastinal and axillary adenopathy
likely related to improving lymphoma, no acute abdominal elbow process, decrease in size of mildly prominent retroperitoneal lymph nodes and no new or progressive lymphadenopathy, stable mild splenomegaly, cholelithiasis without acute cholecystitis .
CT chest- 01/26/2024- no pulmonary embolism.� Mild subcarinal adenopathy approximated 1.4 cm.� Mild confluent bilateral hilar lymph void tissue.� Small mediastinal lymph nodes.� Patchy airspace opacity anterior left upper lobe consistent with
pneumonia.� Patchy airspace opacities.� Segment left lower lobe and lingula.� The left lower lobe patchy and slightly more confluent airspace disease noted.� Few small nodular opacities likely inflammatory includes a 8.3 mm nodule in the
anterolateral left upper lobe, 3 mm nodule in the right upper lobe and smaller nodular opacities scattered bilaterally.� Posterior medial right lung base bronchiectasis with intraluminal opacity likely reflecting mucous plugging.
Cardiac utjxqkwnlwwgnsg28/3/18--EF 50-55%,-RCA occlusion, severe Status post AVR/CAB x 1--08/15/18
Echocardiogram 09/10/19--Normal ventricular size and systolic function, EF 55-60%, normal diastolic function, bovine aortic valve prosthesis, mild aortic regurgitation, mild to moderately dilated aortic root measuring 4.1 cm, since echo September 2018and
change.
Echocardiogram 10/18/2024-EF 50-55%, trace mitral regurgitation, bovine aortic valve well-seated, PA systolic 28
PFT 01/30/14-FEV1 2.3 L (54%), TLC 65-72%, DLCO 57-62%
PFT 09/29/15-FEV1 2.4 L (62%), TLC 81%, DLCO 76%
PFT 01/04/17-FEV1 2.2 L (57%), TLC 73%, DLCO 57%PFT 10/30/18-FEV1 2.1 L (55%), TLC 70%, DLCO 55%
PFT 05/04/20--FEV1 2.13 L-56%, FVC 3.22 L-64%, TLC 75%, RV 81%, DLCO 58%. Moderate obstructive lung disease is present on spirometry, lung lines are mildly reduced in the diffusing capacity is moderately reduced.Spirometry 05/26/22-FEV1 1.76 L-47%,
FVC 2.5 L-49%, no significant BD response. Moderate restriction.
PFT 07/13/23-FEV1 1.87-51%, FVC 3.1 463%, no significant BD response, TLC 66%, RV 72%, DLCO 47%, DLCO/VA 85%. Moderate obstruction on spirometry, mild restriction on lung findings and mild to moderate reduction in diffusing capacity.
Spirometry-01/17/2024- FEV1 1.45-41%,FVC 2.39, 50, ratio 56, 7 % BD response
Spirometry- 02/15/2024- FEV1 1.89,� FVC 2.80, 58� Fev1 1.89, 53� ratio 67
PFT 04/04/24-FEV1 1.83-50%, FVC 2.77-56%, no significant BD response, TLC 60%, RV 60%, DLCO 51%, DLCO/VA 85%.� Moderate combined obstruction and restriction with moderate reduction in diffusing capacity.Spirometry 07/11/24-FEV1 1.3-37%, FVC 2.2
to-45%, no significant BD response.� Severe obstruction.
PFT 11/04/24-FEV1 1.72-40%, FVC 2.76-56%, significant 11% improvement in FEV1 postbronchodilator, TLC 60%, RV 72%, DLCO 50%, DLCO/VA 92%.� Moderate combined obstruction and restriction with significant BD response and moderate reduction in diffusing
capacity.
PSG-AHI-5, desaturation marjorie 80%, CPAP 15 cm-intolerant.
Hypogammaglobulinemia- IVGG every 8 weeks
Eosinophils 09/26/19--0
IgG 02/04/11--low-436
SARS CoV 2-08/05/20-positive
Hemoglobin 10/08/21-13
Eosinophils 08/29/21-1000Eosinophils 10/08/21-400
Sputum culture 01/18/24-heavy growth Escherichia coli-sensitive cefepime, ceftriaxone, cefuroxime, ciprofloxacin, imipenem, levofloxacin, meropenem, Zosyn and resistant to ampicillin, septal zone, gentamicin, tetracycline and Bactrim
CBC-01/26/2024-� CBC- WBC 12.7,� Abs Eos 1.2,� Immunoglobulin G 502,� CRP 6.60,� IgE 3301
sputum culture-01/26/2024-� SPutum- + MOLD/aspergillus fumagatas.�
IgE-01/27/2024-� IgE 3301
ABPA panel-01/27/2024- A. fumigatus #1 Ab, DETECTED,� Allergen/Mold 62.90 (High),�
Immunoglbulin E 3834� � � � � � � � � �
Beta-D Glucan- Negative for invasive,� Serum Aspergillus Galactoomannan Antigen Negative.IgE 02/28/24-down to 543.
Proteinase 3 antibody 01/27/24-0
Myeloperoxidase antibody-01/27/2024-0
Total time spent today was 39 minutes for this encounter. Time includes reviewing laboratory test/imaging results, reviewing pertinent medical records, obtaining and reviewing medical history, performing an appropriate exam, ordering medications,
tests and procedures. Time also includes documentation of this encounter, coordinating patient care and communicating with other healthcare professionals. Total time does not include separately billed tests performed on this date of service.
Subjective Data
-
Date of Service:
Date of Service: February 05, 2025
Chief Complaint: Pulmonary Follow Up
Subjective:
Patient seen today at bedside. Afebrile overnight. No acute respiratory. Currently denies chest pain, RAY, nausea, fevers chills.
Review of Systems
General: Other (Negative unless mentioned above)
Objective Data
Data Reviewed
Vital Signs / I&O / Oxygen:
Vital Signs
Temp Pulse Resp BP Pulse Ox
97.7 F 80 16 126/70 92
02/05/25 07:30 02/05/25 08:28 02/05/25 07:40 02/05/25 08:28 02/05/25 07:30
Intake and Output
02/04/25 02/05/25 02/06/25
06:59 06:59 06:59
Intake Total 2069 2620 / 2620
Output Total 1425 / 1425
Balance 645 / 645 2620 / 2620
SaO2 92
Nasal Cannula flow liters per 2
minute
Physical Exam
General: Respiratory Distress (negative), Comfortable, Chills (negative) and Sweats (negative)
HEENT: Normocephalic and Anicteric
Cardiovascular: S1-S2, Murmur (DEMAR heard across upper precordium), Peripheral Edema (negative) and Other (Tachycardic)
Respiratory: Wheeze (negative), Crackles (Lamoille in the bases to midlung alcala bilaterally), Rhonchi (negative) and Non-Labored Respirations
GI: Soft, Non Distended, Non Tender and Normal Bowel Sounds
Neurology: AO x 3 and Tremors (negative)
Skin: Warm, Dry, Cyanosis (negative) and Jaundice (negative)
Labs/Micro/Reports
Lab Data
02/05/25 05:21
02/05/25 05:21
Microbiology
02/02/25 16:33 Sputum Respiratory Culture - Preliminary
Gram negative bacilli
Streptococcus pneumoniae
02/02/25 16:33 Sputum Gram Stain - Preliminary
02/02/25 18:38 Urine Legionella Urinary Antigen - Final
Negative for Legionella pneumophila Serogroup 1 antigen.
A negative result does not rule out the possiblity of
Legionella infection due to other serogroups or species of
Legionella. Clinical correlation is recommended.
02/02/25 18:38 Urine Streptococcus pneumoniae Antigen (M - Final
Negative for Streptococcus pneumoniae antigen.
A negative result does not exclude infection with
Streptococcus pneumoniae. Clinical correlation is
recommended.
[2025-02-05 11:04] VITALS: BP 126/71
[2025-02-05 11:49] LABS: Glucose - Point of Care 295 mg/dl (70-99)
--- NOTE | 2025-02-05 12:24 | W.PN.ID1 ---
Addendum entered and electronically signed by Jessica Magallanes MD 02/06/25 07:49:
CDI response:
Strep pneumoniae/GNR pneumonia
Original Note:
Date of Service
Date of Service: February 05, 2025
Today's Communication
Transition ceftriaxone/doxycycline to empiric. Augmentin 875mg po bid through 02/15/25
Assessment / Plan
# Bacterial Pneumonia
# Leukocytosis (on steroid)
#Immunosuppressed host
Recurrent CLL on Zanubrutinib since 05/2023 ([facility]), prophylactic acyclovir and Bactrim 3x/wk
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
# hx ABPA treated with steroid/itraconazole through 05/2024
# Paroxysmal atrial fibrillation on Eliquis
-total immunoglobulin IgE = 154 -> ruled out allergic bronchopulmonary aspergillosis
- DC Voriconazole.
- Will defer steroid to Pulmonary.
- Can resume atorvastatin.
-sputum culture GNR and Strep pneumo
Spoke to micro: GNR could be Alcaliegenes, final result tomorrow
- Transition ceftriaxone/doxycycline to empiric. Augmentin 875mg po bid through 02/15/25
-Pt uptodate with Prevnar 20 vaccine.
- Continue Bactrim MWF prophylaxis.
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
CLL diagnosed 1999 2011 status post chemotherapy with recurrence in 2020, currently on Zanubrutinib since 05/2023 ([facility])
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
pAfib on Eliquis
Hypertension
Chronic thrombocytopenia
Recurrent pneumonia
Allergic Bronchopulmonary Aspergillosis (2023)
TIA
CAD status post CAB x 1
Bio-Aortic valve replacement
Appendectomy
Diverticulitis status post sigmoidectomy with colostomy with subsequent colostomy reversal
Chief Complaint
-: Pneumonia
Subjective / Review of Systems
He states he is leaving today.
Vital Signs / Physical Exam
Vital Signs
Vital Signs
Temp Pulse Resp BP Pulse Ox
98.0 F 86 16 126/71 93
02/05/25 11:04 02/05/25 11:17 02/05/25 11:17 02/05/25 11:04 02/05/25 11:53
Physical Exam
Constitutional: No Acute Distress
Eyes: No Conjunctival Hemorrhage and Sclera Anicteric
Cardiovascular: Regular Rate and S1/S2
Pulmonary: Rales (bibase)
Gastrointestinal: Soft, Non Tender, Non Distended and Normal Bowel Sounds
Extremities: Negative Edema
Neurological: AO x 3
Objective Data
Lab Data
Lab Results
02/05/25 05:21
02/05/25 05:21
Estimated Creat Clear 71 ml/min 02/05/25 05:21
Total Bilirubin 0.8 mg/dl (0.2-1.3) 02/05/25 05:21
AST 35 U/L (17-59) 02/05/25 05:21
ALT 58 U/L (0-50) H 02/05/25 05:21
Alkaline Phosphatase 107 U/L (38-126) 02/05/25 05:21
Most recent labs reviewed.
Micro Results:
02/02/25 16:33 Respiratory Culture - Preliminary
Sputum Gram negative bacilli
Streptococcus pneumoniae
Gram Stain - Preliminary
02/02/25 18:38 Legionella Urinary Antigen - Final
Urine Negative for Legionella pneumophila Serogroup 1 antigen.
A negative result does not rule out the possiblity of
Legionella infection due to other serogroups or species of
Legionella. Clinical correlation is recommended.
Streptococcus pneumoniae Antigen (M - Final
Negative for Streptococcus pneumoniae antigen.
A negative result does not exclude infection with
Streptococcus pneumoniae. Clinical correlation is
recommended.
02/02/25 CXR: Bilateral peripheral airspace opacities, left greater right
Care Review
Plan reviewed with: Physician (Drs. Delphine Manzano and James)
[2025-02-05] MEDS: NOVOLOG FLEXPEN-MODERATE RESISTANCE 5 UNITS SC (13:21)
--- NOTE | 2025-02-05 13:23 | CM ---
CM following re: discharge planning.
Reviewed pt's chart, met with pt.
Discharge order noted. Pt is aware, expressed his agreement with discharge and pt stated his spouse will transport home. Pt described himself as independent with functional ability.
IMM reviewed, placed on chart, pt has a copy.
No after care VN services indicated.
D/C plan: home with no after care VN needs. Spouse to transport.
--- NOTE | 2025-02-05 13:43 | W.PN.HOSP.TC ---
Today's Communication/Plan
-
d/c home
Assessment / Plan
Assessment / Plan
pt is a 69 year old male
Multifocal pneumonia - Strep pneumonia/gram neg
Sepsis
History of ABPA
Immunocompromise state
- Patient presented with new onset of shortness of breath
- Chest x-ray showing bilateral pneumonia
- Legionella neg. sputum cs growing Streptococcus pneumonia/Gram neg rods.
- Asp. IgE ~ 3300 in past, repeat negative.
- ID and pulmonology has been involved in care
- Voriconazole to be discontinued as Aspergillus IgE level are low
- Final identification of gram-negative marcus in sputum culture is pending. ID discussed with microbiology and recommended for patient to be discharged on Augmentin 875mg BID for 1 week.
Asthma flare up
- provide prednisone taper at discharge
- managed by pulmonology
CLL
h/o of IG deficiency
- initial dx of CLL in , got chemotherapy. reoccurrence in and on Brukinsa 160mg/bid
- Gets periodic Ig infusion with oncology office.
- Maintained on prophylactic dose of Bactrim and acyclovir
h/o CAD/CABG
h/o bioprosthetic AVR
Chronic diastolic hf
- continue on home dose lasix at discharge
Hyperglycemia
- from steroid use
- a1c of 5.7, was 6 in
- advised carb controlled diet while being tapered off steroids
DVT PPX - eliquis
Full code
More than 30 minutes spent in discharge including
Final examination of the patient
Summarizing hospital stay
Instructions for continuing care to all relevant caregivers
Preparation of discharge records, prescriptions, and referral forms
Total time spent (in minutes): 37 mins
Anticipated Discharge: Today
Subjective/Interval History
-
Date of Service: February 05, 2025
breathing is better
afebrile overnight
Objective Data
-
Labs:
Laboratory Results
02/05/25
05:21
WBC 15.6 H
Hgb 13.1
Hct 38.2 L
Plt Count 100 L
Sodium 140
Potassium 4.3
Chloride 108 H
Carbon Dioxide 26
BUN 28 H
Creatinine 1.1
Glucose 210 H
Calcium 8.8
Total Bilirubin 0.8
AST 35
ALT 58 H
Alkaline Phosphatase 107
Vital Signs:
Vital Signs
Temp Pulse Resp BP Pulse Ox
98.0 F 86 16 126/71 93
02/05/25 11:04 02/05/25 11:17 02/05/25 11:17 02/05/25 11:04 02/05/25 11:53
I&O
02/04/25 02/05/25 02/06/25
06:59 06:59 06:59
Intake Total 2069 / 2069 2620 / 2620
Output Total 1425 / 1425
Balance 645 / 645 0 / 2620
Review of Systems
-
Respiratory: Reports No Symptoms
Cardiac: Reports No Symptoms
Abdomen/GI: Reports No Symptoms
Physical Exam
-
General: No Apparent Distress and Comfortable
HEENT: Negative Oxygen
Respiratory: Clear to Auscultation
Cardiac: Regular Rhythm and S1/S2; Negative Murmur or Rub
GI: Soft, Nontender and Nondistended
Musculoskeletal: No Edema
Neuro: Awake, Alert, Oriented, No Motor Deficits and Nonfocal/Grossly Intact
Psych: Calm
[2025-02-05 15:03] VITALS: BP 123/65
--- NOTE | 2025-02-05 15:58 | PTCARENOTE ---
Patient discharged home, transported by spouse. This RN removed patient's IV, tele pack removed by tech, vitals taken by tech stable. Patient dressed and gathered belongings independently in room. Home med Brukinsa handed back to patient by this RN.
This RN reviewed discharge instructions/medications with patient at bedside, patient verbalized understanding. This RN communicated with MD over phone, MD stated patient okay to be DC without insulin/blood sugar meter while on steroid taper, stated
for patient to maintain carb controlled diet and follow up with PCP for repeat labs/sugar checks. Patient verbalized understanding. Patient taken down to spouse's car at main lobby via staff escort and wheelchair.
--- NOTE | 2025-02-05 17:03 | PN.CDI ---
CDI
- -
CDI:
Physician Documentation Request
Admit Date: 02/02/25 17:03
Dear Doctor,
Please review the following and provide your response in the progress notes.
Clinical Indicators:
Pt admitted with sepsis 2/2 PNA/ Asthma flare / Suspected ABPA flare
ID progress note 02/05,' Transition ceftriaxone/doxycycline to empiric. Augmentin 875mg po bid through 02/15/25... Bacterial Pneumonia....-sputum culture GNR and Strep pneumo Spoke to micro: GNR could be Alcaliegenes, final result tomorrow ...'
Based on the above, could you clarify in the Progress Notes further specificity regarding the known, suspected or likely type of pneumonia you are treating (recognizing the specific organism may not be known)?
Strep Pneumonia /GNR Pneumonia
Bacterial pneumonia only
Other organism - specify known or suspected type
Other type
Use of terms such as suspected, likely, concern for, or probable (associated with a specific diagnosis that is being evaluated, monitored, or treated as if it exists) are acceptable and can be coded in the inpatient setting, when documented at the
time of discharge.
Thank you,
Teresa Wilson RN
CDI Specialist
[place] [facility]
Please use your independent medical judgment in providing your response.
--- NOTE | 2025-02-07 08:28 | W.DCSUMMARY ---
Discharge Summary
Discharge Data
Date of Admission: 02/02/25
Date of Discharge: 02/05/25
-
Pending Results: Yes
Additional Pending Results:
Sputum culture report
Hospital Course
Discharging Physician : Dr Alex Manzano
Disposition : To home
Primary care physician : Dr Irwin Kay
Principal Discharge diagnosis :
Multifocal pneumonia
Sepsis
Immunocompromise state
Asthma flareup
Steroid use related Hyperglycemia
Nonsustained ventricular tachycardia
Chronic Discharge diagnosis :
History of allergic bronchopulmonary aspergillosis
Chronic lymphocytic leukemia
History of immune deficiency needing episodic immunoglobulin infusion
History of coronary disease with bypass
History of bioprosthetic aortic valve replacement
Prediabetic
Benign prostatic hyperplasia
Hyperlipidemia
History of hepatitis A
Obstructive sleep apnea
History of renal calculi
Gastroesophageal reflux disease
Hospital Course :
Patient is a 69-year-old male with mentioned past medical history came to ER for having 2 weeks of ongoing cough with minimal phlegm production and some shortness of breath. Patient was also reported to having some fever and chills at home. In ER
patient had a chest x-ray which showed multifocal pneumonia and patient was started on broad-spectrum antibiotic. On exam patient was also felt to having asthma flareup and was started on steroids. Patient does have history of ABPA and pulmonology
and infectious disease physicians were involved in care. Patient initially was started empirically on antifungal therapy. IgE Aspergillus antibody levels were relatively low and thus was ruled out. Patient was taken off of antifungal therapy.
Patient sputum culture grew Streptococcus pneumonia and gram negative rods. Patient had clinical improvement with empiric antibiotic therapy and at discharge patient was changed to oral Augmentin therapy. Patient opted not to wait for final sputum
culture report to identify gram-negative organism. Patient was provided tapering course of steroid. Patient to follow-up with greens laborer in office.
Important imaging findings :
None
Procedure findings :
None
Discharge Plan
-
Patient Disposition: Home (Routine Discharge)
Discharge Diagnosis/Procedures: Bacterial pneumonia
Condition: Fair
Diet: Regular
Activity: As tolerated
Driving Restrictions: As prior to admission
Bathing Restrictions: OK to Shower
Referrals:
Irwin Kay MD [Family Provider, [facility]] - in one week
Bebeto Pinto MD [Active, Pulmonary Medicine] - in two to three weeks
Prescriptions:
New
amoxicillin-pot clavulanate 875-125 mg tablet
1 tab PO BID Qty: 20 0RF
prednisone 10 mg Tablet
See Rx Instructions .ROUTE .COMPLEX Qty: 30 0RF
Rx Instructions:
Take By Mouth:
40 mg daily x3 days, 30 mg daily x3 days,
20 mg daily x3 days, 10 mg daily x3 days.
Continued
levothyroxine 75 MCG tablet
75 mcg PO HS
lorazepam 0.5 MG tablet
0.5 mg PO BID
ezetimibe 10 MG tablet
10 mg PO HS
ascorbic acid (vitamin C) [Vitamin C] 500 MG tablet
500 mg PO DAILY
metoprolol tartrate 25 MG tablet
25 mg PO BID
sulfamethoxazole-trimethoprim [Bactrim DS] 800-160 mg Tablet
1 tab PO MOWEFR
Fruit and Vegetable Daily 5-6-150 mg Capsule
2 cap PO BID
testosterone 50 mg/5 gram (1 %) gel
1 packet topical DAILY
Patient Comments:
02/02/2025, apply to shoulder, upper arms, or abdomen daily; pt. applied to upper arms today (02/02/2025).
fluticasone furoate-vilanterol [Breo Ellipta] 100-25 mcg/dose Blister With Device
1 inh INHALATION R DAILY
guaifenesin [Mucinex] 600 mg Tablet Extended Release 12hr
600 mg PO BID
Brukinsa 80 mg Capsule
160 mg PO BID
amlodipine [Norvasc] 5 mg Tablet
5 mg PO DAILY
dexamethasone 4 mg Tablet
8 mg PO DIRECTED
Patient Comments:
02/02/2025, take 2 tablets BID the day before and 2 tablets the morning of the IVIG infusion.
cholecalciferol (vitamin D3) 50 mcg (2,000 unit) Tablet
50 mcg PO DAILY
Align
1 cap PO DAILY
multivitamin Tablet
1 tab PO DAILY
acyclovir 400 mg Tablet
400 mg PO Q12H
acetaminophen [Tylenol Extra Strength] 500 mg Tablet
1,000 mg PO Q8HPRN PRN (Reason: mild pain)
sildenafil 100 mg Tablet
100 mg PO DAILY PRN (Reason: ed)
calcium carbonate 200 mg calcium (500 mg) Tablet,Chewable
200 mg PO DAILY
furosemide 20 mg Tablet
20 mg PO MOWEFR
furosemide 20 mg Tablet
20 mg PO DAILY PRN (Reason: edema)
albuterol sulfate 90 mcg/actuation Hfa Aerosol Inhaler
2 puff INHALATION R Q4HPRN PRN (Reason: sob)
glucosamine-chondroitin 250-200 mg Tablet
2 tab PO DAILY
alfuzosin 10 mg Tablet Extended Release 24 Hr
10 mg PO HS
jfachiomsp-vrnhepenhkwen-rlid 50-300-40 mg Capsule
1 cap PO Q4H PRN (Reason: migraines)
Ivig Infusion
1 dose IV Q7W
Patient Comments:
02/02/2025, pt. gets this infusion through [facility] roughly every 7 weeks per pt.
Metamucil powder
1 tsp PO DAILY
zinc 30 mg tablet
30 mg PO DAILY
atorvastatin 40 mg Tablet
40 mg PO DAILY
Eliquis 5 mg Tablet
5 mg PO BID
Discharge Orders:
Discharge Patient (As Directed); Ordered 02/05/25
Ordered By: Alex Manzano
Discharge Date and Time
Discharge Date/Time: 02/05/25 16:00
Print Language: ROMANIAN
== END 2025-02-05 16:00 | disposition home or self-care (01) | DRG 871 ==
LOC: 2 NORTH 17:03
PROVIDERS: Emergency Medicine; Internal Medicine; Nurse Practitioner Family; ADMITTING PHYSICIAN Hospitalist; ATTENDING PHYSICIAN Hospitalist; CONSULT PHYSICIAN Internal Medicine Critical Care Medicine; EMERGENCY PHYSICIAN Emergency Medicine; FAMILY PHYSICIAN Family Medicine; OTHER PHYSICIAN Internal Medicine Infectious Disease
DX: A41.9 Sepsis, unspecified organism (principal); J18.9 Pneumonia, unspecified organism; J44.1 Chronic obstructive pulmonary disease with (acute) exacerbation; J45.901 Unspecified asthma with (acute) exacerbation; J44.0 Chronic obstructive pulmonary disease with (acute) lower respiratory infection; I50.32 Chronic diastolic (congestive) heart failure; C91.10 Chronic lymphocytic leukemia of B-cell type not having achieved remission; I11.0 Hypertensive heart disease with heart failure; I48.0 Paroxysmal atrial fibrillation; Z79.01 Long term (current) use of anticoagulants; Z80.6 Family history of leukemia
CPT/HCPCS: 71046; 71250; 80048; 80053; 82248; 82785; 82962; 83036; 83735; 83880; 84484; 85025; 85027; 87070; 87071; 87077; 87186; 87205; 87449; 87899; 93005; 94640; 96360; 99285

== ENCOUNTER → 2025-02-18 11:56 | Outpatient (REF) | payer MEDICARE, OTHER, SELFPAY | LOC: RAD 11:56 | PROVIDERS: ATTENDING PHYSICIAN Family Medicine | DX: J18.9 Pneumonia, unspecified organism (principal) | CPT/HCPCS: 71046 ==

== ENCOUNTER → 2025-03-10 11:35 | Outpatient (REF) | payer MEDICARE, OTHER, SELFPAY | LOC: RAD 11:35 | PROVIDERS: ATTENDING PHYSICIAN Family Medicine | DX: R05.1 Acute cough (principal) | CPT/HCPCS: 71046 ==

== ENCOUNTER → 2025-04-03 11:28 | Outpatient (REF) | payer MEDICARE, OTHER, SELFPAY | LOC: RAD 11:28 | PROVIDERS: ATTENDING PHYSICIAN Nurse Practitioner Family; FAMILY PHYSICIAN Family Medicine | DX: R04.2 Hemoptysis (principal) | CPT/HCPCS: 71046 ==

== ENCOUNTER → 2025-04-07 13:33 | Outpatient (REF) | payer MEDICARE, OTHER, SELFPAY | LOC: RAD 13:33 | PROVIDERS: ATTENDING PHYSICIAN Nurse Practitioner Family; FAMILY PHYSICIAN Family Medicine | DX: B44.81 Allergic bronchopulmonary aspergillosis (principal) | CPT/HCPCS: 70486 ==

== ENCOUNTER → 2025-04-10 12:00 | Outpatient (REF) | payer MEDICARE, OTHER, SELFPAY | LOC: CLAB 12:00 | PROVIDERS: ATTENDING PHYSICIAN Student in an Organized Health Care Education/Training Program | DX: J32.9 Chronic sinusitis, unspecified (principal) | CPT/HCPCS: 87070; 87205 ==

== ENCOUNTER → 2025-04-24 14:44 | Outpatient (REF) | payer MEDICARE, OTHER, SELFPAY | LOC: RAD 14:44 | PROVIDERS: ATTENDING PHYSICIAN Family Medicine | DX: R06.09 Other forms of dyspnea (principal) | CPT/HCPCS: 71046 ==

== ENCOUNTER → 2025-05-06 11:00 | Outpatient (REF) | payer MEDICARE, OTHER, SELFPAY | LOC: CLAB 11:00 | PROVIDERS: ATTENDING PHYSICIAN Student in an Organized Health Care Education/Training Program | DX: J32.9 Chronic sinusitis, unspecified (principal) | CPT/HCPCS: 87102 ==

== ENCOUNTER 2025-06-16 06:16 | Day surgery (SDC) | payer MEDICARE, OTHER, SELFPAY ==
[2025-06-09 14:09] VITALS: BMI 27.1
[2025-06-16] VITALS (10 sets, daily range): BP systolic 131–149; BP diastolic 72–84; BMI 27.1
[2025-06-16] MEDS: NORMOSOL-R/PLASMALYTE-A 1000 IV (11:02)
--- NOTE | 2025-06-17 07:58 | OR.RPT ---
Operative Report
Operative Report
Patient name: Watson Ward
Date of : 1955

Date of operation: 06/16/2025
Preoperative diagnosis: Chronic bilateral sphenoid sinusitis, chronic bilateral ethmoid sinusitis, chronic bilateral maxillary sinusitis, bilateral inferior turbinate hypertrophy, bilateral frontal sinusitis
Postoperative diagnosis: Chronic bilateral sphenoid sinusitis, chronic bilateral ethmoid sinusitis, chronic bilateral maxillary sinusitis, bilateral inferior turbinate hypertrophy, bilateral frontal sinusitis:
Operation/procedures performed:
1. Bilateral total ethmoidectomy with sphenoidotomy and removal of tissue from sphenoid sinus
2. Bilateral frontal sinus exploration
2. Bilateral maxillary antrostomy with tissue removal
3. Bilateral inferior turbinate reduction
Surgeon: Maciel Albright DO
Anesthesia: General, ETT
Anesthesiologist: Marivel
Surgical Indications: Watson is a 86-year-old man who presented to the otolaryngology department with a chief complaint of chronic thick and foul-smelling postnasal drip, chronic cough and facial pain and pressure. He presented with a CT of the
sinuses which showed extensive bilateral pansinusitis, worst in the right sphenoid sinus. He has a history of CLL that is currently in remission and in active surveillance with frequent blood draws. He had a prior history of ABPA that has been
treated. Sputum cultures have showed 1 out of 2 sputum's positive for MAC. We have discussed with infectious disease specialists who had recommended for upfront endoscopic sinus surgery as the treatment for MAC includes an extensive duration of
antibiotics. We discussed the risks benefits and alternatives to continued observation with medical management alone which included intranasal corticosteroids and nasal saline irrigation versus endoscopic sinus surgery. As the patient had been
dealing with this for several months, was not feeling like himself and bothered by symptoms, he elected to proceed with endoscopic sinus surgery.
Details of Procedure: The patient was met in the preoperative holding area where informed written consent was reviewed and all questions were answered. The patient was then brought back to the operating room and transferred supine on the operating
room table secured with a safety belt. General anesthesia was induced and the patient was intubated orotracheally without difficulty by the anesthesia team. The table was then rotated 90 degrees away from anesthesia and the Xyleme sinus
navigation equipment was positioned. Pledgets soaked in topical 4% cocaine were placed into the bilateral nasal cavities under direct visualization. A surgical timeout was then performed confirming the necessary perioperative information. While the
nasal cavities were decongesting, the navigation system was then traced and calibrated and confirmed to be functional. Next 1% lidocaine with epinephrine 1-100,000 were infiltrated into the bilateral nasal cavities and paranasal sinus structures
for topical anesthesia and vasoconstriction.
The operation was started on the right. Extensive, thick yellow pus was seen coming from the right sphenoethmoidal recess. This was collected and sent for culture. A Lawnside was used to gently mobilize the right middle turbinate mary bullosa
medially. Next a straight Christoph-Cut forcep was used to resect the inferior third and lateral surface of the middle turbinate which completed the right mary bullosa resection. Next a curved ball-tipped probe was used to identify the uncinate process
and reflected anteriorly away from the ethmoid bulla and semilunar hiatus. A backbiter to the left was used to resect portions of the uncinate process and the uncinectomy was completed with the microdebrider. A backbiter was then used to start the
maxillary antrostomy which was then completed and cleaned with a microdebrider. There was extensive polypoid tissue in the right maxillary sinus that was resected with the microdebrider. Next the ethmoid bulla was entered in a low medial fashion
with the microdebrider tip and the anterior ethmoidectomy was completed with a straight Christoph-Cut, straight Blakesley and microdebrider. Dissection proceeded posteriorly and medially through the posterior ethmoid cells. Loose bone fragments were
removed with a microdebrider. Next with careful dissection and attention to the sinus navigation, the right sphenoid sinus os was identified and entered with a straight suction. The sphenoid sinusotomy was enlarged with a microdebrider facing
inferior and medial direction. Dissection then proceeded gently laterally. The right sphenoid sinus was directly visualized and there was extensive polypoid tissue seen. There were no obvious fungal elements nor tumors present. The right
sphenoid sinus and remainder of the right paranasal sinuses were irrigated copiously with sterile saline and suctioned out. Attention was then turned toward the frontal sinus drainage pathway and the agger nasi cell was resected and the frontal
sinus drainage pathway was confirmed to be patent. Afrin-soaked pledgets were placed in the right nasal cavity and paranasal sinus operative field for hemostasis and attention was turned to the left.
A Lawnside elevator was used to gently mobilize the left middle turbinate medially so that the uncinate process could be visualized. The inferior inferior of the middle turbinate was resected using a straight Christoph-Cut and microdebrider. A curved
ball-tipped was used to gently reflect the uncinate process anteriorly and a backbiter to the right was used to start the uncinectomy which was completed with a microdebrider. A curved ball-tipped probe and backbiter to the right were then used to
confirm the left maxillary sinus, begin the maxillary antrostomy, and completed. A microdebrider was used to clean loose tissue edges and remove tissue from the left maxillary sinus. Next the ethmoid bulla was entered in a lateral and medial
fashion to avoid injury to the orbit and dissection continued posteriorly using microdebrider. The posterior ethmoid cells were entered using a microdebrider and a lateral to medial fashion. The posterior ethmoidectomy was completed using a
microdebrider. Next a straight tracking suction was used to anterior the left sphenoid sinus and once confirmed with direct visualization and the image guidance that the sphenoid sinus had been entered, the sphenoid sinusotomy was enlarged using
microdebrider. The left nasal cavity and paranasal sinuses were irrigated copiously with sterile saline and suctioned out. This completed the operation on the left. Next, submucous resection inferior turbinate outfracture was completed. This was
followed with a suction monopolar Bovie cautery for hemostasis and this was also used to obtain hemostasis in the bilateral operative alcala. Nasopore hemostatic gauze was placed in the bilateral ethmoid cavities for hemostasis. An orogastric tube
was then passed to decompress the stomach and pharynx.
This concluded the procedure. The patient was rotated back toward the anesthesia team where they emerged safely from anesthesia and were extubated without difficulty. The patient was brought safely to the PACU in stable condition.
Complications: None immediately present.
Blood loss: 15cc
Disposition: Stable to PACU followed by d/c t home
== END 2025-06-16 17:32 | disposition home or self-care (01) ==
LOC: SDS 06:16
PROVIDERS: ATTENDING PHYSICIAN Student in an Organized Health Care Education/Training Program
DX: J32.4 Chronic pansinusitis (principal); J34.3 Hypertrophy of nasal turbinates; R05.3 Chronic cough; C91.11 Chronic lymphocytic leukemia of B-cell type in remission
CPT/HCPCS: 31257; 30140; 31267; 87015; 87070; 87102; 87116; 87205; 88304; 88311